=== PATIENT | male | born 1950 | race Caucasian/White ===

== ENCOUNTER 2017-11-26 16:23 | Inpatient (IN) | payer MEDICARE, MEDICAID ==
[~2017-11-26] VITALS: Ht 177.8 cm; Wt 96.4 kg
[2017-11-26] VITALS (17 sets, daily range): BP systolic 108–179; BP diastolic 65–88
[~2017-11-26 16:23] MED LIST: AMLO10TA PO; ASPI81TA46 PO; CARV6.253 PO; CHLO25TA2 PO; CINN1CAP PO; CLOP75TA15 PO; LISI40TA4 PO; METF500T PO; RAPATHA INJ
[2017-11-26 16:55] LABS: BASOPHILS % (AUTO) 0.2 % (0-1); EOSINOPHILS # (AUTO) 0.5 X10'3 (0-0.9); EOSINOPHILS % (AUTO) 5.4 % (0-6); HEMATOCRIT 42.7 % (42.0-52.0); HEMOGLOBIN 14.6 g/dl (14.0-17.9); LYMPHOCYTES # (AUTO) 1.6 X10'3 (1.1-4.8); LYMPHOCYTES % (AUTO) 17.5 % (21-51); MEAN CORPUSCULAR HEMOGLOBIN 32.5 PG (27.0-31.0); MEAN CORPUSCULAR HGB CONC 34.1 % (33.0-36.5); MEAN CORPUSCULAR VOLUME 95.3 FL (78-98); MONOCYTES # (AUTO) 0.7 X10'3 (0-0.9); MONOCYTES % (AUTO) 7.8 % (2-12); NEUTROPHILS # (AUTO) 6.5 X10'3 (1.8-7.7); NEUTROPHILS % (AUTO) 69.1 % (42-75); PLATELET COUNT 205 X10'3 (140-440); RED BLOOD COUNT 4.48 X10'6 (4.70-6.10); RED CELL DISTRIBUTION WIDTH 13.7 % (11.5-14.5); WHITE BLOOD COUNT 9.4 X10'3 (4.5-11.0)
[2017-11-26 17:05] LABS: PARTIAL THROMBOPLASTIN TIME 25 SECONDS (22-32); PROTHROMBIN TIME 10.3 SECONDS (9.0-12.0)
[2017-11-26 17:11] LABS: ALANINE AMINOTRANSFERASE 48 U/L (12-78); ALBUMIN 3.6 G/DL (3.4-5.0); ALBUMIN/GLOBULIN RATIO 0.9 (1.1-1.5); ALKALINE PHOSPHATASE 72 IU/L (46-116); ANION GAP 10 (8-16); ASPARTATE AMINO TRANSFERASE 46 U/L (10-37); BILIRUBIN,TOTAL 0.4 MG/DL (0.1-1.0); BLOOD UREA NITROGEN 15 MG/DL (7-18); BUN/CREATININE RATIO 13.6 (5.4-32.0); CALCIUM 9.1 MG/DL (8.5-10.1); CHLORIDE 102 MMOL/L (99-107); GLUCOSE 185 MG/DL (70-104); MAGNESIUM 1.6 MG/DL (1.5-2.4); POTASSIUM 4.1 MMOL/L (3.5-5.1); SODIUM 140 MMOL/L (135-145); TOTAL CARBON DIOXIDE 28.4 MMOL/L (24-32); TOTAL PROTEIN 7.6 G/DL (6.4-8.2); eGFR 67 ML/MIN
[2017-11-26] MEDS ORDERED: LIDOcaine 1%/PF (10mg/ml) 5ml vial ONE (17:40)
[2017-11-26] MEDS ORDERED: iohexol 300 MG/1 ML 50ml polymer ONE ×2 (17:41→17:55)
[2017-11-26] MEDS ORDERED: iohexol 300mg/ml 100ml inj. ONE ×2 (17:41→17:55)
[2017-11-26] MEDS ORDERED: midazolam 2 mg/2 ml injection IV PRN (17:45)
[2017-11-26] MEDS ORDERED: LIDOcaine 1% 30ml vial SQ ONE (17:45)
[2017-11-26] MEDS ORDERED: normal saline 1000ml 1,000 ML IV SCH (17:45)
[2017-11-26 17:46] LABS: CLARITY,URINE Clear (Clear); COLOR,URINE Yellow (Yellow); GLUCOSE, URINE 500 mg/dl (Neg); KETONES,URINE Negative (Neg); LEUKOCYTE ESTERASE ,URINE Negative (Neg); NITRITES, URINE Negative (Neg); OCCULT BLOOD,URINE Negative (Neg); PROTEIN,URINE Negative (Neg)
[2017-11-26 17:47] LABS: UA COLLECTION TYPE CLN CATCH MIDSTREAM
[2017-11-26] MEDS ORDERED: midazolam 2 mg/2 ml injection ONE ×2 (17:54→18:47)
[2017-11-26] MEDS ORDERED: heparin 1,000 UNITS/NS 500ml 500 ML ONE ×2 (17:54→19:18)
[2017-11-26] MEDS ORDERED: fentaNYL/PF 50MCG/1 ML 2ML syringe ONE ×2 (17:54→18:47)
[2017-11-26] MEDS ORDERED: heparin 1,000unit/ml 10ml vial 0 ML ONE (17:54)
[2017-11-26] MEDS ORDERED: heparin 1,000 UNITS/NS 500ml 500 ML IV SCH (20:30)
[2017-11-26] MEDS ORDERED: potassium Cl 20 mEq SR tablet PO PRN ×2 (21:05)
[2017-11-26] MEDS ORDERED: magnesium 4gm in 100ml NS 100 ML IV PRN (21:05)
[2017-11-26] MEDS ORDERED: magnesium 2GM in 50ml NS 50 ML IV PRN (21:05)
[2017-11-26] MEDS ORDERED: magnesium Cl slow-release 64mg tablet PO PRN (21:05)
[2017-11-26] MEDS ORDERED: HYDROcodone/acetaminophen 5mg/325mg tablet PO PRN (21:15)
[2017-11-26] MEDS ORDERED: HYDROcodone/acetaminophen 10/325mg tab PO PRN (21:15)
[2017-11-26] MEDS: heparin 1,000 UNITS/NS 500ml 500 ML IV SCH (22:21)
[2017-11-26] MEDS: tPA-cathflo 2mg/2ml IV flush 4 MG in normal saline 100ml IV soln 100 ML ICATH SCH ×2 (22:21→23:13)
[2017-11-26] MEDS ORDERED: HYDROmorphone 1 mg/ml syringe IV PRN (22:40)
[2017-11-26] MEDS: fentaNYL/PF 50MCG/1 ML 2ML syringe IV PRN ×2 (22:57→23:27)
[2017-11-26] MEDS ORDERED: naloxone 0.4 mg/ml inj IV PRN (23:30)
[2017-11-26] MEDS: pantoprazole 40 MG vial IV SCH (23:33)
[2017-11-26] MEDS: HYDROmorphone/NS 1 mg/ml CADD 50 ML IV SCH (23:54)
[2017-11-27] VITALS (26 sets, daily range): BP systolic 138–194; BP diastolic 73–96
[2017-11-27] MEDS: HYDROmorphone/NS 1 mg/ml CADD 50 ML IV SCH ×12 (00:24→23:00)
[2017-11-27] MEDS: tPA-cathflo 2mg/2ml IV flush 4 MG in normal saline 100ml IV soln 100 ML ICATH SCH ×2 (04:26→15:58)
[2017-11-27 05:32] LABS: BASOPHILS % (AUTO) 0.3 % (0-1); EOSINOPHILS # (AUTO) 0.3 X10'3 (0-0.9); EOSINOPHILS % (AUTO) 2.9 % (0-6); HEMATOCRIT 42.2 % (42.0-52.0); HEMOGLOBIN 14.3 g/dl (14.0-17.9); LYMPHOCYTES # (AUTO) 1.6 X10'3 (1.1-4.8); LYMPHOCYTES % (AUTO) 14.3 % (21-51); MEAN CORPUSCULAR HEMOGLOBIN 32.3 PG (27.0-31.0); MEAN CORPUSCULAR HGB CONC 33.8 % (33.0-36.5); MEAN CORPUSCULAR VOLUME 95.5 FL (78-98); MEAN PLATELET VOLUME 10.2 FL (7.4-10.4); MONOCYTES # (AUTO) 0.7 X10'3 (0-0.9); MONOCYTES % (AUTO) 6.5 % (2-12); NEUTROPHILS # (AUTO) 8.7 X10'3 (1.8-7.7); PLATELET COUNT 170 X10'3 (140-440); RED BLOOD COUNT 4.42 X10'6 (4.70-6.10); RED CELL DISTRIBUTION WIDTH 13.6 % (11.5-14.5); WHITE BLOOD COUNT 11.5 X10'3 (4.5-11.0)
[2017-11-27 05:50] LABS: INR 1.1 INR; PARTIAL THROMBOPLASTIN TIME 28 SECONDS (22-32); PROTHROMBIN TIME 11.4 SECONDS (9.0-12.0)
[2017-11-27 06:05] LABS: ALANINE AMINOTRANSFERASE 48 U/L (12-78); ALBUMIN 3.4 G/DL (3.4-5.0); ALBUMIN/GLOBULIN RATIO 0.9 (1.1-1.5); ALKALINE PHOSPHATASE 65 IU/L (46-116); ANION GAP 9 (8-16); ASPARTATE AMINO TRANSFERASE 51 U/L (10-37); BILIRUBIN,TOTAL 0.4 MG/DL (0.1-1.0); BLOOD UREA NITROGEN 12 MG/DL (7-18); CALCIUM 8.5 MG/DL (8.5-10.1); CHLORIDE 103 MMOL/L (99-107); GLUCOSE 223 MG/DL (70-104); MAGNESIUM 1.5 MG/DL (1.5-2.4); SODIUM 139 MMOL/L (135-145); TOTAL CARBON DIOXIDE 26.6 MMOL/L (24-32); eGFR 74 ML/MIN
[2017-11-27] MEDS: heparin 1,000 UNITS/NS 500ml 500 ML IV SCH ×2 (07:32→19:47)
[2017-11-27 07:33] LABS: HEMOGLOBIN A1C 6.8 % (4.5-6.2)
[2017-11-27] MEDS: pantoprazole 40 MG vial IV SCH (07:35)
[2017-11-27] MEDS: lisinopril 20mg tablet PO SCH (07:35)
[2017-11-27] MEDS: chlorthalidone 25mg tablet PO SCH (07:36)
[2017-11-27] MEDS: carvedilol 6.25mg tablet PO SCH ×2 (07:36→19:47)
[2017-11-27] MEDS: amLODIPine 5mg tablet PO SCH (07:36)
[2017-11-27] MEDS ORDERED: iohexol 300 MG/1 ML 50ml polymer ONE (11:52)
[2017-11-27] MEDS ORDERED: MESSAGE TO PHARMACY PO ONE (19:30)
[2017-11-27] MEDS ORDERED: dextrose 50%-water 50ml dispensing syringe IV PRN ×2 (19:30)
[2017-11-27] MEDS ORDERED: glucagon, human recombinant 1mg kit SUBCUT PRN (19:30)
[2017-11-27] MEDS ORDERED: dextrose ORAL solution 15 GM/59 ML bottle PO PRN (19:30)
[2017-11-27] MEDS: insulin glargine (Lantus) pen - multi-dose SQ SCH (21:03)
[2017-11-27 22:32] LABS: PARTIAL THROMBOPLASTIN TIME 29 SECONDS (22-32)
[2017-11-28] VITALS (63 sets, daily range): BP systolic 81–210; BP diastolic 54–95
[2017-11-28] MEDS: HYDROmorphone/NS 1 mg/ml CADD 50 ML IV SCH ×12 (00:51→23:00)
[2017-11-28] MEDS ORDERED: HYDROmorphone 1 mg/ml syringe IV ONE (03:35)
[2017-11-28] MEDS ORDERED: fentaNYL/PF 50MCG/1 ML 2ML syringe IV ONE ×2 (05:00→05:30)
[2017-11-28 05:20] LABS: BASOPHILS % (AUTO) 0 % (0-1); EOSINOPHILS # (AUTO) 0.4 X10'3 (0-0.9); EOSINOPHILS % (AUTO) 3.4 % (0-6); HEMATOCRIT 42.4 % (42.0-52.0); HEMOGLOBIN 14.9 g/dl (14.0-17.9); LYMPHOCYTES # (AUTO) 1.2 X10'3 (1.1-4.8); LYMPHOCYTES % (AUTO) 10.2 % (21-51); MEAN CORPUSCULAR HEMOGLOBIN 32.5 PG (27.0-31.0); MEAN CORPUSCULAR HGB CONC 35.1 % (33.0-36.5); MEAN CORPUSCULAR VOLUME 92.7 FL (78-98); MEAN PLATELET VOLUME 10.1 FL (7.4-10.4); MONOCYTES # (AUTO) 0.9 X10'3 (0-0.9); MONOCYTES % (AUTO) 7.1 % (2-12); NEUTROPHILS # (AUTO) 9.6 X10'3 (1.8-7.7); NEUTROPHILS % (AUTO) 79.3 % (42-75); PLATELET COUNT 142 X10'3 (140-440); RED BLOOD COUNT 4.57 X10'6 (4.70-6.10); RED CELL DISTRIBUTION WIDTH 13.3 % (11.5-14.5); WHITE BLOOD COUNT 12.1 X10'3 (4.5-11.0)
[2017-11-28 05:38] LABS: PARTIAL THROMBOPLASTIN TIME 30 SECONDS (22-32)
[2017-11-28 05:46] LABS: ALANINE AMINOTRANSFERASE 52 U/L (12-78); ALBUMIN 3.5 G/DL (3.4-5.0); ALBUMIN/GLOBULIN RATIO 0.9 (1.1-1.5); ALKALINE PHOSPHATASE 77 IU/L (46-116); ANION GAP 9 (8-16); ASPARTATE AMINO TRANSFERASE 86 U/L (10-37); BILIRUBIN,TOTAL 0.8 MG/DL (0.1-1.0); BLOOD UREA NITROGEN 11 MG/DL (7-18); BUN/CREATININE RATIO 12.2 (5.4-32.0); CALCIUM 8.9 MG/DL (8.5-10.1); CHLORIDE 102 MMOL/L (99-107); GLUCOSE 174 MG/DL (70-104); MAGNESIUM 1.6 MG/DL (1.5-2.4); POTASSIUM 3.7 MMOL/L (3.5-5.1); SODIUM 138 MMOL/L (135-145); TOTAL CARBON DIOXIDE 26.6 MMOL/L (24-32); TOTAL PROTEIN 7.2 G/DL (6.4-8.2); eGFR 84 ML/MIN
[2017-11-28] MEDS: chlorthalidone 25mg tablet PO SCH (08:00)
[2017-11-28] MEDS: lisinopril 20mg tablet PO SCH (08:00)
[2017-11-28] MEDS ORDERED: ringers solution, lacted 1,000 ML IV SCH (08:57)
[2017-11-28] MEDS: heparin 1,000 UNITS/NS 500ml 500 ML IV SCH (08:58)
[2017-11-28] MEDS ORDERED: midazolam 2 mg/2 ml injection ONE (08:58)
[2017-11-28] MEDS ORDERED: fentaNYL/PF 50MCG/1 ML 2ML syringe ONE (08:58)
[2017-11-28] MEDS: carvedilol 6.25mg tablet PO SCH ×2 (08:59→20:00)
[2017-11-28] MEDS: insulin Lispro (HumaLOG) vial - multi-dose SQ SCH (08:59)
[2017-11-28] MEDS: amLODIPine 5mg tablet PO SCH (08:59)
[2017-11-28] MEDS: pantoprazole 40mg Tablet.DR PO SCH (08:59)
[2017-11-28] MEDS ORDERED: ondansetron/PF 4mg/2ml inj IV PRN (09:00)
[2017-11-28] MEDS ORDERED: meperidine/PF 25mg/ml syringe IV PRN ×3 (09:00)
[2017-11-28] MEDS ORDERED: morphine 2 MG/ML inj. syringe IV PRN ×2 (09:00)
[2017-11-28] MEDS ORDERED: proCHLORperazine 10 MG/2 ml inj IV PRN (09:00)
[2017-11-28] MEDS ORDERED: propofol inj 20 ML IV ONE (09:02)
[2017-11-28] MEDS ORDERED: LIDOcaine 2% (20mg/ml) 5ml vial ONE (09:02)
[2017-11-28] MEDS ORDERED: succinylcholine 20mg/ml inj IV ONE (09:02)
[2017-11-28] MEDS ORDERED: rocuronium 10mg/ml inj IV ONE (09:02)
[2017-11-28 09:03] LABS: CREATINE KINASE 2420 U/L (39-308)
[2017-11-28] MEDS ORDERED: sevoflurane 250ml liquid IH ONE (09:21)
[2017-11-28] MEDS ORDERED: ondansetron/PF 4mg/2ml inj ONE (09:21)
[2017-11-28] MEDS ORDERED: ceFAZolin 1000mg inj ONE ×2 (09:37)
[2017-11-28] MEDS ORDERED: levoFLOXACIN-Levaquin 500mg/D5 100 ML IV ONE (11:50)
[2017-11-28] MEDS ORDERED: LIDOcaine 1% 30ml vial 0 ML ONE (12:05)
[2017-11-28] MEDS ORDERED: epiNEPHrine 1 mg/ml inj ONE (12:06)
[2017-11-28] MEDS ORDERED: LIDOcaine 1%/PF (10mg/ml) 5ml vial SQ ONE (12:35)
[2017-11-28] MEDS ORDERED: fentaNYL/PF 50MCG/1 ML 2ML syringe IV PRN (12:35)
[2017-11-28] MEDS ORDERED: midazolam 2 mg/2 ml injection IV PRN (12:35)
[2017-11-28] MEDS ORDERED: heparin 1,000 UNITS/NS 500ml 500 ML ICATH ONE (12:35)
[2017-11-28] MEDS ORDERED: heparin 1,000 UNITS/NS 500ml 500 ML ONE ×2 (12:42→12:43)
[2017-11-28] MEDS ORDERED: iohexol 300mg/ml 100ml inj. ONE (12:42)
[2017-11-28] MEDS ORDERED: LIDOcaine 1%/PF (10mg/ml) 5ml vial ONE (13:28)
[2017-11-28] MEDS ORDERED: heparin 1,000unit/ml 10ml vial 10 ML ONE (14:19)
[2017-11-28 16:16] LABS: HEMATOCRIT 38.1 % (42.0-52.0); HEMOGLOBIN 13.4 g/dl (14.0-17.9); MEAN CORPUSCULAR HEMOGLOBIN 32.9 PG (27.0-31.0); MEAN CORPUSCULAR HGB CONC 35.1 % (33.0-36.5); MEAN CORPUSCULAR VOLUME 93.9 FL (78-98); MEAN PLATELET VOLUME 8.9 FL (7.4-10.4); PLATELET COUNT 150 X10'3 (140-440); RED BLOOD COUNT 4.06 X10'6 (4.70-6.10); RED CELL DISTRIBUTION WIDTH 13.3 % (11.5-14.5); WHITE BLOOD COUNT 14.1 X10'3 (4.5-11.0)
[2017-11-28] MEDS ORDERED: clopidogrel 300mg tablet PO ONE (18:35)
[2017-11-28] MEDS ORDERED: enoxaparin 40mg/0.4ml syringe SUBCUT SCH (20:00)
[2017-11-28] MEDS ORDERED: clopidogrel 75mg tablet PO ONE (20:25)
[2017-11-28 20:49] LABS: BASOPHILS # (AUTO) 0.1 X10'3 (0-0.2); BASOPHILS % (AUTO) 0.9 % (0-1); EOSINOPHILS % (AUTO) 0.1 % (0-6); HEMATOCRIT 33.6 % (42.0-52.0); HEMOGLOBIN 11.6 g/dl (14.0-17.9); LYMPHOCYTES # (AUTO) 1.3 X10'3 (1.1-4.8); LYMPHOCYTES % (AUTO) 9.3 % (21-51); MEAN CORPUSCULAR HEMOGLOBIN 32.7 PG (27.0-31.0); MEAN CORPUSCULAR HGB CONC 34.5 % (33.0-36.5); MEAN CORPUSCULAR VOLUME 94.7 FL (78-98); MEAN PLATELET VOLUME 9.6 FL (7.4-10.4); MONOCYTES # (AUTO) 0.9 X10'3 (0-0.9); MONOCYTES % (AUTO) 6.7 % (2-12); NEUTROPHILS # (AUTO) 11.7 X10'3 (1.8-7.7); PLATELET COUNT 153 X10'3 (140-440); RED BLOOD COUNT 3.54 X10'6 (4.70-6.10); RED CELL DISTRIBUTION WIDTH 13.7 % (11.5-14.5)
[2017-11-28] MEDS: insulin glargine (Lantus) pen - multi-dose SQ SCH (22:58)
[2017-11-29] VITALS (28 sets, daily range): BP systolic 88–131; BP diastolic 48–69
[2017-11-29] MEDS: HYDROmorphone/NS 1 mg/ml CADD 50 ML IV SCH ×12 (01:00→23:00)
[2017-11-29 03:25] LABS: BASOPHILS % (AUTO) 0.1 % (0-1); EOSINOPHILS # (AUTO) 0.3 X10'3 (0-0.9); EOSINOPHILS % (AUTO) 1.3 % (0-6); HEMATOCRIT 32.9 % (42.0-52.0); HEMOGLOBIN 11.4 g/dl (14.0-17.9); LYMPHOCYTES # (AUTO) 1.7 X10'3 (1.1-4.8); MEAN CORPUSCULAR HEMOGLOBIN 32.4 PG (27.0-31.0); MEAN CORPUSCULAR HGB CONC 34.8 % (33.0-36.5); MEAN CORPUSCULAR VOLUME 93.1 FL (78-98); MEAN PLATELET VOLUME 10.6 FL (7.4-10.4); MONOCYTES % (AUTO) 8.1 % (2-12); NEUTROPHILS % (AUTO) 83.5 % (42-75); PLATELET COUNT 150 X10'3 (140-440); RED BLOOD COUNT 3.54 X10'6 (4.70-6.10); RED CELL DISTRIBUTION WIDTH 13.5 % (11.5-14.5)
[2017-11-29 04:03] LABS: TOTAL CELLS COUNTED 100
[2017-11-29 04:05] LABS: LARGE PLATELETS FEW; PLATELET ESTIMATE NORMAL
[2017-11-29 04:06] LABS: TOXIC GRANULATION 2+
[2017-11-29 05:21] LABS: PARTIAL THROMBOPLASTIN TIME 28 SECONDS (22-32)
[2017-11-29 05:33] LABS: ALBUMIN 2.9 G/DL (3.4-5.0); ALBUMIN/GLOBULIN RATIO 0.9 (1.1-1.5); ALKALINE PHOSPHATASE 82 IU/L (46-116); ANION GAP 18 (8-16); BILIRUBIN,TOTAL 1.4 MG/DL (0.1-1.0); BLOOD UREA NITROGEN 27 MG/DL (7-18); BUN/CREATININE RATIO 8.4 (5.4-32.0); CALCIUM 7.9 MG/DL (8.5-10.1); CHLORIDE 99 MMOL/L (99-107); GLUCOSE 144 MG/DL (70-104); MAGNESIUM 1.9 MG/DL (1.5-2.4); SODIUM 136 MMOL/L (135-145); TOTAL CARBON DIOXIDE 19.1 MMOL/L (24-32); TOTAL PROTEIN 6.2 G/DL (6.4-8.2); eGFR 19 ML/MIN
[2017-11-29 05:38] LABS: ALANINE AMINOTRANSFERASE 3192 U/L (12-78)
[2017-11-29 05:55] LABS: ASPARTATE AMINO TRANSFERASE 3922 U/L (10-37)
[2017-11-29 05:58] LABS: POTASSIUM 7.4 MMOL/L (3.5-5.1)
[2017-11-29] MEDS ORDERED: sodium bicarbonate (8.4%) 1 mEq/ml syringe IV STA (06:14)
[2017-11-29] MEDS ORDERED: calcium gluconate inj. 1 GM in normal saline 100ml IV soln 90 ML IV STA (06:14)
[2017-11-29] MEDS ORDERED: albuterol 2.5 MG/3 ML nebule CONTNEB STA (06:14)
[2017-11-29] MEDS ORDERED: sodium polystyrene sulfonate 15gm/60ml oral suspension PO STA (06:14)
[2017-11-29] MEDS ORDERED: dextrose 50%-water 50ml dispensing syringe IV STA (06:14)
[2017-11-29] MEDS ORDERED: normal saline 1000ml 1,000 ML IV SCH (06:15)
[2017-11-29] MEDS ORDERED: insulin regular, human 10 units/0.1 ml syringe IV ONE (06:15)
[2017-11-29] MEDS ORDERED: normal saline 1000ml 1,000 ML IV ONE (06:50)
[2017-11-29] MEDS: chlorthalidone 25mg tablet PO SCH (08:00)
[2017-11-29] MEDS: carvedilol 6.25mg tablet PO SCH ×2 (08:00→20:00)
[2017-11-29] MEDS: amLODIPine 5mg tablet PO SCH (08:00)
[2017-11-29] MEDS: sodium bicarbonate (8.4%) inj. 150 MEQ in dextrose 5%-water 1,000 ML IV SCH ×3 (08:10→20:42)
[2017-11-29 08:12] LABS: CREATINE KINASE 9354 U/L (39-308)
[2017-11-29] MEDS ORDERED: vancomycin/NS 1 GM ADD-VANTAGE 250 ML IV ONE (08:35)
[2017-11-29] MEDS ORDERED: vancomycin/NS 1 GM ADD-VANTAGE 250 ML X 1 DOSE IV PRN (08:40)
[2017-11-29 09:12] LABS: ALBUMIN 2.4 G/DL (3.4-5.0); ANION GAP 21 (8-16); BLOOD UREA NITROGEN 34 MG/DL (7-18); CALCIUM 7.5 MG/DL (8.5-10.1); CHLORIDE 101 MMOL/L (99-107); GLUCOSE 214 MG/DL (70-104); SODIUM 141 MMOL/L (135-145); TOTAL CARBON DIOXIDE 18.9 MMOL/L (24-32); eGFR 18 ML/MIN
[2017-11-29] MEDS: clopidogrel 75mg tablet PO SCH (09:13)
[2017-11-29] MEDS: levoFLOXACIN-Levaquin 500mg/D5 100 ML IV SCH (09:13)
[2017-11-29] MEDS: pantoprazole 40mg Tablet.DR PO SCH (09:13)
[2017-11-29] MEDS: CADD PCA waste documentation MC PRN (12:37)
[2017-11-29] MEDS: insulin Lispro (HumaLOG) vial - multi-dose SQ SCH (14:00)
[2017-11-29] MEDS: piperacillin-tazo 2.25gm/50ml 50 ML IV SCH ×2 (14:02→20:42)
[2017-11-29 16:11] LABS: ALBUMIN 2.4 G/DL (3.4-5.0); ALBUMIN/GLOBULIN RATIO 0.9 (1.1-1.5); ALKALINE PHOSPHATASE 93 IU/L (46-116); ANION GAP 17 (8-16); BILIRUBIN,TOTAL 0.7 MG/DL (0.1-1.0); BLOOD UREA NITROGEN 46 MG/DL (7-18); BUN/CREATININE RATIO 11.8 (5.4-32.0); CALCIUM 7.2 MG/DL (8.5-10.1); CHLORIDE 98 MMOL/L (99-107); GLUCOSE 219 MG/DL (70-104); POTASSIUM 5.1 MMOL/L (3.5-5.1); SODIUM 136 MMOL/L (135-145); TOTAL CARBON DIOXIDE 20.8 MMOL/L (24-32); TOTAL PROTEIN 5.2 G/DL (6.4-8.2); eGFR 15 ML/MIN
[2017-11-29 16:53] LABS: ALANINE AMINOTRANSFERASE > 7000 U/L (12-78); ASPARTATE AMINO TRANSFERASE > 7000 U/L (10-37)
[2017-11-29] MEDS: lactobacillus rhamnosus 10,000 MMU CELLS/CAPSULE PO SCH (17:24)
[2017-11-29] MEDS ORDERED: NORepinephrine 8mg/ 250ml NS 250 ML IV PRN (18:27)
[2017-11-29] MEDS: heparin, porcine 5000 units/ml vial SQ SCH (20:43)
[2017-11-29] MEDS: insulin glargine (Lantus) pen - multi-dose SQ SCH (20:48)
[2017-11-29 22:08] LABS: ALBUMIN 2.5 G/DL (3.4-5.0); ALBUMIN/GLOBULIN RATIO 0.9 (1.1-1.5); ALKALINE PHOSPHATASE 97 IU/L (46-116); ANION GAP 17 (8-16); BILIRUBIN,TOTAL 0.7 MG/DL (0.1-1.0); BLOOD UREA NITROGEN 54 MG/DL (7-18); BUN/CREATININE RATIO 12.3 (5.4-32.0); CHLORIDE 96 MMOL/L (99-107); GLUCOSE 209 MG/DL (70-104); POTASSIUM 4.2 MMOL/L (3.5-5.1); SODIUM 135 MMOL/L (135-145); TOTAL CARBON DIOXIDE 21.9 MMOL/L (24-32); TOTAL PROTEIN 5.3 G/DL (6.4-8.2); eGFR 13 ML/MIN
[2017-11-29 22:26] LABS: BASOPHILS % (AUTO) 0.1 % (0-1); EOSINOPHILS # (AUTO) 0.1 X10'3 (0-0.9); EOSINOPHILS % (AUTO) 0.8 % (0-6); HEMATOCRIT 26.6 % (42.0-52.0); HEMOGLOBIN 9.3 g/dl (14.0-17.9); LYMPHOCYTES # (AUTO) 0.7 X10'3 (1.1-4.8); LYMPHOCYTES % (AUTO) 5.3 % (21-51); MEAN CORPUSCULAR HGB CONC 34.9 % (33.0-36.5); MEAN CORPUSCULAR VOLUME 94.4 FL (78-98); MONOCYTES # (AUTO) 0.7 X10'3 (0-0.9); MONOCYTES % (AUTO) 5.6 % (2-12); NEUTROPHILS # (AUTO) 11.7 X10'3 (1.8-7.7); NEUTROPHILS % (AUTO) 88.2 % (42-75); PLATELET COUNT 124 X10'3 (140-440); RED BLOOD COUNT 2.82 X10'6 (4.70-6.10); RED CELL DISTRIBUTION WIDTH 13.6 % (11.5-14.5); WHITE BLOOD COUNT 13.3 X10'3 (4.5-11.0)
[2017-11-29 22:44] LABS: ALANINE AMINOTRANSFERASE > 7000 U/L (12-78); ASPARTATE AMINO TRANSFERASE > 7000 U/L (10-37)
[2017-11-30] VITALS (24 sets, daily range): BP systolic 87–223; BP diastolic 55–95
[2017-11-30] MEDS: HYDROmorphone/NS 1 mg/ml CADD 50 ML IV SCH ×12 (01:00→23:00)
[2017-11-30] MEDS: ondansetron/PF 4mg/2ml inj IV PRN (01:20)
[2017-11-30] MEDS ORDERED: amiodarone 150mg/dext, iso-os 100 ML IV ONE ×2 (02:36→02:40)
[2017-11-30] MEDS: VANCOMYCIN LEVEL IV SCH (03:00)
[2017-11-30] MEDS: piperacillin-tazo 2.25gm/50ml 50 ML IV SCH ×4 (03:01→20:00)
[2017-11-30] MEDS: amiodarone/D5 360MG/200ML BAG 200 ML IV SCH ×3 (03:06→19:35)
[2017-11-30] MEDS: sodium bicarbonate (8.4%) inj. 150 MEQ in dextrose 5%-water 1,000 ML IV SCH ×3 (03:54→19:36)
[2017-11-30 06:00] LABS: BASOPHILS % (AUTO) 0 % (0-1); EOSINOPHILS # (AUTO) 0.1 X10'3 (0-0.9); EOSINOPHILS % (AUTO) 0.7 % (0-6); HEMATOCRIT 24.1 % (42.0-52.0); HEMOGLOBIN 8.6 g/dl (14.0-17.9); LYMPHOCYTES # (AUTO) 0.6 X10'3 (1.1-4.8); LYMPHOCYTES % (AUTO) 6.2 % (21-51); MEAN CORPUSCULAR HGB CONC 35.6 % (33.0-36.5); MEAN CORPUSCULAR VOLUME 92.7 FL (78-98); MEAN PLATELET VOLUME 11.2 FL (7.4-10.4); MONOCYTES # (AUTO) 0.6 X10'3 (0-0.9); MONOCYTES % (AUTO) 5.9 % (2-12); NEUTROPHILS # (AUTO) 8.2 X10'3 (1.8-7.7); NEUTROPHILS % (AUTO) 87.2 % (42-75); PLATELET COUNT 103 X10'3 (140-440); RED CELL DISTRIBUTION WIDTH 13.6 % (11.5-14.5); WHITE BLOOD COUNT 9.4 X10'3 (4.5-11.0)
[2017-11-30 06:03] LABS: PARTIAL THROMBOPLASTIN TIME 28 SECONDS (22-32)
[2017-11-30 06:32] LABS: ALBUMIN 2.3 G/DL (3.4-5.0); ALBUMIN/GLOBULIN RATIO 0.9 (1.1-1.5); ALKALINE PHOSPHATASE 99 IU/L (46-116); ANION GAP 15 (8-16); BILIRUBIN,TOTAL 0.8 MG/DL (0.1-1.0); BLOOD UREA NITROGEN 61 MG/DL (7-18); BUN/CREATININE RATIO 12.2 (5.4-32.0); CALCIUM 6.5 MG/DL (8.5-10.1); CHLORIDE 93 MMOL/L (99-107); GLUCOSE 255 MG/DL (70-104); MAGNESIUM 1.5 MG/DL (1.5-2.4); POTASSIUM 3.3 MMOL/L (3.5-5.1); SODIUM 135 MMOL/L (135-145); TOTAL CARBON DIOXIDE 26.7 MMOL/L (24-32); TOTAL PROTEIN 4.9 G/DL (6.4-8.2); VANCOMYCIN,RANDOM 12.7 UG/ML; eGFR 12 ML/MIN
[2017-11-30 06:51] LABS: ALANINE AMINOTRANSFERASE > 7000 U/L (12-78)
[2017-11-30 07:07] LABS: ASPARTATE AMINO TRANSFERASE > 7000 U/L (10-37)
[2017-11-30 07:40] LABS: PLATELET ESTIMATE DECREASED; TOTAL CELLS COUNTED 100
[2017-11-30] MEDS: levoFLOXACIN-Levaquin 500mg/D5 100 ML IV SCH (07:52)
[2017-11-30] MEDS: clopidogrel 75mg tablet PO SCH (07:53)
[2017-11-30] MEDS: amLODIPine 5mg tablet PO SCH (07:53)
[2017-11-30] MEDS: carvedilol 6.25mg tablet PO SCH ×2 (07:53→20:00)
[2017-11-30] MEDS: heparin, porcine 5000 units/ml vial SQ SCH ×2 (07:53→21:07)
[2017-11-30] MEDS: chlorthalidone 25mg tablet PO SCH (07:53)
[2017-11-30] MEDS: lactobacillus rhamnosus 10,000 MMU CELLS/CAPSULE PO SCH ×2 (07:53→17:11)
[2017-11-30] MEDS: pantoprazole 40mg Tablet.DR PO SCH (07:54)
[2017-11-30] MEDS ORDERED: vancomycin/NS 1 GM ADD-VANTAGE 250 ML IV SCH (08:00)
[2017-11-30] MEDS ORDERED: vancomycin/NS 1 GM ADD-VANTAGE 250 ML IV ONE (08:05)
[2017-11-30] MEDS ORDERED: albumin (human) 25% 100ml IV 100 ML IV PRN (08:35)
[2017-11-30] MEDS ORDERED: heparin 1,000 units/ml 10ml inj HE ONE ×2 (08:35)
[2017-11-30] MEDS ORDERED: epoetin 20,000 units/ml inj IV ONE (08:35)
[2017-11-30] MEDS ORDERED: mannitol 20% (100GM) 500ml IV soln IV ONE (08:35)
[2017-11-30] MEDS: insulin Lispro (HumaLOG) vial - multi-dose SQ SCH ×2 (08:43→14:21)
[2017-11-30] MEDS: insulin glargine (Lantus) pen - multi-dose SQ SCH (22:38)
[2017-12-01] VITALS (24 sets, daily range): BP systolic 99–132; BP diastolic 52–68
[2017-12-01] MEDS: HYDROmorphone/NS 1 mg/ml CADD 50 ML IV SCH ×12 (01:00→23:00)
[2017-12-01] MEDS: piperacillin-tazo 2.25gm/50ml 50 ML IV SCH ×4 (01:29→20:26)
[2017-12-01] MEDS: ondansetron/PF 4mg/2ml inj IV PRN (02:25)
[2017-12-01] MEDS: VANCOMYCIN LEVEL IV SCH (03:00)
[2017-12-01 06:37] LABS: BASOPHILS % (AUTO) 0.1 % (0-1); EOSINOPHILS # (AUTO) 0.1 X10'3 (0-0.9); EOSINOPHILS % (AUTO) 0.7 % (0-6); HEMATOCRIT 26.4 % (42.0-52.0); HEMOGLOBIN 9.3 g/dl (14.0-17.9); LYMPHOCYTES # (AUTO) 0.9 X10'3 (1.1-4.8); LYMPHOCYTES % (AUTO) 5.6 % (21-51); MEAN CORPUSCULAR HEMOGLOBIN 32.8 PG (27.0-31.0); MEAN CORPUSCULAR VOLUME 93.6 FL (78-98); MEAN PLATELET VOLUME 11.3 FL (7.4-10.4); MONOCYTES # (AUTO) 0.8 X10'3 (0-0.9); MONOCYTES % (AUTO) 4.6 % (2-12); NEUTROPHILS # (AUTO) 14.6 X10'3 (1.8-7.7); PLATELET COUNT 123 X10'3 (140-440); RED BLOOD COUNT 2.82 X10'6 (4.70-6.10); RED CELL DISTRIBUTION WIDTH 13.4 % (11.5-14.5); WHITE BLOOD COUNT 16.5 X10'3 (4.5-11.0)
[2017-12-01 06:49] LABS: PARTIAL THROMBOPLASTIN TIME 30 SECONDS (22-32)
[2017-12-01 07:33] LABS: ALBUMIN 2.3 G/DL (3.4-5.0); ALBUMIN/GLOBULIN RATIO 0.9 (1.1-1.5); ALKALINE PHOSPHATASE 139 IU/L (46-116); ANION GAP 12 (8-16); BILIRUBIN,TOTAL 0.9 MG/DL (0.1-1.0); BLOOD UREA NITROGEN 45 MG/DL (7-18); BUN/CREATININE RATIO 10.2 (5.4-32.0); CALCIUM 6.7 MG/DL (8.5-10.1); CHLORIDE 96 MMOL/L (99-107); GLUCOSE 131 MG/DL (70-104); MAGNESIUM 1.5 MG/DL (1.5-2.4); POTASSIUM 3.1 MMOL/L (3.5-5.1); SODIUM 137 MMOL/L (135-145); TOTAL CARBON DIOXIDE 28.7 MMOL/L (24-32); VANCOMYCIN,RANDOM 16.6 UG/ML; eGFR 13 ML/MIN
[2017-12-01 07:54] LABS: ALANINE AMINOTRANSFERASE 4870 U/L (12-78); ASPARTATE AMINO TRANSFERASE 3113 U/L (10-37)
[2017-12-01] MEDS: amiodarone/D5 360MG/200ML BAG 200 ML IV SCH (07:57)
[2017-12-01] MEDS: chlorthalidone 25mg tablet PO SCH (08:00)
[2017-12-01] MEDS: amLODIPine 5mg tablet PO SCH (08:00)
[2017-12-01] MEDS: carvedilol 6.25mg tablet PO SCH ×2 (08:00→20:24)
[2017-12-01 08:07] LABS: TOTAL CELLS COUNTED 100
[2017-12-01 08:08] LABS: LARGE PLATELETS FEW; PLATELET ESTIMATE DECREASED; POLYCHROMASIA FEW; TOXIC GRANULATION 2+
[2017-12-01] MEDS: pantoprazole 40mg Tablet.DR PO SCH (08:38)
[2017-12-01] MEDS: lactobacillus rhamnosus 10,000 MMU CELLS/CAPSULE PO SCH ×2 (08:38→17:34)
[2017-12-01] MEDS: clopidogrel 75mg tablet PO SCH (08:38)
[2017-12-01] MEDS: heparin, porcine 5000 units/ml vial SQ SCH ×2 (08:39→20:28)
[2017-12-01] MEDS: insulin Lispro (HumaLOG) vial - multi-dose SQ SCH ×2 (09:13→20:23)
[2017-12-01] MEDS ORDERED: normal saline 1000ml 100 ML IV PRN (09:15)
[2017-12-01] MEDS ORDERED: normal saline 1000ml 250 ML IV PRN (09:15)
[2017-12-01] MEDS ORDERED: epoetin 20,000 units/ml inj IV ONE (09:15)
[2017-12-01] MEDS ORDERED: heparin 1,000 units/ml 10ml inj HE ONE ×2 (09:20)
[2017-12-01 16:32] LABS: CLARITY,URINE Clear (Clear); COLOR,URINE Yellow (Yellow); GLUCOSE, URINE 250 mg/dl (Neg); KETONES,URINE Negative (Neg); LEUKOCYTE ESTERASE ,URINE Negative (Neg); NITRITES, URINE Negative (Neg); OCCULT BLOOD,URINE Large (Neg); PH,URINE 7.5 (4.8-8.0); PROTEIN,URINE 100 mg/dl (Neg)
[2017-12-01 16:34] LABS: UA COLLECTION TYPE NON-SPECIFIED
[2017-12-01 17:28] LABS: BACTERIA,URINE NONE SEEN /HPF (Neg); COARSE GRANULAR CAST 0-3 /LPF (NEGATIVE); RBC,URINE 0-2 /HPF (0-2); SQUAMOUS EPITHELIAL CELL,UR NONE SEEN /LPF (FEW); WBC,URINE 0-4 /HPF (0-4)
[2017-12-01 17:35] LABS: UA EOSINOPHILS NO EOS /HPF
[2017-12-01] MEDS: amiodarone 200mg tablet PO SCH (20:24)
[2017-12-01] MEDS: insulin glargine (Lantus) pen - multi-dose SQ SCH (22:11)
[2017-12-02] VITALS (22 sets, daily range): BP systolic 88–147; BP diastolic 48–86
[2017-12-02] MEDS: HYDROmorphone/NS 1 mg/ml CADD 50 ML IV SCH ×12 (01:00→23:00)
[2017-12-02] MEDS: piperacillin-tazo 2.25gm/50ml 50 ML IV SCH ×4 (02:22→19:54)
[2017-12-02] MEDS: VANCOMYCIN LEVEL IV SCH (03:00)
[2017-12-02 05:42] LABS: BASOPHILS % (AUTO) 0.1 % (0-1); EOSINOPHILS # (AUTO) 0.5 X10'3 (0-0.9); EOSINOPHILS % (AUTO) 3.4 % (0-6); HEMATOCRIT 22.2 % (42.0-52.0); HEMOGLOBIN 7.8 g/dl (14.0-17.9); LYMPHOCYTES # (AUTO) 0.9 X10'3 (1.1-4.8); LYMPHOCYTES % (AUTO) 6.3 % (21-51); MEAN CORPUSCULAR HGB CONC 35.3 % (33.0-36.5); MEAN CORPUSCULAR VOLUME 93.5 FL (78-98); MEAN PLATELET VOLUME 10.9 FL (7.4-10.4); MONOCYTES # (AUTO) 0.9 X10'3 (0-0.9); MONOCYTES % (AUTO) 6.3 % (2-12); NEUTROPHILS # (AUTO) 11.9 X10'3 (1.8-7.7); NEUTROPHILS % (AUTO) 83.9 % (42-75); PLATELET COUNT 110 X10'3 (140-440); RED BLOOD COUNT 2.38 X10'6 (4.70-6.10); WHITE BLOOD COUNT 14.2 X10'3 (4.5-11.0)
[2017-12-02 06:10] LABS: PARTIAL THROMBOPLASTIN TIME 33 SECONDS (22-32)
[2017-12-02 06:37] LABS: ALBUMIN/GLOBULIN RATIO 0.8 (1.1-1.5); ALKALINE PHOSPHATASE 139 IU/L (46-116); ANION GAP 10 (8-16); ASPARTATE AMINO TRANSFERASE 853 U/L (10-37); BILIRUBIN,TOTAL 0.7 MG/DL (0.1-1.0); BLOOD UREA NITROGEN 44 MG/DL (7-18); CALCIUM 6.7 MG/DL (8.5-10.1); CHLORIDE 100 MMOL/L (99-107); GLUCOSE 129 MG/DL (70-104); MAGNESIUM 1.6 MG/DL (1.5-2.4); SODIUM 138 MMOL/L (135-145); TOTAL CARBON DIOXIDE 28.4 MMOL/L (24-32); TOTAL PROTEIN 4.5 G/DL (6.4-8.2); VANCOMYCIN,RANDOM 10.7 UG/ML; eGFR 13 ML/MIN
[2017-12-02 06:41] LABS: ALANINE AMINOTRANSFERASE 2641 U/L (12-78)
[2017-12-02] MEDS: chlorthalidone 25mg tablet PO SCH (08:00)
[2017-12-02] MEDS ORDERED: normal saline 1000ml 250 ML IV PRN (08:00)
[2017-12-02] MEDS ORDERED: normal saline 1000ml 100 ML IV PRN (08:00)
[2017-12-02] MEDS ORDERED: epoetin 20,000 units/ml inj IV ONE (08:00)
[2017-12-02] MEDS: amiodarone 200mg tablet PO SCH ×2 (08:00→19:54)
[2017-12-02] MEDS ORDERED: heparin 1,000 units/ml 10ml inj HE ONE ×2 (08:00)
[2017-12-02] MEDS: carvedilol 6.25mg tablet PO SCH ×2 (08:00→19:54)
[2017-12-02] MEDS: amLODIPine 5mg tablet PO SCH (08:00)
[2017-12-02] MEDS: pantoprazole 40mg Tablet.DR PO SCH (08:07)
[2017-12-02] MEDS: heparin, porcine 5000 units/ml vial SQ SCH ×2 (08:07→19:54)
[2017-12-02] MEDS: clopidogrel 75mg tablet PO SCH (08:07)
[2017-12-02] MEDS: lactobacillus rhamnosus 10,000 MMU CELLS/CAPSULE PO SCH ×2 (08:07→16:59)
[2017-12-02 08:09] LABS: TOTAL CELLS COUNTED 100
[2017-12-02 08:10] LABS: LARGE PLATELETS FEW; PLATELET ESTIMATE DECREASED; POLYCHROMASIA 1+; TOXIC GRANULATION 3+
[2017-12-02] MEDS ORDERED: vancomycin/NS 1 GM ADD-VANTAGE 250 ML X 1 DOSE IV ONE (11:00)
[2017-12-02 11:08] LABS: HBSAG SCREEN Negative (Negative)
[2017-12-02] MEDS: insulin Lispro (HumaLOG) vial - multi-dose SQ SCH ×2 (13:21→19:52)
[2017-12-02] MEDS: CADD PCA waste documentation MC PRN (17:12)
[2017-12-02] MEDS: insulin glargine (Lantus) pen - multi-dose SQ SCH (21:34)
[2017-12-03] VITALS: BP 101/55
[2017-12-03] MEDS: HYDROmorphone/NS 1 mg/ml CADD 50 ML IV SCH ×12 (01:00→23:00)
[2017-12-03] MEDS: piperacillin-tazo 2.25gm/50ml 50 ML IV SCH ×4 (01:34→23:47)
[2017-12-03] MEDS: VANCOMYCIN LEVEL IV SCH (03:00)
[2017-12-03 06:18] LABS: BASOPHILS % (AUTO) 0.3 % (0-1); EOSINOPHILS # (AUTO) 0.9 X10'3 (0-0.9); EOSINOPHILS % (AUTO) 6.9 % (0-6); HEMATOCRIT 22.3 % (42.0-52.0); HEMOGLOBIN 7.8 g/dl (14.0-17.9); LYMPHOCYTES # (AUTO) 1.6 X10'3 (1.1-4.8); LYMPHOCYTES % (AUTO) 12.1 % (21-51); MEAN CORPUSCULAR HEMOGLOBIN 33.2 PG (27.0-31.0); MEAN CORPUSCULAR HGB CONC 34.9 % (33.0-36.5); MEAN CORPUSCULAR VOLUME 95.1 FL (78-98); MEAN PLATELET VOLUME 10.2 FL (7.4-10.4); MONOCYTES # (AUTO) 1.3 X10'3 (0-0.9); MONOCYTES % (AUTO) 10.1 % (2-12); NEUTROPHILS # (AUTO) 9.4 X10'3 (1.8-7.7); NEUTROPHILS % (AUTO) 70.6 % (42-75); PLATELET COUNT 110 X10'3 (140-440); RED BLOOD COUNT 2.35 X10'6 (4.70-6.10); RED CELL DISTRIBUTION WIDTH 13.9 % (11.5-14.5); WHITE BLOOD COUNT 13.3 X10'3 (4.5-11.0)
[2017-12-03 06:58] LABS: ALBUMIN 1.9 G/DL (3.4-5.0); ALBUMIN/GLOBULIN RATIO 0.7 (1.1-1.5); ALKALINE PHOSPHATASE 145 IU/L (46-116); ANION GAP 9 (8-16); ASPARTATE AMINO TRANSFERASE 290 U/L (10-37); BILIRUBIN,TOTAL 0.7 MG/DL (0.1-1.0); BLOOD UREA NITROGEN 41 MG/DL (7-18); CALCIUM 7.1 MG/DL (8.5-10.1); CHLORIDE 103 MMOL/L (99-107); GLUCOSE 70 MG/DL (70-104); MAGNESIUM 1.7 MG/DL (1.5-2.4); POTASSIUM 3.3 MMOL/L (3.5-5.1); SODIUM 140 MMOL/L (135-145); TOTAL CARBON DIOXIDE 27.9 MMOL/L (24-32); TOTAL PROTEIN 4.6 G/DL (6.4-8.2); VANCOMYCIN,RANDOM 16.6 UG/ML; eGFR 15 ML/MIN
[2017-12-03 07:04] LABS: ALANINE AMINOTRANSFERASE 1637 U/L (12-78)
[2017-12-03] MEDS: dextrose ORAL solution 15 GM/59 ML bottle PO PRN ×3 (07:17→21:12)
[2017-12-03 07:30] VITALS: BP 125/61
[2017-12-03] MEDS: chlorthalidone 25mg tablet PO SCH (08:00)
[2017-12-03] MEDS: amLODIPine 5mg tablet PO SCH (08:00)
[2017-12-03] MEDS: lactobacillus rhamnosus 10,000 MMU CELLS/CAPSULE PO SCH ×2 (08:07→17:04)
[2017-12-03] MEDS: pantoprazole 40mg Tablet.DR PO SCH (08:07)
[2017-12-03] MEDS: amiodarone 200mg tablet PO SCH ×2 (08:08→20:25)
[2017-12-03] MEDS: carvedilol 6.25mg tablet PO SCH ×2 (08:08→20:25)
[2017-12-03] MEDS: clopidogrel 75mg tablet PO SCH (08:08)
[2017-12-03] MEDS: heparin, porcine 5000 units/ml vial SQ SCH ×2 (08:09→20:26)
[2017-12-03 11:00] VITALS: BP 115/59
[2017-12-03] MEDS: insulin Lispro (HumaLOG) vial - multi-dose SQ SCH ×2 (13:23→19:39)
[2017-12-03] MEDS ORDERED: potassium Cl 40MEQ/NS 500ml 500 ML IV PRN ×2 (18:35)
[2017-12-03] MEDS ORDERED: magnesium 2GM in 50ml NS 50 ML IV PRN (18:35)
[2017-12-03] MEDS ORDERED: magnesium 4gm in 100ml NS 100 ML IV PRN (18:35)
[2017-12-03] MEDS ORDERED: potassium Cl 20 mEq SR tablet PO PRN ×2 (18:35)
[2017-12-03] MEDS ORDERED: magnesium Cl slow-release 64mg tablet PO PRN (18:35)
[2017-12-03 19:00] VITALS: BP 115/61
[2017-12-03] MEDS: insulin glargine (Lantus) pen - multi-dose SQ SCH (21:33)
[2017-12-04] VITALS: BP 124/55
[2017-12-04] MEDS: HYDROmorphone/NS 1 mg/ml CADD 50 ML IV SCH ×12 (01:00→23:00)
[2017-12-04] MEDS: VANCOMYCIN LEVEL IV SCH (03:32)
[2017-12-04 06:17] LABS: BASOPHILS % (AUTO) 0 % (0-1); EOSINOPHILS % (AUTO) 6.7 % (0-6); HEMATOCRIT 23.9 % (42.0-52.0); HEMOGLOBIN 8.6 g/dl (14.0-17.9); LYMPHOCYTES # (AUTO) 1.4 X10'3 (1.1-4.8); LYMPHOCYTES % (AUTO) 9.8 % (21-51); MEAN CORPUSCULAR HEMOGLOBIN 34.1 PG (27.0-31.0); MEAN CORPUSCULAR HGB CONC 35.8 % (33.0-36.5); MEAN CORPUSCULAR VOLUME 95.1 FL (78-98); MEAN PLATELET VOLUME 10.5 FL (7.4-10.4); MONOCYTES # (AUTO) 1.3 X10'3 (0-0.9); MONOCYTES % (AUTO) 9.2 % (2-12); NEUTROPHILS # (AUTO) 10.6 X10'3 (1.8-7.7); NEUTROPHILS % (AUTO) 74.3 % (42-75); PLATELET COUNT 139 X10'3 (140-440); RED BLOOD COUNT 2.51 X10'6 (4.70-6.10); RED CELL DISTRIBUTION WIDTH 14.5 % (11.5-14.5); WHITE BLOOD COUNT 14.3 X10'3 (4.5-11.0)
[2017-12-04 07:00] VITALS: BP 127/57
[2017-12-04 07:06] LABS: ALANINE AMINOTRANSFERASE 1173 U/L (12-78); ALBUMIN/GLOBULIN RATIO 0.7 (1.1-1.5); ALKALINE PHOSPHATASE 167 IU/L (46-116); ANION GAP 9 (8-16); ASPARTATE AMINO TRANSFERASE 158 U/L (10-37); BILIRUBIN,TOTAL 0.6 MG/DL (0.1-1.0); BLOOD UREA NITROGEN 54 MG/DL (7-18); BUN/CREATININE RATIO 10.8 (5.4-32.0); CALCIUM 7.8 MG/DL (8.5-10.1); CHLORIDE 100 MMOL/L (99-107); GLUCOSE 113 MG/DL (70-104); MAGNESIUM 1.7 MG/DL (1.5-2.4); POTASSIUM 3.4 MMOL/L (3.5-5.1); SODIUM 136 MMOL/L (135-145); TOTAL CARBON DIOXIDE 27.1 MMOL/L (24-32); TOTAL PROTEIN 4.8 G/DL (6.4-8.2); VANCOMYCIN,RANDOM 12.1 UG/ML; eGFR 12 ML/MIN
[2017-12-04 07:52] LABS: BANDS% (MANUAL) 3 % (0-10); BASOPHILS % (MANUAL) 1 % (0-1); EOSINOPHILS % (MANUAL) 7 % (0-6); LYMPHOCYTES % (MANUAL) 4 % (21-51); METAMYLEOCYTES% (MANUAL) 5 % (0-0); MONOCYTES % (MANUAL) 3 % (2-12); MYELOCYTES % (MANUAL) 1 % (0-0); NEUTROPHILS % (MANUAL) 76 % (42-75); PLATELET ESTIMATE DECREASED; TOTAL CELLS COUNTED 100
[2017-12-04] MEDS: pantoprazole 40mg Tablet.DR PO SCH (08:12)
[2017-12-04] MEDS: chlorthalidone 25mg tablet PO SCH (08:12)
[2017-12-04] MEDS: amiodarone 200mg tablet PO SCH ×2 (08:12→20:40)
[2017-12-04] MEDS: clopidogrel 75mg tablet PO SCH (08:12)
[2017-12-04] MEDS: carvedilol 6.25mg tablet PO SCH ×2 (08:12→20:40)
[2017-12-04] MEDS: amLODIPine 5mg tablet PO SCH (08:13)
[2017-12-04] MEDS: lactobacillus rhamnosus 10,000 MMU CELLS/CAPSULE PO SCH ×2 (08:13→17:18)
[2017-12-04] MEDS: piperacillin-tazo 2.25gm/50ml 50 ML IV SCH ×2 (08:13→17:18)
[2017-12-04] MEDS: heparin, porcine 5000 units/ml vial SQ SCH ×2 (08:13→20:41)
[2017-12-04] MEDS: insulin Lispro (HumaLOG) vial - multi-dose SQ SCH ×3 (08:23→18:56)
[2017-12-04] MEDS ORDERED: vancomycin/NS 1 GM ADD-VANTAGE 250 ML X 1 DOSE IV ONE (09:25)
[2017-12-04 11:00] VITALS: BP 120/66
[2017-12-04] MEDS ORDERED: piperacillin-tazo 2.25gm/50ml 50 ML IV SCH (16:13)
[2017-12-04 19:20] VITALS: BP 116/67
[2017-12-04] MEDS: insulin glargine (Lantus) pen - multi-dose SQ SCH (22:14)
[2017-12-05] VITALS: BP 102/56
[2017-12-05] MEDS: piperacillin-tazo 2.25gm/50ml 50 ML IV SCH ×2 (00:06→07:13)
[2017-12-05] MEDS: HYDROmorphone/NS 1 mg/ml CADD 50 ML IV SCH ×12 (01:00→23:00)
[2017-12-05] MEDS: VANCOMYCIN LEVEL IV SCH (03:34)
[2017-12-05 06:07] LABS: BASOPHILS % (AUTO) 0.1 % (0-1); EOSINOPHILS # (AUTO) 1.2 X10'3 (0-0.9); EOSINOPHILS % (AUTO) 7.4 % (0-6); HEMATOCRIT 24.8 % (42.0-52.0); HEMOGLOBIN 8.7 g/dl (14.0-17.9); LYMPHOCYTES # (AUTO) 1.5 X10'3 (1.1-4.8); LYMPHOCYTES % (AUTO) 9.7 % (21-51); MEAN CORPUSCULAR HEMOGLOBIN 33.2 PG (27.0-31.0); MEAN CORPUSCULAR HGB CONC 35.3 % (33.0-36.5); MEAN CORPUSCULAR VOLUME 94.2 FL (78-98); MEAN PLATELET VOLUME 10.8 FL (7.4-10.4); MONOCYTES # (AUTO) 1.5 X10'3 (0-0.9); MONOCYTES % (AUTO) 9.4 % (2-12); NEUTROPHILS # (AUTO) 11.4 X10'3 (1.8-7.7); NEUTROPHILS % (AUTO) 73.4 % (42-75); PLATELET COUNT 155 X10'3 (140-440); RED BLOOD COUNT 2.63 X10'6 (4.70-6.10); RED CELL DISTRIBUTION WIDTH 14.6 % (11.5-14.5); WHITE BLOOD COUNT 15.6 X10'3 (4.5-11.0)
[2017-12-05 06:27] LABS: ALANINE AMINOTRANSFERASE 895 U/L (12-78); ALBUMIN 2.2 G/DL (3.4-5.0); ALBUMIN/GLOBULIN RATIO 0.7 (1.1-1.5); ALKALINE PHOSPHATASE 173 IU/L (46-116); ANION GAP 10 (8-16); ASPARTATE AMINO TRANSFERASE 113 U/L (10-37); BILIRUBIN,TOTAL 0.7 MG/DL (0.1-1.0); BLOOD UREA NITROGEN 61 MG/DL (7-18); BUN/CREATININE RATIO 12.2 (5.4-32.0); CALCIUM 8.3 MG/DL (8.5-10.1); CHLORIDE 101 MMOL/L (99-107); GLUCOSE 100 MG/DL (70-104); MAGNESIUM 1.9 MG/DL (1.5-2.4); POTASSIUM 3.9 MMOL/L (3.5-5.1); SODIUM 135 MMOL/L (135-145); TOTAL PROTEIN 5.3 G/DL (6.4-8.2); VANCOMYCIN,RANDOM 19.7 UG/ML; eGFR 12 ML/MIN
[2017-12-05] MEDS: amLODIPine 5mg tablet PO SCH (07:12)
[2017-12-05] MEDS: amiodarone 200mg tablet PO SCH ×2 (07:12→20:44)
[2017-12-05] MEDS: carvedilol 6.25mg tablet PO SCH ×2 (07:12→20:44)
[2017-12-05] MEDS: chlorthalidone 25mg tablet PO SCH (07:13)
[2017-12-05] MEDS: clopidogrel 75mg tablet PO SCH (07:14)
[2017-12-05] MEDS: heparin, porcine 5000 units/ml vial SQ SCH ×2 (07:14→20:46)
[2017-12-05] MEDS: lactobacillus rhamnosus 10,000 MMU CELLS/CAPSULE PO SCH ×2 (07:16→17:36)
[2017-12-05] MEDS: pantoprazole 40mg Tablet.DR PO SCH (07:16)
[2017-12-05 08:00] VITALS: BP 108/65
[2017-12-05 11:00] VITALS: BP 110/63
[2017-12-05] MEDS: insulin Lispro (HumaLOG) vial - multi-dose SQ SCH ×2 (14:07→19:00)
[2017-12-05 19:30] VITALS: BP 143/73
[2017-12-05] MEDS: insulin glargine (Lantus) pen - multi-dose SQ SCH (23:03)
[2017-12-06] VITALS: BP 121/72
[2017-12-06] MEDS: HYDROmorphone/NS 1 mg/ml CADD 50 ML IV SCH ×7 (01:00→15:00)
[2017-12-06] MEDS: VANCOMYCIN LEVEL IV SCH (03:00)
[2017-12-06 06:17] LABS: BASOPHILS % (AUTO) 0.3 % (0-1); EOSINOPHILS % (AUTO) 6.7 % (0-6); HEMATOCRIT 24.4 % (42.0-52.0); HEMOGLOBIN 8.3 g/dl (14.0-17.9); LYMPHOCYTES # (AUTO) 1.8 X10'3 (1.1-4.8); LYMPHOCYTES % (AUTO) 11.9 % (21-51); MEAN CORPUSCULAR HEMOGLOBIN 32.1 PG (27.0-31.0); MEAN CORPUSCULAR HGB CONC 33.8 % (33.0-36.5); MEAN CORPUSCULAR VOLUME 94.7 FL (78-98); MEAN PLATELET VOLUME 10.8 FL (7.4-10.4); MONOCYTES # (AUTO) 1.4 X10'3 (0-0.9); MONOCYTES % (AUTO) 9.8 % (2-12); NEUTROPHILS # (AUTO) 10.6 X10'3 (1.8-7.7); NEUTROPHILS % (AUTO) 71.3 % (42-75); PLATELET COUNT 180 X10'3 (140-440); RED BLOOD COUNT 2.57 X10'6 (4.70-6.10); RED CELL DISTRIBUTION WIDTH 14.8 % (11.5-14.5); WHITE BLOOD COUNT 14.8 X10'3 (4.5-11.0)
[2017-12-06 06:30] LABS: ALANINE AMINOTRANSFERASE 660 U/L (12-78); ALBUMIN 2.2 G/DL (3.4-5.0); ALBUMIN/GLOBULIN RATIO 0.7 (1.1-1.5); ALKALINE PHOSPHATASE 172 IU/L (46-116); ANION GAP 10 (8-16); ASPARTATE AMINO TRANSFERASE 79 U/L (10-37); BILIRUBIN,TOTAL 0.7 MG/DL (0.1-1.0); BLOOD UREA NITROGEN 65 MG/DL (7-18); BUN/CREATININE RATIO 13.3 (5.4-32.0); CALCIUM 8.3 MG/DL (8.5-10.1); CHLORIDE 102 MMOL/L (99-107); GLUCOSE 106 MG/DL (70-104); MAGNESIUM 1.7 MG/DL (1.5-2.4); POTASSIUM 4.3 MMOL/L (3.5-5.1); SODIUM 136 MMOL/L (135-145); TOTAL CARBON DIOXIDE 24.5 MMOL/L (24-32); TOTAL PROTEIN 5.5 G/DL (6.4-8.2); VANCOMYCIN,RANDOM 15.2 UG/ML; eGFR 12 ML/MIN
[2017-12-06 07:29] LABS: BASOPHILS % (MANUAL) 1 % (0-1); EOSINOPHILS % (MANUAL) 3 % (0-6); LARGE PLATELETS FEW; LYMPHOCYTES % (MANUAL) 6 % (21-51); METAMYLEOCYTES% (MANUAL) 3 % (0-0); MONOCYTES % (MANUAL) 9 % (2-12); NEUTROPHILS % (MANUAL) 77 % (42-75); PLATELET ESTIMATE NORMAL; REACTIVE LYMPHOCYTES % 1 % (0-0); TOTAL CELLS COUNTED 100
[2017-12-06] MEDS: chlorthalidone 25mg tablet PO SCH (08:27)
[2017-12-06] MEDS: lactobacillus rhamnosus 10,000 MMU CELLS/CAPSULE PO SCH ×2 (08:27→17:42)
[2017-12-06] MEDS: pantoprazole 40mg Tablet.DR PO SCH (08:27)
[2017-12-06] MEDS: amLODIPine 5mg tablet PO SCH (08:28)
[2017-12-06] MEDS: heparin, porcine 5000 units/ml vial SQ SCH ×2 (08:28→19:20)
[2017-12-06] MEDS: amiodarone 200mg tablet PO SCH ×2 (08:28→19:19)
[2017-12-06] MEDS: clopidogrel 75mg tablet PO SCH (08:28)
[2017-12-06] MEDS: carvedilol 6.25mg tablet PO SCH ×2 (08:28→19:19)
[2017-12-06] MEDS: levoFLOXACIN 250mg tablet PO SCH (11:37)
[2017-12-06 12:00] VITALS: BP 110/58
[2017-12-06] MEDS: HYDROcodone/acetaminophen 10/325mg tab PO PRN ×2 (15:33→21:54)
[2017-12-06 18:30] VITALS: BP 116/57
[2017-12-06] MEDS: insulin Lispro (HumaLOG) vial - multi-dose SQ SCH (19:24)
[2017-12-06] MEDS: insulin glargine (Lantus) pen - multi-dose SQ SCH (21:53)
[2017-12-07] VITALS: BP 113/59
[2017-12-07] MEDS: HYDROcodone/acetaminophen 10/325mg tab PO PRN ×2 (05:47→13:41)
[2017-12-07 06:15] LABS: BASOPHILS % (AUTO) 0.3 % (0-1); EOSINOPHILS # (AUTO) 0.6 X10'3 (0-0.9); EOSINOPHILS % (AUTO) 5.7 % (0-6); HEMATOCRIT 23.3 % (42.0-52.0); HEMOGLOBIN 8.1 g/dl (14.0-17.9); LYMPHOCYTES # (AUTO) 1.4 X10'3 (1.1-4.8); LYMPHOCYTES % (AUTO) 12.8 % (21-51); MEAN CORPUSCULAR HGB CONC 34.6 % (33.0-36.5); MEAN CORPUSCULAR VOLUME 95.4 FL (78-98); MEAN PLATELET VOLUME 10.7 FL (7.4-10.4); MONOCYTES # (AUTO) 1.2 X10'3 (0-0.9); MONOCYTES % (AUTO) 10.6 % (2-12); NEUTROPHILS # (AUTO) 7.9 X10'3 (1.8-7.7); NEUTROPHILS % (AUTO) 70.6 % (42-75); PLATELET COUNT 193 X10'3 (140-440); RED BLOOD COUNT 2.44 X10'6 (4.70-6.10); RED CELL DISTRIBUTION WIDTH 14.8 % (11.5-14.5); WHITE BLOOD COUNT 11.2 X10'3 (4.5-11.0)
[2017-12-07 06:18] LABS: ALANINE AMINOTRANSFERASE 478 U/L (12-78); ALBUMIN 2.1 G/DL (3.4-5.0); ALBUMIN/GLOBULIN RATIO 0.6 (1.1-1.5); ALKALINE PHOSPHATASE 156 IU/L (46-116); ANION GAP 12 (8-16); ASPARTATE AMINO TRANSFERASE 58 U/L (10-37); BILIRUBIN,TOTAL 0.6 MG/DL (0.1-1.0); BLOOD UREA NITROGEN 65 MG/DL (7-18); BUN/CREATININE RATIO 14.4 (5.4-32.0); CALCIUM 8.3 MG/DL (8.5-10.1); CHLORIDE 103 MMOL/L (99-107); GLUCOSE 106 MG/DL (70-104); MAGNESIUM 1.8 MG/DL (1.5-2.4); POTASSIUM 4.4 MMOL/L (3.5-5.1); SODIUM 138 MMOL/L (135-145); TOTAL CARBON DIOXIDE 23.3 MMOL/L (24-32); TOTAL PROTEIN 5.4 G/DL (6.4-8.2); VANCOMYCIN,RANDOM 11.7 UG/ML; eGFR 13 ML/MIN
[2017-12-07] MEDS: VANCOMYCIN LEVEL IV SCH (06:44)
[2017-12-07 07:28] VITALS: BP 119/64
[2017-12-07] MEDS: pantoprazole 40mg Tablet.DR PO SCH (07:49)
[2017-12-07] MEDS: carvedilol 6.25mg tablet PO SCH (07:50)
[2017-12-07] MEDS: heparin, porcine 5000 units/ml vial SQ SCH (07:50)
[2017-12-07] MEDS: clopidogrel 75mg tablet PO SCH (07:50)
[2017-12-07] MEDS: amiodarone 200mg tablet PO SCH (07:50)
[2017-12-07] MEDS: lactobacillus rhamnosus 10,000 MMU CELLS/CAPSULE PO SCH ×2 (07:50→17:05)
[2017-12-07] MEDS: chlorthalidone 25mg tablet PO SCH (07:50)
[2017-12-07] MEDS: amLODIPine 5mg tablet PO SCH (07:50)
[2017-12-07] MEDS: insulin Lispro (HumaLOG) vial - multi-dose SQ SCH ×2 (08:00→13:37)
[2017-12-07] MEDS ORDERED: vancomycin/NS 1 GM ADD-VANTAGE 250 ML X 1 DOSE IV ONE (09:10)
[2017-12-07] MEDS: levoFLOXACIN 250mg tablet PO SCH (10:03)
[2017-12-07 12:00] VITALS: BP 124/71
[2017-12-07] MEDS ORDERED: HEPA500017 SQ (15:34)
[2017-12-07] MEDS ORDERED: HYDR-3972 PO (15:34)
== END 2017-12-07 18:15 | DRG 253 ==
LOC: ER 16:23 → CICU 2S 21:00 → MED 3N 12-02 20:27
PROVIDERS: ADMIT Internal Medicine Critical Care Medicine; ATTEND Internal Medicine Critical Care Medicine
PROC: 3E05317 Introduction of Other Thrombolytic into Peripheral Artery, Percutaneous Approach (ICD-10-PCS; principal; 2017-11-26)
PROC: B41G1ZZ Fluoroscopy of Left Lower Extremity Arteries using Low Osmolar Contrast (ICD-10-PCS; 2017-11-26)
PROC: 3E05317 Introduction of Other Thrombolytic into Peripheral Artery, Percutaneous Approach (ICD-10-PCS; 2017-11-27)
PROC: 047L3ZZ Dilation of Left Femoral Artery, Percutaneous Approach (ICD-10-PCS; 2017-11-28)
PROC: 047H3DZ Dilation of Right External Iliac Artery with Intraluminal Device, Percutaneous Approach (ICD-10-PCS; 2017-11-28)
PROC: 047N3ZZ Dilation of Left Popliteal Artery, Percutaneous Approach (ICD-10-PCS; 2017-11-28)
PROC: 047U3ZZ Dilation of Left Peroneal Artery, Percutaneous Approach (ICD-10-PCS; 2017-11-28)
PROC: 047Q3ZZ Dilation of Left Anterior Tibial Artery, Percutaneous Approach (ICD-10-PCS; 2017-11-28)
PROC: 0KNT0ZZ Release Left Lower Leg Muscle, Open Approach (ICD-10-PCS; 2017-11-28)
PROC: B41G1ZZ Fluoroscopy of Left Lower Extremity Arteries using Low Osmolar Contrast (ICD-10-PCS; 2017-11-28)
PROC: 0KNT0ZZ Release Left Lower Leg Muscle, Open Approach (ICD-10-PCS; 2017-11-28)
PROC: 0KNT0ZZ Release Left Lower Leg Muscle, Open Approach (ICD-10-PCS; 2017-11-28)
PROC: 0KNT0ZZ Release Left Lower Leg Muscle, Open Approach (ICD-10-PCS; 2017-11-28)
PROC: 5A1D70Z Performance of Urinary Filtration, Intermittent, Less than 6 Hours Per Day (ICD-10-PCS; 2017-11-30)
PROC: 5A1D70Z Performance of Urinary Filtration, Intermittent, Less than 6 Hours Per Day (ICD-10-PCS; 2017-12-01)
PROC: 5A1D70Z Performance of Urinary Filtration, Intermittent, Less than 6 Hours Per Day (ICD-10-PCS; 2017-12-02)
DX: I74.3 Embolism and thrombosis of arteries of the lower extremities (principal); N17.9 Acute kidney failure, unspecified; E87.2 Acidosis; T79.A22A Traumatic compartment syndrome of left lower extremity, initial encounter; E11.40 Type 2 diabetes mellitus with diabetic neuropathy, unspecified; E11.65 Type 2 diabetes mellitus with hyperglycemia; E11.51 Type 2 diabetes mellitus with diabetic peripheral angiopathy without gangrene; E78.5 Hyperlipidemia, unspecified; E87.5 Hyperkalemia; I10 Essential (primary) hypertension; E78.00 Pure hypercholesterolemia, unspecified; I25.10 Atherosclerotic heart disease of native coronary artery without angina pectoris; I99.8 Other disorder of circulatory system; Z99.2 Dependence on renal dialysis; Z95.1 Presence of aortocoronary bypass graft; Z79.82 Long term (current) use of aspirin; Z79.899 Other long term (current) drug therapy; Z79.84 Long term (current) use of oral hypoglycemic drugs; Z88.2 Allergy status to sulfonamides; Z88.8 Allergy status to other drugs, medicaments and biological substances; Z91.048 Other nonmedicinal substance allergy status; Z82.49 Family history of ischemic heart disease and other diseases of the circulatory system; Z82.5 Family history of asthma and other chronic lower respiratory diseases
CPT/HCPCS: 36245; 36247; 36415; 37211; 37213; 37214; 37226; 71045; 75710; 75716; 76937; 80048; 80053; 80202; 81001; 81003; 82550; 82570; 82948; 83036; 83605; 83735; 84132; 84145; 84300; 85025; 85027; 85347; 85384; 85610; 85730; 86885; 86900; 86901; 86920; 87040; 87070; 87207; 87340; 87502; 87503; 90935; 93005; 94760; 96360; 96361; 97110; 97116; 97161; 97530; 99152; 99153; 99291; A6212; A6213; A6219; A6222; A6223; A6253; A6255; A6257; A6258; A6446; A6449; A7000; C1725; C1769; C1876; C1885; C1887; C1894; C9113; G0257; J0171; J0282; J0330; J0610; J0690; J0780; J0885; J1170; J1644; J1815; J1956; J2001; J2175; J2250; J2405; J2543; J2704; J2997; J3010; J3370; J3490; J7030; J7120; Q9967

== ENCOUNTER 2018-02-10 11:58 | Emergency (ER) | payer MEDICARE, MEDICAID ==
[~2018-02-10] VITALS: Ht 177.8 cm; Wt 91.0 kg
[~2018-02-10 11:58] MED LIST changes: -CINN1CAP PO; +HEPA500017 SQ; +HYDR-3972 PO; -METF500T PO; -RAPATHA INJ
[2018-02-10] MEDS ORDERED: traMADol 50MG tablet PO ONE (12:40)
[2018-02-10] MEDS ORDERED: PANT-47 PO (14:24)
[2018-02-10] MEDS ORDERED: IBUP-1985 PO (14:24)
[2018-02-10] MEDS ORDERED: TRAM50TA2 PO (14:37)
[2018-02-10 14:54] VITALS: BP 28/81
== END 2018-02-10 14:56 | disposition home or self-care (01) ==
LOC: ER 11:59
DX: R07.89 Other chest pain (principal); I10 Essential (primary) hypertension; E11.9 Type 2 diabetes mellitus without complications; I25.10 Atherosclerotic heart disease of native coronary artery without angina pectoris; Z95.1 Presence of aortocoronary bypass graft; Z98.61 Coronary angioplasty status; Z79.82 Long term (current) use of aspirin; Z79.899 Other long term (current) drug therapy; Z88.9 Allergy status to unspecified drugs, medicaments and biological substances; Z88.2 Allergy status to sulfonamides; Z91.011 Allergy to milk products
CPT/HCPCS: 71101; 99283

== ENCOUNTER 2018-09-17 10:13 | Emergency (ER) | payer MEDICARE, MEDICAID ==
[~2018-09-17] VITALS: Ht 177.8 cm; Wt 104.9 kg
[~2018-09-17 10:13] MED LIST changes: +IBUP-1985 PO; +PANT-47 PO
[2018-09-17 10:26] VITALS: BP 163/82
[2018-09-17] MEDS ORDERED: triamcinolone acetonide 40mg/ml inj IM ONE (11:00)
[2018-09-17] MEDS ORDERED: METH4TAB3 PO (11:08)
== END 2018-09-17 11:28 | disposition home or self-care (01) ==
LOC: ER 10:14
DX: L20.89 Other atopic dermatitis (principal); I25.10 Atherosclerotic heart disease of native coronary artery without angina pectoris; E78.00 Pure hypercholesterolemia, unspecified; I10 Essential (primary) hypertension; E11.9 Type 2 diabetes mellitus without complications; Z95.5 Presence of coronary angioplasty implant and graft; Z95.1 Presence of aortocoronary bypass graft; Z88.2 Allergy status to sulfonamides; Z88.8 Allergy status to other drugs, medicaments and biological substances; Z79.82 Long term (current) use of aspirin; Z79.899 Other long term (current) drug therapy
CPT/HCPCS: 96372; 99283; J3301

== ENCOUNTER 2019-06-24 10:24 | Inpatient (IN) | payer MEDICARE, MEDICAID ==
[~2019-06-24] VITALS: Ht 177.8 cm; Wt 98.6 kg
[~2019-06-24 10:24] MED LIST changes: +ASPI81TA44 PO; -ASPI81TA46 PO; +METH4TAB3 PO
[2019-06-24] MEDS ORDERED: METF500T PO (10:44)
[2019-06-24] MEDS ORDERED: CARV3.122 PO (10:46)
[2019-06-24] MEDS ORDERED: APIX2.5T PO (10:48)
[2019-06-24] MEDS ORDERED: CINN1CAP PO (10:50)
[2019-06-24] MEDS ORDERED: normal saline 1000ML IV soln IVB ONE (11:00)
[2019-06-24 11:25] LABS: CLARITY,URINE CLEAR (Clear); COLOR,URINE STRAW (Yellow); GLUCOSE, URINE 100 mg/dl (Neg); KETONES,URINE NEGATIVE (Neg); LEUKOCYTE ESTERASE ,URINE NEGATIVE (Neg); NITRITES, URINE NEGATIVE (Neg); OCCULT BLOOD,URINE NEGATIVE (Neg); PROTEIN,URINE NEGATIVE (Neg); UROBILINOGEN,URINE 0.2 E.U/dL (0.2-1.0)
[2019-06-24 11:27] LABS: UA COLLECTION TYPE VOIDED
[2019-06-24 11:32] LABS: BASOPHILS # (AUTO) 0.1 X10'3 (0-0.2); BASOPHILS % (AUTO) 0.6 % (0-1); EOSINOPHILS # (AUTO) 0.3 X10'3 (0-0.9); EOSINOPHILS % (AUTO) 3.2 % (0-6); HEMOGLOBIN 14.2 g/dl (14.0-17.9); LYMPHOCYTES # (AUTO) 1.3 X10'3 (1.1-4.8); LYMPHOCYTES % (AUTO) 14.6 % (21-51); MEAN CORPUSCULAR HEMOGLOBIN 32.9 PG (27.0-31.0); MEAN CORPUSCULAR HGB CONC 33.7 g/dL (33.0-36.5); MEAN CORPUSCULAR VOLUME 97.4 FL (78-98); MEAN PLATELET VOLUME 9.7 FL (7.4-10.4); MONOCYTES # (AUTO) 0.7 X10'3 (0-0.9); MONOCYTES % (AUTO) 8.1 % (2-12); NEUTROPHILS # (AUTO) 6.5 X10'3 (1.8-7.7); NEUTROPHILS % (AUTO) 73.5 % (42-75); PLATELET COUNT 199 X10'3 (140-440); RED BLOOD COUNT 4.31 X10'6 (4.70-6.10); WHITE BLOOD COUNT 8.8 X10'3 (4.5-11.0)
[2019-06-24 11:47] LABS: ALANINE AMINOTRANSFERASE 50 U/L (12-78); ALBUMIN 3.7 G/DL (3.4-5.0); ALKALINE PHOSPHATASE 62 IU/L (46-116); ANION GAP 9 (8-16); ASPARTATE AMINO TRANSFERASE 28 U/L (10-37); BILIRUBIN,TOTAL 0.5 MG/DL (0.1-1.0); BLOOD UREA NITROGEN 18 MG/DL (7-18); BUN/CREATININE RATIO 16.1 (5.4-32.0); CALCIUM 8.8 MG/DL (8.5-10.1); CHLORIDE 105 MMOL/L (99-107); CREATININE 1.12 MG/DL (0.60-1.10); GLUCOSE 161 MG/DL (70-104); POTASSIUM 4.2 MMOL/L (3.5-5.1); SODIUM 139 MMOL/L (135-145); TOTAL CARBON DIOXIDE 24.8 MMOL/L (24-32); TOTAL PROTEIN 7.4 G/DL (6.4-8.2); eGFR 65 ML/MIN
--- NOTE | 2019-06-24 12:11 | NUR ---
NEUROLOGY EVALUATION SET UP WITH SPECIALISTS DESIGN COORDINATOR.
[2019-06-24] MEDS ORDERED: ISOS30TA6 PO (13:00)
[2019-06-24] MEDS ORDERED: APIX5TAB3 PO (13:00)
[2019-06-24] MEDS ORDERED: CARV6.253 PO (13:00)
[2019-06-24 13:19] LABS: C-REACTIVE PROTEIN 0.44 MG/DL (0.0-0.5)
[2019-06-24] MEDS ORDERED: magnesium hydroxide 30ml (MOM) UD suspension PO PRN (13:20)
[2019-06-24] MEDS ORDERED: acetaminophen 325mg tablet PO PRN (13:20)
[2019-06-24] MEDS ORDERED: morphine 2 MG/ML inj. syringe IV PRN ×2 (13:20)
[2019-06-24] MEDS ORDERED: ondansetron/PF 4mg/2ml inj IV PRN (13:20)
[2019-06-24] MEDS ORDERED: mag hydrox/Alum hydrox/simeth 30ml oral suspension PO PRN (13:20)
[2019-06-24] MEDS: normal saline 1000ml 1,000 ML IV SCH ×2 (14:23→21:01)
[2019-06-24 14:52] LABS: HEMOGLOBIN A1C 6.8 % (4.5-6.2)
[2019-06-24 15:30] VITALS: BP 179/94
--- NOTE | 2019-06-24 15:53 | NUR ---
pt arrived to rm 4017 from ER for Stroke Eval. Pt c/o lateral bilateral headache. Left eye droop noted, no other residual noted. Ambulates appropriately. Right shoulder weak d/t previous injury years ago, not related to this visit. Left LE chronic neuropathy noted. Pt oriented to room. Pt is now in MRI.
[2019-06-24] MEDS ORDERED: dextrose ORAL solution 15 GM/59 ML bottle PO PRN ×2 (16:40)
[2019-06-24] MEDS ORDERED: MESSAGE TO PHARMACY PO ONE (16:40)
[2019-06-24] MEDS ORDERED: glucagon, human recombinant 1mg kit SUBCUT PRN (16:40)
[2019-06-24] MEDS ORDERED: dextrose 50%-water 50ml dispensing syringe IV PRN ×2 (16:40)
[2019-06-24] MEDS ORDERED: insulin Lispro (HumaLOG) vial - multi-dose SQ SCH (16:40)
[2019-06-24] MEDS: HYDROcodone/acetaminophen 5mg/325mg tablet PO PRN ×2 (16:44→20:54)
[2019-06-24 18:00] VITALS: BP 135/87
--- NOTE | 2019-06-24 18:05 | NUR ---
Received report from Natalie CALDERON, assumed care of patient.
--- NOTE | 2019-06-24 18:05 | NUR ---
Problems reprioritized. Patient report given, questions answered & plan of care reviewed with YUMIKO Hung.
[2019-06-24] MEDS: apixaban 5mg tablet PO SCH (20:54)
[2019-06-24] MEDS ORDERED: insulin glargine (Lantus) pen - multi-dose SQ SCH (21:00)
[2019-06-24 22:00] VITALS: BP 160/67
--- NOTE | 2019-06-24 22:02 | NUR ---
Spoke with MD Peoples as pt still with complaints of headache. Received new orders to add a [place] 10-325 PO Q4h PRN for severe pain.
[2019-06-24] MEDS ORDERED: HYDROcodone/acetaminophen 10/325mg tab PO PRN (22:05)
[2019-06-25 02:00] VITALS: BP_SYST 161; BP_SYST 165; BP_SYST 175; BP_DIAS 75; BP_DIAS 85
[2019-06-25] MEDS: HYDROcodone/acetaminophen 5mg/325mg tablet PO PRN (02:21)
[2019-06-25 06:00] VITALS: BP 167/83
[2019-06-25 06:15] LABS: BASOPHILS # (AUTO) 0.1 X10'3 (0-0.2); BASOPHILS % (AUTO) 0.8 % (0-1); EOSINOPHILS # (AUTO) 0.3 X10'3 (0-0.9); EOSINOPHILS % (AUTO) 4.6 % (0-6); HEMATOCRIT 40.9 % (42.0-52.0); HEMOGLOBIN 13.9 g/dl (14.0-17.9); LYMPHOCYTES # (AUTO) 1.7 X10'3 (1.1-4.8); LYMPHOCYTES % (AUTO) 24.1 % (21-51); MEAN CORPUSCULAR HEMOGLOBIN 32.8 PG (27.0-31.0); MEAN CORPUSCULAR HGB CONC 33.9 g/dL (33.0-36.5); MEAN CORPUSCULAR VOLUME 96.7 FL (78-98); MEAN PLATELET VOLUME 9.6 FL (7.4-10.4); MONOCYTES # (AUTO) 0.7 X10'3 (0-0.9); MONOCYTES % (AUTO) 10.2 % (2-12); NEUTROPHILS # (AUTO) 4.2 X10'3 (1.8-7.7); NEUTROPHILS % (AUTO) 60.3 % (42-75); PLATELET COUNT 184 X10'3 (140-440); RED BLOOD COUNT 4.23 X10'6 (4.70-6.10); RED CELL DISTRIBUTION WIDTH 13.8 % (11.5-14.5)
[2019-06-25 06:20] LABS: ALBUMIN 3.4 G/DL (3.4-5.0); ANION GAP 11 (8-16); BLOOD UREA NITROGEN 15 MG/DL (7-18); CALCIUM 8.9 MG/DL (8.5-10.1); CHLORIDE 108 MMOL/L (99-107); CHOL/HDL RATIO 5.2 (0.00-4.99); CHOLESTEROL 230 MG/DL (0-200); GLUCOSE 140 MG/DL (70-104); HDL CHOLESTEROL 44 MG/DL (35-60); LDL CHOLESTEROL 157 MG/DL (50-100); POTASSIUM 4.2 MMOL/L (3.5-5.1); SODIUM 140 MMOL/L (135-145); TRIGLYCERIDES 149 MG/DL (20-135); eGFR 74 ML/MIN
--- NOTE | 2019-06-25 06:28 | NUR ---
Report given to Danica CALDERON.
--- NOTE | 2019-06-25 06:43 | NUR ---
Patient in room [facility]TH[facility] 4017. I have received report from Anabell Ruiz RN and had the opportunity to ask questions and assume patient care.
[2019-06-25] MEDS ORDERED: clopidogrel 75mg tablet PO SCH (08:00)
[2019-06-25] MEDS ORDERED: chlorthalidone 25mg tablet PO SCH ×2 (08:00)
[2019-06-25] MEDS ORDERED: isosorbide mononitrate 30mg tab.SR.24H PO SCH (08:00)
[2019-06-25] MEDS: apixaban 5mg tablet PO SCH (08:02)
[2019-06-25 10:00] VITALS: BP 146/68
--- NOTE | 2019-06-25 10:15 | NUR ---
DM Consult: Pt A1C <7 and not appropriate for DM ed at this time. Addendum: 06/25/19 at [address] Amended: Links added.
--- NOTE | 2019-06-25 11:40 | NUR ---
Reviewed discharge instructions with pt. Pt verbalized understanding. Pt is alert, oriented and in good spirits. Pt walked downstairs accompanied by his granddaughter who will be driving him home. All of pt's belongings were returned to pt.
== END 2019-06-25 11:40 | disposition home or self-care (01) | DRG 866 ==
LOC: ER 10:25 → ORTHO 4S 15:07 → CMPBEDREQ 19:43
PROVIDERS: ADMIT Internal Medicine; ATTEND Internal Medicine
DX: B34.9 Viral infection, unspecified (principal); I65.22 Occlusion and stenosis of left carotid artery; E11.9 Type 2 diabetes mellitus without complications; E78.00 Pure hypercholesterolemia, unspecified; F12.90 Cannabis use, unspecified, uncomplicated; H02.402 Unspecified ptosis of left eyelid; I10 Essential (primary) hypertension; I25.10 Atherosclerotic heart disease of native coronary artery without angina pectoris; I48.0 Paroxysmal atrial fibrillation; Z79.01 Long term (current) use of anticoagulants; Z79.02 Long term (current) use of antithrombotics/antiplatelets; Z95.1 Presence of aortocoronary bypass graft; Z91.041 Radiographic dye allergy status; Z88.2 Allergy status to sulfonamides; Z91.018 Allergy to other foods; Z86.718 Personal history of other venous thrombosis and embolism; Z82.5 Family history of asthma and other chronic lower respiratory diseases; Z84.89 Family history of other specified conditions
CPT/HCPCS: 36415; 70450; 70544; 70551; 71045; 80048; 80053; 80061; 81003; 82948; 83036; 85025; 85610; 85651; 86140; 87081; 92508; 92616; 93005; 93306; 96360; 99285; G0378; J1815; J7030

== ENCOUNTER 2021-08-07 18:52 | Emergency (ER) | payer BC, MEDICAID ==
[~2021-08-07] VITALS: Ht 177.8 cm; Wt 101.0 kg
[~2021-08-07 18:52] MED LIST changes: -AMLO10TA PO; +AMLO2.5T2 PO; +APIX5TAB3 PO; -ASPI81TA44 PO; +CARV-50 PO; -CARV6.253 PO; -CHLO25TA2 PO; -CLOP75TA15 PO; +EVOL140P3 SUBCUT; -HEPA500017 SQ; -HYDR-3972 PO; -IBUP-1985 PO; +LISI20TA28 PO; -LISI40TA4 PO; +METF-438 PO; -METH4TAB3 PO; -PANT-47 PO; +TRAM50TA2 PO
[2021-08-07] MEDS ORDERED: normal saline 1000ml 1,000 ML IV ONE (19:15)
[2021-08-07 19:50] LABS: BASOPHILS # (AUTO) 0.1 X10'3 (0-0.2); EOSINOPHILS # (AUTO) 0.2 X10'3 (0-0.9); WHITE BLOOD COUNT 9.5 X10'3 (4.5-11.0)
[2021-08-07 19:52] LABS: BASOPHILS % (AUTO) 1.1 % (0-1); EOSINOPHILS % (AUTO) 2.2 % (0-6); HEMATOCRIT 37.5 % (42.0-52.0); HEMOGLOBIN 12.9 g/dl (14.0-17.9); LYMPHOCYTES % (AUTO) 10.5 % (21-51); MEAN CORPUSCULAR HEMOGLOBIN 31.9 PG (27.0-31.0); MEAN CORPUSCULAR HGB CONC 34.3 g/dL (33.0-36.5); MEAN CORPUSCULAR VOLUME 93.1 FL (78-98); MEAN PLATELET VOLUME 8.9 FL (7.4-10.4); MONOCYTES % (AUTO) 10.7 % (2-12); NEUTROPHILS # (AUTO) 7.2 X10'3 (1.8-7.7); NEUTROPHILS % (AUTO) 75.5 % (42-75); PLATELET COUNT 349 X10'3 (140-440); RED BLOOD COUNT 4.02 X10'6 (4.70-6.10); RED CELL DISTRIBUTION WIDTH 13.5 % (11.5-14.5)
[2021-08-07 20:02] LABS: PARTIAL THROMBOPLASTIN TIME 29 SECONDS (22-32)
[2021-08-07] MEDS ORDERED: morphine 4 MG/ML inj SYRINge IM ONE (20:05)
[2021-08-07 20:17] LABS: ALANINE AMINOTRANSFERASE 81 U/L (12-78); ALBUMIN 2.2 G/DL (3.4-5.0); ALBUMIN/GLOBULIN RATIO 0.5 (1.1-1.5); ALKALINE PHOSPHATASE 105 IU/L (46-116); ANION GAP 11 (8-16); ASPARTATE AMINO TRANSFERASE 58 U/L (10-37); BILIRUBIN,TOTAL 0.5 MG/DL (0.1-1.0); BLOOD UREA NITROGEN 24 MG/DL (7-18); BUN/CREATININE RATIO 22.4 (5.4-32.0); CALCIUM 8.7 MG/DL (8.5-10.1); CHLORIDE 104 MMOL/L (99-107); CREATININE 1.07 MG/DL (0.60-1.10); GLUCOSE 187 MG/DL (70-104); POTASSIUM 3.9 MMOL/L (3.5-5.1); SODIUM 140 MMOL/L (135-145); TOTAL CARBON DIOXIDE 24.9 MMOL/L (24-32); TOTAL PROTEIN 6.7 G/DL (6.4-8.2); eGFR 68 ML/MIN
[2021-08-07 20:23] LABS: MAGNESIUM 2.2 MG/DL (1.5-2.4)
[2021-08-07] MEDS ORDERED: iohexol 350MG/ML 100ml bottle IV ONE (20:25)
[2021-08-07] MEDS ORDERED: normal saline 1000ML IV soln IVB ONE (20:25)
[2021-08-07] MEDS ORDERED: iohexol 350 MG/ML 50ML vial IV ONE (20:25)
[2021-08-07] MEDS ORDERED: heparin 10,000 units/1 ML INJ IV ONE ×2 (20:40→21:05)
[2021-08-07] MEDS ORDERED: heparin 25,000 UNIT/250ml bag 250 ML IV SCH ×2 (20:40→21:10)
[2021-08-07] MEDS ORDERED: heparin 10,000 units/1 ML INJ IV PRN ×2 (20:50→21:10)
--- NOTE | 2021-08-07 21:08 | NUR ---
PER MD; HEPARIN SHOULD BE INITIATED BY DVT PROTOCOL INSTEAD OF CARDIAC DUE TO OCCLOSION OF VESSEL; PHARMACY NOTIFIED; ORDERS PLACED
--- NOTE | 2021-08-07 21:50 | NUR ---
WE ARE CURRENTLY WAITING ON [facility] FOR ACCEPTING PHYSICIAN; HEPARIN CONTINUES UNDER DVT PROTOCOL; PT HAS BEEN MEDICATED FOR PAIN AND HAS STABLE VS; [facility] HAS CONTACTED FOR ACCEPTING FACILITY X2
--- NOTE | 2021-08-07 23:14 | NUR ---
REPORT GIVEN TO [facility] AND GIVEN TO [facility] AND CLEARED FOR TRANSPORT FOR 2WEST BED1. PT VSS UPON DC FROM [place] N[place] ON 2LNC AND IV'SINTACT AND HEPARIN INFUSING. NO CHANGE IN PT CONDITION AT THIS TIME.
[2021-08-07 23:15] VITALS: BP 153/67
== END 2021-08-07 23:23 | disposition short-term general hospital (02) ==
LOC: ER 18:52
DX: U07.1 COVID-19 (principal); I77.9 Disorder of arteries and arterioles, unspecified; E11.9 Type 2 diabetes mellitus without complications; I25.10 Atherosclerotic heart disease of native coronary artery without angina pectoris; I73.9 Peripheral vascular disease, unspecified; I48.91 Unspecified atrial fibrillation; E78.00 Pure hypercholesterolemia, unspecified; I10 Essential (primary) hypertension; R25.2 Cramp and spasm; Z79.01 Long term (current) use of anticoagulants; Z91.048 Other nonmedicinal substance allergy status; Z79.899 Other long term (current) drug therapy; Z95.5 Presence of coronary angioplasty implant and graft
CPT/HCPCS: 36415; 80053; 83735; 83880; 84484; 85025; 85610; 85730; 87635; 93005; 93930; 96361; 96365; 96366; 96372; 99285; C9803; J1644; J2270; J7030; Q9967

== ENCOUNTER 2022-06-05 01:31 | Emergency (ER) | payer BC, MEDICAID ==
[~2022-06-05] VITALS: Ht 170.2 cm; Wt 73.0 kg
[2022-06-05] MEDS ORDERED: ROSU40TA22 PO (01:41)
[2022-06-05] MEDS ORDERED: RIVA20TA PO ×2 (01:41→12:15)
[2022-06-05] MEDS ORDERED: heparin 10,000 units/1 ML INJ IV ONE (02:25)
[2022-06-05] MEDS ORDERED: heparin 10,000 units/1 ML INJ IV PRN (02:25)
[2022-06-05] MEDS ORDERED: HEPARIN SOD,PORK IN 0.45% NACL 250 ML IV SCH (02:25)
[2022-06-05] MEDS ORDERED: normal saline 1000ml 1,000 ML IV ONE (02:30)
[2022-06-05 02:50] LABS: BASOPHILS # (AUTO) 0.1 X10'3 (0-0.2); BASOPHILS % (AUTO) 1.1 % (0-1); EOSINOPHILS # (AUTO) 0.4 X10'3 (0-0.9); EOSINOPHILS % (AUTO) 4.2 % (0-6); HEMATOCRIT 38.3 % (42.0-52.0); HEMOGLOBIN 12.7 g/dl (14.0-17.9); LYMPHOCYTES # (AUTO) 2.4 X10'3 (1.1-4.8); LYMPHOCYTES % (AUTO) 25.1 % (21-51); MEAN CORPUSCULAR HEMOGLOBIN 30.4 PG (27.0-31.0); MEAN CORPUSCULAR HGB CONC 33.1 g/dL (33.0-36.5); MEAN CORPUSCULAR VOLUME 91.8 FL (78-98); MEAN PLATELET VOLUME 9.8 FL (7.4-10.4); MONOCYTES # (AUTO) 1.1 X10'3 (0-0.9); NEUTROPHILS # (AUTO) 5.4 X10'3 (1.8-7.7); NEUTROPHILS % (AUTO) 57.6 % (42-75); PLATELET COUNT 223 X10'3 (140-440); RED BLOOD COUNT 4.17 X10'6 (4.70-6.10); RED CELL DISTRIBUTION WIDTH 14.9 % (11.5-14.5); WHITE BLOOD COUNT 9.4 X10'3 (4.5-11.0)
[2022-06-05] MEDS ORDERED: AMLO10TA PO (02:58)
[2022-06-05] MEDS ORDERED: CARV3.122 PO (02:58)
[2022-06-05] MEDS ORDERED: METF-436 PO (02:58)
[2022-06-05] MEDS ORDERED: LISI40TA13 PO (03:05)
[2022-06-05 03:10] LABS: ALANINE AMINOTRANSFERASE 97 U/L (12-78); ALBUMIN 3.6 G/DL (3.4-5.0); ALKALINE PHOSPHATASE 79 IU/L (46-116); ANION GAP 13 (8-16); ASPARTATE AMINO TRANSFERASE 62 U/L (10-37); BILIRUBIN,TOTAL 0.4 MG/DL (0.1-1.0); BLOOD UREA NITROGEN 35 MG/DL (7-18); BUN/CREATININE RATIO 33.7 (5.4-32.0); CHLORIDE 103 MMOL/L (99-107); CREATININE 1.04 MG/DL (0.60-1.10); GLUCOSE 99 MG/DL (70-104); POTASSIUM 4.3 MMOL/L (3.5-5.1); SODIUM 138 MMOL/L (135-145); TOTAL PROTEIN 7.3 G/DL (6.4-8.2); eGFR 70 ML/MIN
[2022-06-05 03:19] LABS: CREATINE KINASE 39 U/L (39-308)
--- NOTE | 2022-06-05 06:19 | NUR ---
Vascular at bedside.
[2022-06-05] MEDS ORDERED: morphine 2 MG/ML inj. syringe IV PRN (07:25)
--- NOTE | 2022-06-05 07:25 | NUR ---
Patient had 1 episode of diarrhea stool.via bedpan. Patient cleaned and changed. clinical editor in place.
[2022-06-05 09:12] LABS: APTT 36 SECONDS (22-32)
[2022-06-05 12:05] VITALS: BP 141/69
[2022-06-05] MEDS ORDERED: GABA300C PO (12:15)
[2022-06-05] MEDS ORDERED: HYDR-3965 PO (12:15)
== END 2022-06-05 13:00 | disposition home or self-care (01) ==
LOC: ER 01:32
DX: M79.605 Pain in left leg (principal); M79.661 Pain in right lower leg; R22.41 Localized swelling, mass and lump, right lower limb; R25.2 Cramp and spasm; I73.9 Peripheral vascular disease, unspecified; I48.91 Unspecified atrial fibrillation; E78.00 Pure hypercholesterolemia, unspecified; I10 Essential (primary) hypertension; E11.9 Type 2 diabetes mellitus without complications; Z86.718 Personal history of other venous thrombosis and embolism; Z95.5 Presence of coronary angioplasty implant and graft; Z79.899 Other long term (current) drug therapy; Z88.2 Allergy status to sulfonamides; Z91.048 Other nonmedicinal substance allergy status; Z91.041 Radiographic dye allergy status; Z89.612 Acquired absence of left leg above knee; Z91.011 Allergy to milk products
CPT/HCPCS: 36415; 73706; 80053; 82550; 83605; 83880; 85025; 85610; 85730; 93005; 93922; 93971; 96361; 96374; 96375; 99285; J1644; J2270; J3490; J7030

== ENCOUNTER 2022-06-09 11:38 | Emergency (ER) | payer BC, MEDICAID ==
[~2022-06-09] VITALS: Ht 172.7 cm; Wt 73.2 kg
[~2022-06-09 11:38] MED LIST changes: +AMLO10TA PO; -AMLO2.5T2 PO; -APIX5TAB3 PO; -CARV-50 PO; +CARV3.122 PO; -EVOL140P3 SUBCUT; +GABA300C PO; +HYDR-3965 PO; -LISI20TA28 PO; +LISI40TA13 PO; +METF-436 PO; -METF-438 PO; +RIVA20TA PO; +ROSU40TA22 PO; -TRAM50TA2 PO
[2022-06-09] MEDS ORDERED: HYDROcodone/acetaminophen 10/325mg tab PO ONE (13:50)
[2022-06-09 14:17] LABS: BASOPHILS # (AUTO) 0.1 X10'3 (0-0.2); BASOPHILS % (AUTO) 0.7 % (0-1); EOSINOPHILS # (AUTO) 0.5 X10'3 (0-0.9); HEMATOCRIT 37.1 % (42.0-52.0); HEMOGLOBIN 12.2 g/dl (14.0-17.9); LYMPHOCYTES # (AUTO) 2.4 X10'3 (1.1-4.8); LYMPHOCYTES % (AUTO) 25.3 % (21-51); MEAN CORPUSCULAR HEMOGLOBIN 30.3 PG (27.0-31.0); MEAN CORPUSCULAR HGB CONC 32.9 g/dL (33.0-36.5); MEAN CORPUSCULAR VOLUME 91.9 FL (78-98); MEAN PLATELET VOLUME 9.8 FL (7.4-10.4); MONOCYTES % (AUTO) 10.9 % (2-12); NEUTROPHILS # (AUTO) 5.5 X10'3 (1.8-7.7); NEUTROPHILS % (AUTO) 58.1 % (42-75); PLATELET COUNT 191 X10'3 (140-440); RED BLOOD COUNT 4.03 X10'6 (4.70-6.10); RED CELL DISTRIBUTION WIDTH 15.4 % (11.5-14.5); WHITE BLOOD COUNT 9.5 X10'3 (4.5-11.0)
[2022-06-09 14:25] LABS: APTT 33 SECONDS (22-32)
[2022-06-09 14:27] LABS: ALANINE AMINOTRANSFERASE 85 U/L (12-78); ALBUMIN 3.3 G/DL (3.4-5.0); ALBUMIN/GLOBULIN RATIO 0.9 (1.1-1.5); ALKALINE PHOSPHATASE 80 IU/L (46-116); ANION GAP 7 (8-16); ASPARTATE AMINO TRANSFERASE 45 U/L (10-37); BILIRUBIN,TOTAL 0.3 MG/DL (0.1-1.0); BLOOD UREA NITROGEN 31 MG/DL (7-18); BUN/CREATININE RATIO 29.8 (5.4-32.0); CALCIUM 8.7 MG/DL (8.5-10.1); CHLORIDE 106 MMOL/L (99-107); CREATININE 1.04 MG/DL (0.60-1.10); GLUCOSE 122 MG/DL (70-104); POTASSIUM 5.3 MMOL/L (3.5-5.1); SODIUM 140 MMOL/L (135-145); TOTAL CARBON DIOXIDE 27.5 MMOL/L (24-32); eGFR 70 ML/MIN
--- NOTE | 2022-06-09 15:54 | NUR ---
Unable to find Right DP with doppler. PT is weak, but present - marked on skin.
--- NOTE | 2022-06-09 17:35 | NUR ---
DP pulse of Right foot located with doppler. Marked. Foot has been cool to touch.
[2022-06-09] MEDS ORDERED: HYDR-3972 PO (18:02)
[2022-06-09 18:12] VITALS: BP 150/65
== END 2022-06-09 18:29 | disposition home or self-care (01) ==
LOC: ER 11:38
DX: I73.9 Peripheral vascular disease, unspecified (principal); M79.671 Pain in right foot; I48.91 Unspecified atrial fibrillation; I25.10 Atherosclerotic heart disease of native coronary artery without angina pectoris; E78.00 Pure hypercholesterolemia, unspecified; I10 Essential (primary) hypertension; E11.9 Type 2 diabetes mellitus without complications; Z86.718 Personal history of other venous thrombosis and embolism; Z95.5 Presence of coronary angioplasty implant and graft; Z72.89 Other problems related to lifestyle; Z91.048 Other nonmedicinal substance allergy status; Z88.2 Allergy status to sulfonamides; Z88.8 Allergy status to other drugs, medicaments and biological substances; Z91.041 Radiographic dye allergy status; Z91.011 Allergy to milk products; Z79.899 Other long term (current) drug therapy
CPT/HCPCS: 36415; 80053; 85025; 85610; 85730; 99285

== ENCOUNTER 2023-02-08 12:18 | Emergency (ER) | payer BC, MEDICAID ==
[~2023-02-08] VITALS: Ht 121.9 cm; Wt 72.7 kg
[~2023-02-08 12:18] MED LIST changes: -HYDR-3965 PO
[2023-02-08] MEDS ORDERED: normal saline 1000ML IV soln IVB ONE ×2 (12:55→15:55)
[2023-02-08] MEDS ORDERED: ondansetron/PF 4mg/2ml inj IV ONE (12:55)
[2023-02-08] MEDS ORDERED: metoclopramide 5 mg/ml inj IV ONE (12:55)
[2023-02-08 13:24] LABS: BASOPHILS % (AUTO) 0.4 % (0-1); EOSINOPHILS # (AUTO) 0.2 X10'3 (0-0.9); EOSINOPHILS % (AUTO) 2.2 % (0-6); HEMOGLOBIN 12.1 g/dl (14.0-17.9); LYMPHOCYTES # (AUTO) 2.1 X10'3 (1.1-4.8); LYMPHOCYTES % (AUTO) 20.6 % (21-51); MEAN CORPUSCULAR HEMOGLOBIN 28.6 PG (27.0-31.0); MEAN CORPUSCULAR HGB CONC 32.6 g/dL (33.0-36.5); MEAN CORPUSCULAR VOLUME 87.7 FL (78-98); MEAN PLATELET VOLUME 9.4 FL (7.4-10.4); MONOCYTES # (AUTO) 0.8 X10'3 (0-0.9); MONOCYTES % (AUTO) 8.4 % (2-12); NEUTROPHILS # (AUTO) 6.8 X10'3 (1.8-7.7); NEUTROPHILS % (AUTO) 68.4 % (42-75); PLATELET COUNT 234 X10'3 (140-440); RED BLOOD COUNT 4.22 X10'6 (4.70-6.10); RED CELL DISTRIBUTION WIDTH 17.2 % (11.5-14.5)
[2023-02-08 13:37] LABS: ALANINE AMINOTRANSFERASE 109 U/L (12-78); ALBUMIN 3.3 G/DL (3.4-5.0); ALBUMIN/GLOBULIN RATIO 0.8 (1.1-1.5); ALKALINE PHOSPHATASE 92 IU/L (46-116); ANION GAP 9 (8-16); ASPARTATE AMINO TRANSFERASE 64 U/L (10-37); BILIRUBIN,TOTAL 0.4 MG/DL (0.1-1.0); BLOOD UREA NITROGEN 15 MG/DL (7-18); BUN/CREATININE RATIO 22.1 (10.0-20.0); CALCIUM 9.2 MG/DL (8.5-10.1); CHLORIDE 104 MMOL/L (99-107); CREATININE 0.68 MG/DL (0.60-1.10); GLUCOSE 125 MG/DL (70-104); LIPASE 62 U/L (73-393); POTASSIUM 4.1 MMOL/L (3.5-5.1); SODIUM 139 MMOL/L (135-145); TOTAL CARBON DIOXIDE 26.1 MMOL/L (24-32); TOTAL PROTEIN 7.4 G/DL (6.4-8.2); eGFR > 90 ML/MIN
--- NOTE | 2023-02-08 13:45 | NUR ---
pt back from CT - IV fluids infusing.
--- NOTE | 2023-02-08 13:54 | NUR ---
UA COLLECTED AND SENT TO LAB. - PT STILL REPORTING NAUSEA DESPITE RECEIVING ZOFRAN AND REGLAN. WILL NOTIFY
[2023-02-08 14:00] LABS: CLARITY,URINE CLEAR (Clear); GLUCOSE, URINE NEGATIVE (Neg); KETONES,URINE TRACE mg/dl (Neg); LEUKOCYTE ESTERASE ,URINE NEGATIVE (Neg); NITRITES, URINE NEGATIVE (Neg); OCCULT BLOOD,URINE TRACE-INTACT (Neg); PH,URINE 6.5 (4.8-8.0); PROTEIN,URINE TRACE mg/dl (Neg); UROBILINOGEN,URINE 0.2 E.U/dL (0.2-1.0)
[2023-02-08 14:01] LABS: COLOR,URINE STRAW (Yellow); UA COLLECTION TYPE VOIDED
[2023-02-08 14:05] LABS: SQUAMOUS EPITHELIAL CELL,UR FEW /LPF (FEW)
[2023-02-08 14:06] LABS: BACTERIA,URINE FEW /HPF (Neg); RBC,URINE 0-2 /HPF (0-2); WBC,URINE 0-4 /HPF (0-4)
[2023-02-08] MEDS ORDERED: dexamethasone 4mg/ml inj IV ONE (14:10)
[2023-02-08] MEDS ORDERED: haloperidol lactate 5mg/ml inj IM ONE (15:55)
--- NOTE | 2023-02-08 17:46 | NUR ---
PER DAR GUTIÉRREZ HE WILL D/C PT WITH RX FOR NAUSEA. PT STATING THAT HIS RIDE WILL TAKE ANOTHER 45 MINS. CHARGE AND DAR NOTIFIED.
[2023-02-08] MEDS ORDERED: ONDA4TAB12 PO (17:50)
[2023-02-08] MEDS ORDERED: proCHLORperazine 10 MG/2 ml inj IV ONE (17:50)
[2023-02-08] MEDS ORDERED: dicyclomine 10 MG capsule PO ONE (17:50)
[2023-02-08] MEDS ORDERED: famotidine/PF 10 mg/ml inj IV ONE (17:50)
[2023-02-08 18:19] VITALS: BP 171/84
== END 2023-02-08 19:04 | disposition home or self-care (01) ==
LOC: ER 12:19
DX: R11.2 Nausea with vomiting, unspecified (principal); E78.00 Pure hypercholesterolemia, unspecified; I11.9 Hypertensive heart disease without heart failure; E11.9 Type 2 diabetes mellitus without complications; Z88.8 Allergy status to other drugs, medicaments and biological substances; Z88.2 Allergy status to sulfonamides; Z79.899 Other long term (current) drug therapy; Z91.011 Allergy to milk products
CPT/HCPCS: 36415; 74176; 80053; 81001; 83690; 85025; 96361; 96372; 96374; 96375; 99285; J0780; J1100; J1630; J2405; J2765; J3490; J7030

== ENCOUNTER 2023-05-31 11:24 | Emergency (ER) | payer BC, MEDICAID ==
[~2023-05-31] VITALS: Ht 172.7 cm; Wt 75.0 kg
[~2023-05-31 11:24] MED LIST changes: +ONDA4TAB12 PO
[2023-05-31 12:01] LABS: BASOPHILS # (AUTO) 0.1 X10'3 (0-0.2); BASOPHILS % (AUTO) 1.1 % (0-1); EOSINOPHILS # (AUTO) 0.3 X10'3 (0-0.9); EOSINOPHILS % (AUTO) 2.4 % (0-6); HEMATOCRIT 38.1 % (42.0-52.0); HEMOGLOBIN 12.7 g/dl (14.0-17.9); LYMPHOCYTES # (AUTO) 2.8 X10'3 (1.1-4.8); LYMPHOCYTES % (AUTO) 24.2 % (21-51); MEAN CORPUSCULAR HEMOGLOBIN 31.6 PG (27.0-31.0); MEAN CORPUSCULAR HGB CONC 33.2 g/dL (33.0-36.5); MEAN CORPUSCULAR VOLUME 95.1 FL (78-98); MONOCYTES # (AUTO) 0.9 X10'3 (0-0.9); MONOCYTES % (AUTO) 7.5 % (2-12); NEUTROPHILS # (AUTO) 7.5 X10'3 (1.8-7.7); NEUTROPHILS % (AUTO) 64.8 % (42-75); PLATELET COUNT 205 X10'3 (140-440); RED BLOOD COUNT 4.01 X10'6 (4.70-6.10); RED CELL DISTRIBUTION WIDTH 15.2 % (11.5-14.5); WHITE BLOOD COUNT 11.5 X10'3 (4.5-11.0)
[2023-05-31] MEDS ORDERED: oxyCODONE/APAP 10/325mg tablet PO ONE (12:10)
[2023-05-31] MEDS ORDERED: furosemide 20MG tablet PO ONE (12:10)
[2023-05-31 12:13] LABS: ALANINE AMINOTRANSFERASE 96 U/L (12-78); ALBUMIN 3.5 G/DL (3.4-5.0); ALBUMIN/GLOBULIN RATIO 0.9 (1.1-1.5); ALKALINE PHOSPHATASE 86 IU/L (46-116); ANION GAP 11 (8-16); ASPARTATE AMINO TRANSFERASE 101 U/L (10-37); BILIRUBIN,TOTAL 0.4 MG/DL (0.1-1.0); BLOOD UREA NITROGEN 21 MG/DL (7-18); BUN/CREATININE RATIO 21.2 (10.0-20.0); CHLORIDE 104 MMOL/L (99-107); CREATININE 0.99 MG/DL (0.60-1.10); GLUCOSE 109 MG/DL (70-104); POTASSIUM 4.3 MMOL/L (3.5-5.1); SODIUM 135 MMOL/L (135-145); TOTAL CARBON DIOXIDE 20.1 MMOL/L (24-32); TOTAL PROTEIN 7.2 G/DL (6.4-8.2); eGFR 74 ML/MIN
[2023-05-31] MEDS ORDERED: OXYC-150 PO (12:49)
[2023-05-31 13:03] VITALS: BP 158/68; PULSE 88; RESP 16; O2SAT 98
[2023-05-31] MEDS ORDERED: OXYC1TAB17 PO (16:32)
[2023-05-31] MEDS ORDERED: OXYC-481 PO (18:36)
== END 2023-05-31 13:05 | disposition home or self-care (01) ==
LOC: ER 11:24
DX: I73.9 Peripheral vascular disease, unspecified (principal); R60.0 Localized edema; I11.0 Hypertensive heart disease with heart failure; E11.9 Type 2 diabetes mellitus without complications; Z88.5 Allergy status to narcotic agent; Z88.2 Allergy status to sulfonamides; Z79.899 Other long term (current) drug therapy; Z91.040 Latex allergy status
CPT/HCPCS: 36415; 80053; 83880; 84484; 85025; 85610; 93005; 99284

== ENCOUNTER 2024-06-18 08:54 | Outpatient (CLI) | payer BC, MEDICAID ==
[~2024-06-18 08:54] MED LIST changes: +ONDA-243 PO; -ONDA4TAB12 PO; -ROSU40TA22 PO; +ROSU40TA71 PO; +iohexol 350MG/ML 100ml bottle IV ONE
[2024-06-18 09:47] LABS: ALBUMIN 3.4 G/DL (3.4-5.0); ANION GAP 8 (8-16); BLOOD UREA NITROGEN 22 MG/DL (7-18); BUN/CREATININE RATIO 19.6 (10.0-20.0); CALCIUM 8.8 MG/DL (8.5-10.1); CHLORIDE 105 MMOL/L (99-107); CREATININE 1.12 MG/DL (0.60-1.10); GLUCOSE 163 MG/DL (70-104); POTASSIUM 4.5 MMOL/L (3.5-5.1); SODIUM 139 MMOL/L (135-145); TOTAL CARBON DIOXIDE 25.8 MMOL/L (24-32); eGFR 64 ML/MIN
== END 2024-06-18 23:59 | disposition home or self-care (01) ==
LOC: RAD 08:54
PROVIDERS: ATTEND Internal Medicine Interventional Cardiology
DX: I65.23 Occlusion and stenosis of bilateral carotid arteries (principal); E04.1 Nontoxic single thyroid nodule
CPT/HCPCS: 36415; 70498; 80048; Q9967

== ENCOUNTER 2025-01-13 11:54 | Emergency (ER) | payer BC, MEDICAID ==
[~2025-01-13] VITALS: Ht 121.9 cm; Wt 97.0 kg
[~2025-01-13 11:54] MED LIST changes: -ROSU40TA71 PO; +ROSU40TA89 PO; -iohexol 350MG/ML 100ml bottle IV ONE
[2025-01-13 14:11] LABS: BASOPHILS # (AUTO) 0.1 X10'3 (0-0.2); BASOPHILS % (AUTO) 0.5 % (0-1); EOSINOPHILS # (AUTO) 0.4 X10'3 (0-0.9); EOSINOPHILS % (AUTO) 3.3 % (0-6); HEMATOCRIT 38.3 % (42.0-52.0); HEMOGLOBIN 12.8 g/dl (14.0-17.9); LYMPHOCYTES # (AUTO) 2.6 X10'3 (1.1-4.8); MEAN CORPUSCULAR HEMOGLOBIN 30.2 PG (27.0-31.0); MEAN CORPUSCULAR HGB CONC 33.3 g/dL (33.0-36.5); MEAN CORPUSCULAR VOLUME 90.6 FL (78-98); MEAN PLATELET VOLUME 11.2 FL (7.4-10.4); MONOCYTES # (AUTO) 0.9 X10'3 (0-0.9); MONOCYTES % (AUTO) 8.5 % (2-12); NEUTROPHILS # (AUTO) 6.9 X10'3 (1.8-7.7); NEUTROPHILS % (AUTO) 63.7 % (42-75); PLATELET COUNT 196 X10'3 (140-440); RED BLOOD COUNT 4.23 X10'6 (4.70-6.10); RED CELL DISTRIBUTION WIDTH 14.2 % (11.5-14.5); WHITE BLOOD COUNT 10.9 X10'3 (4.5-11.0)
[2025-01-13 14:20] LABS: ALBUMIN 3.4 G/DL (3.4-5.0); ANION GAP 9 (8-16); BLOOD UREA NITROGEN 23 MG/DL (7-18); BUN/CREATININE RATIO 16.2 (10.0-20.0); C-REACTIVE PROTEIN 0.37 MG/DL (0.0-0.5); CALCIUM 8.8 MG/DL (8.5-10.1); CHLORIDE 105 MMOL/L (99-107); CREATININE 1.42 MG/DL (0.60-1.10); GLUCOSE 190 MG/DL (70-104); POTASSIUM 4.8 MMOL/L (3.5-5.1); SODIUM 141 MMOL/L (135-145); TOTAL CARBON DIOXIDE 26.7 MMOL/L (24-32); eCRCL 14 ML/MIN; eGFR 49 ML/MIN
[2025-01-13 14:55] LABS: LARGE PLATELETS FEW; PLATELET ESTIMATE NORMAL
[2025-01-13] MEDS ORDERED: CEPH500C2 PO (15:26)
[2025-01-13] MEDS ORDERED: DOXY-460 PO (15:27)
[2025-01-13] MEDS: ceFAZolin 1gm IM kit IM ONE (15:43)
[2025-01-13 16:29] VITALS: BP 150/72; PULSE 52; RESP 16; TEMP 98.6; O2SAT 97
== END 2025-01-13 16:31 | disposition home or self-care (01) ==
LOC: ER 11:55
DX: L03.115 Cellulitis of right lower limb (principal); E11.51 Type 2 diabetes mellitus with diabetic peripheral angiopathy without gangrene; E78.00 Pure hypercholesterolemia, unspecified; I10 Essential (primary) hypertension; I25.10 Atherosclerotic heart disease of native coronary artery without angina pectoris; I48.91 Unspecified atrial fibrillation; J44.9 Chronic obstructive pulmonary disease, unspecified; Z88.2 Allergy status to sulfonamides; Z91.041 Radiographic dye allergy status; Z95.1 Presence of aortocoronary bypass graft; Z89.611 Acquired absence of right leg above knee; Z89.612 Acquired absence of left leg above knee; Z88.8 Allergy status to other drugs, medicaments and biological substances
CPT/HCPCS: 36415; 73560; 80048; 83605; 85008; 85025; 85651; 86140; 87040; 93971; 96372; 99285; J0690

== ENCOUNTER 2025-02-08 14:37 | Inpatient (IN) | payer BC, MEDICAID ==
[~2025-02-08] VITALS: Ht 121.9 cm; Wt 103.5 kg
[~2025-02-08 14:37] MED LIST changes: +CARV-50 PO; -CARV3.122 PO; +CLOT30CR19 TOP; +FURO20TA4 PO; +GABA-535 PO; -GABA300C PO
[2025-02-08 16:47] LABS: BILIRUBIN,URINE NEGATIVE (Neg); CLARITY,URINE CLEAR (Clear); COLOR,URINE YELLOW (Yellow); GLUCOSE, URINE NEGATIVE (Neg); KETONES,URINE NEGATIVE (Neg); LEUKOCYTE ESTERASE ,URINE NEGATIVE (Neg); NITRITES, URINE NEGATIVE (Neg); OCCULT BLOOD,URINE NEGATIVE (Neg); PH,URINE 5.5 (4.8-8.0); PROTEIN,URINE NEGATIVE (Neg); UROBILINOGEN,URINE 0.2 E.U/dL (0.2-1.0)
[2025-02-08 16:52] LABS: UA COLLECTION TYPE CLN CATCH MIDSTREAM
[2025-02-08] MEDS: clindamycin 300mg/D5W 50mL 50 ML IV ONE (17:13)
[2025-02-08] MEDS: ondansetron/PF 4mg/2ml inj IV ONE (17:15)
[2025-02-08] MEDS: morphine 4 MG/ML inj SYRINge IV ONE (17:17)
[2025-02-08 17:54] LABS: BASOPHILS # (AUTO) 0.1 X10'3 (0-0.2); BASOPHILS % (AUTO) 0.8 % (0-1); EOSINOPHILS # (AUTO) 0.4 X10'3 (0-0.9); EOSINOPHILS % (AUTO) 3.7 % (0-6); HEMATOCRIT 37.1 % (42.0-52.0); HEMOGLOBIN 12.3 g/dl (14.0-17.9); LYMPHOCYTES # (AUTO) 2.1 X10'3 (1.1-4.8); LYMPHOCYTES % (AUTO) 18.5 % (21-51); MEAN CORPUSCULAR HEMOGLOBIN 29.7 PG (27.0-31.0); MEAN CORPUSCULAR VOLUME 89.8 FL (78-98); MEAN PLATELET VOLUME 11.6 FL (7.4-10.4); MONOCYTES # (AUTO) 1.2 X10'3 (0-0.9); MONOCYTES % (AUTO) 10.2 % (2-12); NEUTROPHILS # (AUTO) 7.7 X10'3 (1.8-7.7); NEUTROPHILS % (AUTO) 66.8 % (42-75); PLATELET COUNT 199 X10'3 (140-440); RED BLOOD COUNT 4.13 X10'6 (4.70-6.10); RED CELL DISTRIBUTION WIDTH 14.6 % (11.5-14.5); WHITE BLOOD COUNT 11.5 X10'3 (4.5-11.0)
[2025-02-08 18:04] LABS: APTT 45 SECONDS (22-32); INR 1.7 INR; PROTHROMBIN TIME 16.7 SECONDS (9.0-12.0)
[2025-02-08] MEDS: CefTRIAXone/D5W-Rocephin 1gm 50 ML IV ONE (18:05)
[2025-02-08 18:16] LABS: ALANINE AMINOTRANSFERASE 50 U/L (12-78); ALBUMIN 3.3 G/DL (3.4-5.0); ALBUMIN/GLOBULIN RATIO 0.9 (1.1-1.5); ALKALINE PHOSPHATASE 85 IU/L (46-116); ANION GAP 8 (8-16); ASPARTATE AMINO TRANSFERASE 32 U/L (10-37); BILIRUBIN,TOTAL 0.3 MG/DL (0.1-1.0); BLOOD UREA NITROGEN 36 MG/DL (7-18); BUN/CREATININE RATIO 23.5 (10.0-20.0); CALCIUM 8.7 MG/DL (8.5-10.1); CHLORIDE 104 MMOL/L (99-107); CREATININE 1.53 MG/DL (0.60-1.10); GLUCOSE 153 MG/DL (70-104); POTASSIUM 4.9 MMOL/L (3.5-5.1); SODIUM 137 MMOL/L (135-145); eCRCL 13 ML/MIN; eGFR 45 ML/MIN
[2025-02-08] MEDS ORDERED: magnesium sulf-water 2g/50mL 50 ML IV PRN (20:20)
[2025-02-08] MEDS ORDERED: magnesium Cl slow-release 64mg tablet PO PRN (20:20)
[2025-02-08] MEDS ORDERED: mag hydrox/Alum hydrox/simeth 30ml oral suspension PO PRN (20:20)
[2025-02-08] MEDS ORDERED: magnesium sulf-water 4G/100mL 100 ML IV PRN (20:20)
[2025-02-08] MEDS ORDERED: potassium Cl 40MEQ/1/2NS 520ml 520 ML IV PRN (20:20)
[2025-02-08] MEDS ORDERED: potassium Cl 20 mEq SR tablet PO PRN ×2 (20:20)
[2025-02-08] MEDS ORDERED: acetaminophen 325mg tablet PO PRN ×2 (20:20)
[2025-02-08] MEDS ORDERED: HYDROcodone/acetaminophen 5mg/325mg tablet PO PRN (20:20)
[2025-02-08] MEDS: HYDROcodone/acetaminophen 10/325mg tab PO PRN (20:50)
[2025-02-08] MEDS: normal saline 1000ml 1,000 ML IV SCH (20:51)
[2025-02-08] MEDS ORDERED: dextrose 50%-water 50ml dispensing syringe IV PRN ×2 (21:30)
[2025-02-08] MEDS ORDERED: DEXTROSE 15 GM of carb/4 tabs (each vial/BOTTLE has 4 tablets) PO PRN ×2 (21:30)
[2025-02-08] MEDS ORDERED: glucagon, human recombinant 1mg kit SUBCUT PRN (21:30)
[2025-02-08] MEDS: morphine 2 MG/ML inj. syringe IV PRN (21:52)
[2025-02-08] MEDS ORDERED: SITA100T15 PO (21:58)
[2025-02-08] MEDS ORDERED: TIRZ2.5P (21:58)
[2025-02-08 23:10] VITALS: BP 120/95; PULSE 101; RESP 15; TEMP 98.3; O2SAT 96
[2025-02-09] VITALS (8 sets, daily range): BP systolic 118–142; BP diastolic 46–97; PULSE 54–80; RESP 15–19; TEMP 96.6–98; O2SAT 95–98
[2025-02-09] MEDS: piperacillin/tazo 3.375gm/50ml 50 ML IV SCH (01:10)
[2025-02-09] MEDS ORDERED: clindamycin 300mg/D5W 50mL 50 ML IV SCH (02:00)
[2025-02-09] MEDS: ondansetron/PF 4mg/2ml inj IV PRN (02:02)
[2025-02-09] MEDS: INSULIN LISPRO 100 UNIT/ML INSULN.PEN MULTI-DOSE SQ SCH ×2 (07:00→08:57)
[2025-02-09 07:38] LABS: INR 1.4 INR; PROTHROMBIN TIME 14.1 SECONDS (9.0-12.0)
[2025-02-09 07:43] LABS: BASOPHILS # (AUTO) 0.1 X10'3 (0-0.2); BASOPHILS % (AUTO) 1.3 % (0-1); EOSINOPHILS # (AUTO) 0.4 X10'3 (0-0.9); EOSINOPHILS % (AUTO) 4.2 % (0-6); HEMATOCRIT 35.2 % (42.0-52.0); HEMOGLOBIN 11.5 g/dl (14.0-17.9); LYMPHOCYTES # (AUTO) 2.2 X10'3 (1.1-4.8); LYMPHOCYTES % (AUTO) 24.3 % (21-51); MEAN CORPUSCULAR HEMOGLOBIN 29.4 PG (27.0-31.0); MEAN CORPUSCULAR HGB CONC 32.7 g/dL (33.0-36.5); MEAN CORPUSCULAR VOLUME 89.8 FL (78-98); MEAN PLATELET VOLUME 11.5 FL (7.4-10.4); MONOCYTES # (AUTO) 1.1 X10'3 (0-0.9); MONOCYTES % (AUTO) 12.4 % (2-12); NEUTROPHILS # (AUTO) 5.2 X10'3 (1.8-7.7); NEUTROPHILS % (AUTO) 57.8 % (42-75); PLATELET COUNT 177 X10'3 (140-440); RED BLOOD COUNT 3.92 X10'6 (4.70-6.10); RED CELL DISTRIBUTION WIDTH 14.9 % (11.5-14.5); WHITE BLOOD COUNT 9.1 X10'3 (4.5-11.0)
[2025-02-09 07:59] LABS: ALANINE AMINOTRANSFERASE 86 U/L (12-78); ALBUMIN 2.9 G/DL (3.4-5.0); ALBUMIN/GLOBULIN RATIO 0.9 (1.1-1.5); ALKALINE PHOSPHATASE 99 IU/L (46-116); ANION GAP 7 (8-16); ASPARTATE AMINO TRANSFERASE 133 U/L (10-37); BILIRUBIN,TOTAL 0.4 MG/DL (0.1-1.0); BLOOD UREA NITROGEN 31 MG/DL (7-18); BUN/CREATININE RATIO 20.1 (10.0-20.0); C-REACTIVE PROTEIN 0.85 MG/DL (0.0-0.5); CALCIUM 8.6 MG/DL (8.5-10.1); CHLORIDE 107 MMOL/L (99-107); CREATININE 1.54 MG/DL (0.60-1.10); GLUCOSE 140 MG/DL (70-104); MAGNESIUM 2.1 MG/DL (1.5-2.4); PHOSPHORUS 3.3 MG/DL (2.3-4.5); POTASSIUM 4.8 MMOL/L (3.5-5.1); PRO BRAIN NATRIURETIC PEPTIDE 124 PG/ML (0-450); SODIUM 138 MMOL/L (135-145); TOTAL CARBON DIOXIDE 23.8 MMOL/L (24-32); TOTAL PROTEIN 6.3 G/DL (6.4-8.2); eCRCL 13 ML/MIN; eGFR 44 ML/MIN
[2025-02-09] MEDS: K and/or MAG REPLACEMENT MC SCH (08:00)
[2025-02-09] MEDS: nystatin/triamcinolone cream 15gm TP SCH (08:00)
[2025-02-09] MEDS: nystatin 15 GM powder TP SCH ×2 (08:00→13:00)
[2025-02-09 08:48] LABS: LARGE PLATELETS FEW; PLATELET ESTIMATE NORMAL
[2025-02-09] MEDS: aspirin 81mg, enteric-coated 1 TAB TABLET.DR PO ONE (12:42)
[2025-02-09] MEDS: normal saline 500ml IV soln 500 ML IV ONE (12:43)
[2025-02-09] MEDS: normal saline 1000ml 1,000 ML IV SCH (12:43)
[2025-02-09] MEDS ORDERED: iohexol 300mg/ml 100ml inj. ONE (13:09)
[2025-02-09] MEDS: diphenhydrAMINE 50 mg/ml inj IV ONE (13:42)
[2025-02-09] MEDS ORDERED: piperacillin/tazo 3.375gm/50ml 50 ML IV SCH (17:03)
[2025-02-09] MEDS: gabapentin 300mg capsule PO PRN (19:27)
[2025-02-09] MEDS: rivaroxaban 20mg tablet PO SCH (19:27)
[2025-02-09] MEDS ORDERED: atorvastatin 20mg tablet PO SCH (21:00)
[2025-02-09] MEDS: insulin glargine (Lantus) pen - multi-dose SQ SCH (22:29)
[2025-02-10 02:00] VITALS: BP 124/84; PULSE 60; RESP 19; TEMP 97.5; O2SAT 98
[2025-02-10 06:28] LABS: BASOPHILS # (AUTO) 0.1 X10'3 (0-0.2); BASOPHILS % (AUTO) 0.5 % (0-1); EOSINOPHILS # (AUTO) 0.4 X10'3 (0-0.9); EOSINOPHILS % (AUTO) 3.7 % (0-6); HEMATOCRIT 34.5 % (42.0-52.0); HEMOGLOBIN 11.7 g/dl (14.0-17.9); LYMPHOCYTES # (AUTO) 2.3 X10'3 (1.1-4.8); LYMPHOCYTES % (AUTO) 21.5 % (21-51); MEAN CORPUSCULAR HEMOGLOBIN 30.1 PG (27.0-31.0); MEAN CORPUSCULAR HGB CONC 33.8 g/dL (33.0-36.5); MEAN CORPUSCULAR VOLUME 89.1 FL (78-98); MEAN PLATELET VOLUME 10.3 FL (7.4-10.4); MONOCYTES # (AUTO) 1.4 X10'3 (0-0.9); MONOCYTES % (AUTO) 13.1 % (2-12); NEUTROPHILS # (AUTO) 6.6 X10'3 (1.8-7.7); NEUTROPHILS % (AUTO) 61.2 % (42-75); PLATELET COUNT 176 X10'3 (140-440); RED BLOOD COUNT 3.87 X10'6 (4.70-6.10); RED CELL DISTRIBUTION WIDTH 14.4 % (11.5-14.5); WHITE BLOOD COUNT 10.8 X10'3 (4.5-11.0)
[2025-02-10 06:45] LABS: ALANINE AMINOTRANSFERASE 106 U/L (12-78); ALBUMIN 2.9 G/DL (3.4-5.0); ALBUMIN/GLOBULIN RATIO 0.8 (1.1-1.5); ALKALINE PHOSPHATASE 112 IU/L (46-116); ANION GAP 7 (8-16); ASPARTATE AMINO TRANSFERASE 110 U/L (10-37); BILIRUBIN,TOTAL 0.3 MG/DL (0.1-1.0); BLOOD UREA NITROGEN 24 MG/DL (7-18); BUN/CREATININE RATIO 16.6 (10.0-20.0); CALCIUM 8.3 MG/DL (8.5-10.1); CHLORIDE 108 MMOL/L (99-107); CREATININE 1.45 MG/DL (0.60-1.10); GLUCOSE 132 MG/DL (70-104); MAGNESIUM 1.9 MG/DL (1.5-2.4); PHOSPHORUS 2.8 MG/DL (2.3-4.5); POTASSIUM 4.4 MMOL/L (3.5-5.1); SODIUM 140 MMOL/L (135-145); TOTAL PROTEIN 6.4 G/DL (6.4-8.2); eCRCL 14 ML/MIN; eGFR 47 ML/MIN
[2025-02-10 07:00] VITALS: BP 116/59; PULSE 69; RESP 13; TEMP 97.6; O2SAT 97
[2025-02-10] MEDS ORDERED: non-formulary drug (Sitagliptin Phosphate* (Januvia*) 1 TAB) PO SCH (08:00)
[2025-02-10] MEDS: piperacillin/tazo 3.375gm/50ml 50 ML IV SCH (08:00)
[2025-02-10] MEDS: atorvastatin 20mg tablet PO SCH (08:31)
[2025-02-10] MEDS: amLODIPine 5mg tablet PO SCH (08:32)
[2025-02-10] MEDS: aspirin 81mg, enteric-coated 1 TAB TABLET.DR PO SCH (08:32)
[2025-02-10] MEDS ORDERED: vancomycin inj 1,000 MG in normal saline 250ml IV soln 250 ML IV ONE (08:40)
[2025-02-10 11:00] VITALS: BP 135/47; PULSE 77; RESP 14; TEMP 97.3; O2SAT 95
[2025-02-10] MEDS: vancomycin/NS 1 GM ADD-VANTAGE 250 ML IV SCH (11:12)
[2025-02-10] MEDS: gabapentin 300mg capsule PO SCH (12:43)
[2025-02-10] MEDS: fluconazole 100mg tablet PO ONE (12:43)
[2025-02-10 15:00] VITALS: BP 125/66; PULSE 68; RESP 22; TEMP 97.6; O2SAT 95
[2025-02-10 18:00] VITALS: BP 131/68; PULSE 80; RESP 18; TEMP 97.8; O2SAT 98
[2025-02-10] MEDS: lactobacillus rhamnosus 10,000 MMU CELLS/CAPSULE PO SCH (20:33)
[2025-02-10 22:00] VITALS: BP 144/64; PULSE 84; RESP 17; TEMP 96.5; O2SAT 98
[2025-02-11 07:00] VITALS: BP 147/60; PULSE 59; RESP 18; TEMP 97.5; O2SAT 96
[2025-02-11 07:30] LABS: BASOPHILS # (AUTO) 0.1 X10'3 (0-0.2); BASOPHILS % (AUTO) 0.9 % (0-1); EOSINOPHILS # (AUTO) 0.4 X10'3 (0-0.9); HEMATOCRIT 35.8 % (42.0-52.0); HEMOGLOBIN 11.9 g/dl (14.0-17.9); LYMPHOCYTES # (AUTO) 1.7 X10'3 (1.1-4.8); LYMPHOCYTES % (AUTO) 17.6 % (21-51); MEAN CORPUSCULAR HEMOGLOBIN 29.7 PG (27.0-31.0); MEAN CORPUSCULAR HGB CONC 33.2 g/dL (33.0-36.5); MEAN CORPUSCULAR VOLUME 89.3 FL (78-98); MEAN PLATELET VOLUME 11.1 FL (7.4-10.4); MONOCYTES # (AUTO) 1.1 X10'3 (0-0.9); MONOCYTES % (AUTO) 11.5 % (2-12); NEUTROPHILS # (AUTO) 6.2 X10'3 (1.8-7.7); PLATELET COUNT 174 X10'3 (140-440); RED CELL DISTRIBUTION WIDTH 14.8 % (11.5-14.5); WHITE BLOOD COUNT 9.4 X10'3 (4.5-11.0)
[2025-02-11 08:12] LABS: ALANINE AMINOTRANSFERASE 109 U/L (12-78); ALBUMIN/GLOBULIN RATIO 0.9 (1.1-1.5); ALKALINE PHOSPHATASE 135 IU/L (46-116); ANION GAP 9 (8-16); ASPARTATE AMINO TRANSFERASE 80 U/L (10-37); BILIRUBIN,TOTAL 0.4 MG/DL (0.1-1.0); BLOOD UREA NITROGEN 20 MG/DL (7-18); BUN/CREATININE RATIO 16.3 (10.0-20.0); CALCIUM 8.7 MG/DL (8.5-10.1); CHLORIDE 107 MMOL/L (99-107); CREATININE 1.23 MG/DL (0.60-1.10); GLUCOSE 146 MG/DL (70-104); MAGNESIUM 1.9 MG/DL (1.5-2.4); PHOSPHORUS 3.3 MG/DL (2.3-4.5); POTASSIUM 4.6 MMOL/L (3.5-5.1); SODIUM 141 MMOL/L (135-145); TOTAL CARBON DIOXIDE 24.9 MMOL/L (24-32); TOTAL PROTEIN 6.2 G/DL (6.4-8.2); eCRCL 16 ML/MIN; eGFR 57 ML/MIN
[2025-02-11] MEDS: fluconazole 100mg tablet PO SCH (08:38)
[2025-02-11 11:00] VITALS: BP 144/54; PULSE 69; RESP 16; TEMP 97.6; O2SAT 99
[2025-02-11] MEDS: furosemide 20 MG/2 ML vial IV SCH (12:58)
[2025-02-11 15:00] VITALS: BP 130/57; PULSE 73; RESP 16; TEMP 97.7; O2SAT 97
[2025-02-11 18:00] VITALS: BP 134/46; PULSE 64; RESP 18; TEMP 97.9; O2SAT 97
[2025-02-11 20:00] VITALS: RESP 16; O2SAT 95
[2025-02-11] MEDS: gabapentin 300mg capsule PO SCH (20:52)
[2025-02-11 22:00] VITALS: BP_SYST 122; BP_SYST 136; BP_DIAS 64; BP_DIAS 82; PULSE 117; PULSE 63; RESP 16; RESP 24; TEMP 97.5; O2SAT 92; O2SAT 95
[2025-02-12 02:00] VITALS: BP 150/74; PULSE 77; RESP 18; TEMP 97.7; O2SAT 95
[2025-02-12 06:00] VITALS: BP 119/53; PULSE 57; RESP 16; TEMP 97.6; O2SAT 100
[2025-02-12 06:48] LABS: BASOPHILS # (AUTO) 0.1 X10'3 (0-0.2); BASOPHILS % (AUTO) 0.6 % (0-1); EOSINOPHILS # (AUTO) 0.5 X10'3 (0-0.9); EOSINOPHILS % (AUTO) 5.3 % (0-6); HEMATOCRIT 34.8 % (42.0-52.0); HEMOGLOBIN 11.6 g/dl (14.0-17.9); LYMPHOCYTES # (AUTO) 2.3 X10'3 (1.1-4.8); LYMPHOCYTES % (AUTO) 24.8 % (21-51); MEAN CORPUSCULAR HEMOGLOBIN 29.7 PG (27.0-31.0); MEAN CORPUSCULAR HGB CONC 33.4 g/dL (33.0-36.5); MEAN CORPUSCULAR VOLUME 88.7 FL (78-98); MEAN PLATELET VOLUME 10.2 FL (7.4-10.4); MONOCYTES % (AUTO) 10.3 % (2-12); NEUTROPHILS # (AUTO) 5.5 X10'3 (1.8-7.7); PLATELET COUNT 189 X10'3 (140-440); RED BLOOD COUNT 3.92 X10'6 (4.70-6.10); RED CELL DISTRIBUTION WIDTH 14.4 % (11.5-14.5); WHITE BLOOD COUNT 9.4 X10'3 (4.5-11.0)
[2025-02-12 07:04] LABS: ALANINE AMINOTRANSFERASE 79 U/L (12-78); ALBUMIN 2.9 G/DL (3.4-5.0); ALBUMIN/GLOBULIN RATIO 0.8 (1.1-1.5); ALKALINE PHOSPHATASE 120 IU/L (46-116); ANION GAP 8 (8-16); ASPARTATE AMINO TRANSFERASE 49 U/L (10-37); BILIRUBIN,TOTAL 0.3 MG/DL (0.1-1.0); BLOOD UREA NITROGEN 21 MG/DL (7-18); BUN/CREATININE RATIO 15.2 (10.0-20.0); CALCIUM 9.1 MG/DL (8.5-10.1); CHLORIDE 106 MMOL/L (99-107); CREATININE 1.38 MG/DL (0.60-1.10); GLUCOSE 137 MG/DL (70-104); MAGNESIUM 1.7 MG/DL (1.5-2.4); PHOSPHORUS 4.1 MG/DL (2.3-4.5); POTASSIUM 4.4 MMOL/L (3.5-5.1); SODIUM 140 MMOL/L (135-145); TOTAL CARBON DIOXIDE 26.2 MMOL/L (24-32); TOTAL PROTEIN 6.5 G/DL (6.4-8.2); eCRCL 15 ML/MIN; eGFR 50 ML/MIN
[2025-02-12 08:00] VITALS: RESP 16; O2SAT 100
[2025-02-12 11:00] VITALS: BP 132/55; PULSE 66; RESP 18; TEMP 97.9; O2SAT 96
[2025-02-12 14:58] VITALS: RESP 16
[2025-02-12] MEDS ORDERED: carVEDilol 12.5mg tablet PO SCH (20:00)
[2025-02-13] MEDS ORDERED: VANCOMYCIN LEVEL IV ONE (08:30)
== END 2025-02-12 15:52 | DRG 602 ==
LOC: ER 14:38 → ED HOLD 20:24 → PCU 3S 23:03
PROVIDERS: ADMIT Internal Medicine Pulmonary Disease; ATTEND Nurse Practitioner Family
PROC: BW211ZZ Computerized Tomography (CT Scan) of Abdomen and Pelvis using Low Osmolar Contrast (ICD-10-PCS; principal; 2025-02-09)
PROC: 05HC33Z Insertion of Infusion Device into Left Basilic Vein, Percutaneous Approach (ICD-10-PCS; 2025-02-12)
DX: L03.314 Cellulitis of groin (principal); N17.0 Acute kidney failure with tubular necrosis; L03.115 Cellulitis of right lower limb; K65.4 Sclerosing mesenteritis; E78.00 Pure hypercholesterolemia, unspecified; I10 Essential (primary) hypertension; I48.91 Unspecified atrial fibrillation; J44.9 Chronic obstructive pulmonary disease, unspecified; E11.51 Type 2 diabetes mellitus with diabetic peripheral angiopathy without gangrene; N43.2 Other hydrocele; D64.9 Anemia, unspecified; I25.10 Atherosclerotic heart disease of native coronary artery without angina pectoris; N49.9 Inflammatory disorder of unspecified male genital organ; Z91.041 Radiographic dye allergy status; Z88.8 Allergy status to other drugs, medicaments and biological substances; Z91.09 Other allergy status, other than to drugs and biological substances; Z86.718 Personal history of other venous thrombosis and embolism; Z95.1 Presence of aortocoronary bypass graft; Z85.46 Personal history of malignant neoplasm of prostate; Z79.01 Long term (current) use of anticoagulants; Z89.511 Acquired absence of right leg below knee; Z89.512 Acquired absence of left leg below knee
CPT/HCPCS: 36410; 36415; 71045; 74177; 76937; 80053; 81003; 82948; 83036; 83605; 83735; 83880; 84100; 84145; 84484; 85008; 85025; 85610; 85651; 85730; 86140; 87040; 87081; 93005; 96365; 96367; 96375; 97162; 97530; 99285; A6213; A6222; A6223; A6449; C1751; G0378; J0696; J1200; J1815; J1940; J2270; J2405; J2543; J3370; J3490; J7030; J7040; Q9967

== ENCOUNTER 2025-05-27 16:50 | Inpatient (IN) | payer BC, MEDICAID ==
[~2025-05-27] VITALS: Ht 121.9 cm; Wt 93.6 kg
[~2025-05-27 16:50] MED LIST changes: +BACL10TA2 PO; -CLOT30CR19 TOP; -FURO20TA4 PO; +LACT1CAP26 PO; -LISI40TA13 PO; +LISI40TA20 PO; +NYST30CR28 TOP; +ONDA-103 PO; -ONDA-243 PO; +PER5325T PO; +SITA100T15 PO
--- NOTE | 2025-05-27 18:45 | Physician Documentation ---
History of Present Illness ~ Chief Complaint: Wound Stated Complaint: GROIN PAIN Time Seen by MD: 18:25 OK to notify your PCP?: Yes Primary Medical Doctor: Christina brandt Source: patient, RN/MD, EMS, RN notes reviewed, EMS notes reviewed, old records Mode of Arrival: EMS Exam Limitations: no limitations HPI This pleasant 74-year-old comes into the ER complaining of severe right thigh pain. He has had this infection for quite some time now. He has been admitted multiple times for it. His hemoglobin A1c was over nine but he now has a contr olled at 6.2 but his wounds still do not heal he has been on five different courses of antibiotics and he has a weekly wound care who basically does dressing changes. He states that in the last 24 hours it became so severe that he can not move his leg he can not go to the toilet he is immobile from the pain. He denies any fevers or chills. He states he has had this pain before but it usually has a sign of infection. He has had CAT scans before but then infections have never been super deep. He is not being followed by a surgeon. He has bilateral lower extremity amputations. He is here complaining of severe pain requesting additional pain med stating his OxyContin isn't helping. Tetanus within 5 years?: No Medication Reconciliation Allergies: Coded Allergies: adhesive tape (Verified Allergy, Intermediate, RASH, 05/27/25) Iodinated Contrast Media (Verified Allergy, Unknown, RASH, 05/27/25) Gkmofel-WPX-ZrK Reductase Inhibitor (Verified Allergy, Unknown, CAN'T TOLERATE, 05/27/25) PER EXT. MED HX - PT HAS BEEN TAKING ROSUVASTATIN LAST YEAR Sulfa (Sulfonamide Antibiotics) (Unverified Allergy, Unknown, CAN'T REMEMBER-HAD RXN CHILD, 05/27/25) iodine (Verified Allergy, Unknown, 05/27/25) lactose (Verified Adverse Reaction, Unknown, GI intolerance, 05/27/25) Uncoded Allergies: SULFA (Allergy, Intermediate, RASH, 06/12/23) Scheduled Amlodipine Besylate (Amlodipine Besylate), 1 TABLET PO DAILY, (Reported) Baclofen (Baclofen), 1 TAB PO HS, (Reported) Carvedilol* (Coreg*), 1 TABLET PO BID, (Reported) Gabapentin (Gabapentin), 1 CAP PO QID, (Reported) Lactobacillus Rhamnosus (Culturelle), 2 CAP PO DAILY Lisinopril* (Lisinopril*), 1 TAB PO DAILY, (Reported) Metformin Hcl (Metformin Hcl), 1,000 MG PO BID Nystatin (Nystatin), 1 APPLIC TOP Q8H Rivaroxaban (Xarelto), 1 TAB PO QDD, (Reported) Rosuvastatin Calcium (Rosuvastatin Calcium), 1 TAB PO DAILY, (Reported) Sitagliptin Phosphate* (Januvia*), 1 TAB PO QAM, (Reported) Scheduled PRN Ondansetron HCl (Ondansetron HCl), 1 TAB PO for nausea/vomiting, (Reported) Oxycodone Hcl/Acetaminophen 5/325 MG* (Percocet 5/325 MG*), 1 TAB PO QID PRN for pain, (Reported) Past Medical History Past Medical History: Atrial Fibrillation, Coronary Artery Disease, High Cholesterol, Hypertension, Vascular Disease, Diabetes, Deep Vein Thrombosis Past Surgical History: angioplasty, coronary bypass surgery, orthopedic surgeries, other Patient History: (CABG) Coronary artery bypass grafting (COPD) Chronic obstructive lung disease MOTHER, Onset:50's - 60 (PVD) Peripheral vascular disease FATHER, Onset:60 years & older Alcohol Use: Heavy Drug Use: none Lives with: Spouse Lives In: Home Occupation: retired Review of Systems All Other Systems at this time: Reviewed and Negative ROS As stated above in the HPI, otherwise all systems are reviewed and negative. Physical Exam Vital Signs: RN Vital Signs have been reviewed: Yes, Temperature: 98.5, Source: Oral, Heart Rate: 78, Respiratory Rate: 16, BP: 122/68, Pulse Oximetry: 99, Weight: 93.640 Oxygen Flow Rate: 0 Physical Exam General: The patient is well developed, well nourished, nontoxic appearing and is in no acute distress. Skin: [place], warm and dry with no rashes. HEENT: Head was normocephalic and atraumatic. Eyes - pupils equal, round, reactive to light and accommodation. Extraocular movements were intact. Conjunctivae were nonicteric. The mouth and oropharynx were clear with moist mucous membranes. There were no pharyngeal exudates Neck: Supple and nontender. There was no jugular venous distention, lymphadenopathy, Chest: Clear to auscultation bilaterally without wheezes, rales or rhonchi. No accessory muscle use. Heart: Rate regular and rhythmic. S1, S2. No murmurs. Palpation of the chest wall was normal. Abdomen: Soft, nontender and nondistended. Positive bowel sounds. No guarding or rebound. No hepatosplenomegaly or palpable masses. Extremities: No cyanosis, clubbing or edema. The patient moves all extremities. Pulses were equal and symmetric. Bilateral gqnwm-qbi-xcvj amputations. Right stump has three open ulcers with chronic skin changes no obvious cellulitis severe tenderness at the most distal end of the lesions. No fluctuance or mass. All three are approximately 2 cm in diameter. Neurologic: Motor sensory grossly intact Psychologic: The patient was oriented to person, place and time. The patient demonstrated appropriate judgement and insight. Progress Progress Note 8:00 p.m. discussed the case with the hospitalist for admission Results/Orders Reviewed/noted all lab results: Yes Results/Orders Orders - IFTIKHAR YATES MD Electrocardiogram (05/27/25 18:37) Culture Blood (05/27/25 18:37) Procalcitonin (05/27/25 18:45) Ct Lower Extremity (05/27/25 19:42) Page Hospitalist (05/27/25 19:54) Fill Out Med Reconciliation (05/27/25 19:54) Completed Orders - IFTIKHAR YATES MD Cbc/Diff (05/27/25 18:37) MG (05/27/25 18:37) Urinalysis, Cult If Indicated (05/27/25 18:37) Procalcitonin (05/27/25 18:37) Vancomycin/Ns 1 Gm Add-Langlois (Vancomyc (05/27/25 18:40) BMP (05/27/25 18:37) Lacticsepsis (05/27/25 18:37) C-Reactive Protein (05/27/25 18:45) ESR (05/27/25 18:45) Hydromorphone 1 Mg/Ml/Pf (Dilaudid Inj.) (05/27/25 18:45) Ct Lower Extremity (05/27/25 19:42) Medications Received in ER Medications (Trade) Dose Ordered Sig/Andrea Route PRN Reason Start Time Stop Time Status Last Admin Dose Admin Vancomycin HCl 250 ml @ 166 mls/hr ONCE ONCE IV 05/27/25 18:40 05/27/25 20:10 DC 05/27/25 19:08 166 MLS/HR (Dilaudid inj.) 1 mg ONCE ONCE IV 05/27/25 18:45 05/27/25 18:47 DC 05/27/25 19:08 1 MG Vital Signs 05/27/25 05/27/25 05/27/25 05/27/25 16:57 17:07 17:08 18:09 Temp 98.5 98.5 98.5 Pulse 83 81 78 Resp 18 18 18 16 B/P (MAP) 120/68 120/68 (85) 122/68 (86) Pulse Ox 97 94 99 O2 Flow Rate 0 05/27/25 05/27/25 18:30 19:08 Resp 18 18 B/P (MAP) Laboratory Tests Test 05/27/25 18:53 05/27/25 18:59 05/27/25 20:03 White Blood Count 11.1 H Red Blood Count 4.14 L Hemoglobin 12.1 L Hematocrit 36.9 L Mean Corpuscular Volume 89.2 Mean Corpuscular Hemoglobin 29.3 Mean Corpuscular Hemoglobin Concent 32.9 L Red Cell Distribution Width 15.4 H Platelet Count 229 Mean Platelet Volume 10.0 Neutrophils (%) (Auto) 73.7 Lymphocytes (%) (Auto) 15.5 L Monocytes (%) (Auto) 7.4 Eosinophils (%) (Auto) 2.9 Basophils (%) (Auto) 0.5 Neutrophils # (Auto) 8.2 H Lymphocytes # (Auto) 1.7 Monocytes # (Auto) 0.8 Eosinophils # (Auto) 0.3 Basophils # (Auto) 0.1 CBC Comment Sodium Level 138 Potassium Level 3.9 Chloride Level 104 Carbon Dioxide Level 26.2 Anion Gap 8 Blood Urea Nitrogen 18 Creatinine 1.19 H Estimated GFR/1.73 m2 60 BUN/Creatinine Ratio 15.1 Glucose Level 160 H Lactic Acid Level 1.0 Calcium Level 8.8 Magnesium Level 2.0 C-Reactive Protein 1.71 H Albumin 3.1 L Procalcitonin < 0.05 Chemistry Comments Erythrocyte Sedimentation Rate 46 H Urine Specimen Description Non-specified Urine Color Yellow Urine Clarity Clear Urine pH 6.0 Urine Specific Coleman 1.010 Urine Protein Negative Urine Glucose (UA) 100 H Urine Ketones Negative Urine Occult Blood Negative Urine Nitrite Negative Urine Bilirubin Negative Urine Urobilinogen 0.2 Urine Leukocyte Esterase Negative Urine Culture Indicated Not ind Volume Urine Centrifuged 10 ml Urine Comment Microbiology Date/Time Source Procedure Growth Status 05/27/25 18:59 Blood Arm Left Blood Culture - Preliminary NEGATIVE (LESS THAN 24 HOURS) Resulted Re-Evaluation Re-Evaluation : Re-Evaluation: Improved Progress Patient was seen and examined. Patient was given reassurance. Old medical record was reviewed with prior hospitalizations. 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 Patient has severe pain to the right thigh unable to ambulate or move. Patient was started on vancomycin. Laboratory work was obtained in somewhat suspicious for infectious etiology. White count is elevated at 11.1. Sed rate is elevated at 46 including CRP at 1.71. Glucose is also elevated at 160. Patient's procalcitonin however is negative. Blood cultures were obtained lactic acid is within normal limits. Patient received Dilaudid for his pain his pain seems to be intractable. Cat scan was obtained he has not allergy to contrast dye so the CAT scan was done without contrast showed some cellulitic changes but no abscess or significant stranding. Hospitalist was contacted for admission and wound care consultation. Continuous pvc monitor interpretation shows normal sinus rhythm heart rate 80s, no ectopy, normal, my interpretation. Pulse oximetry monitor interpretation shows normal oxygenation at 97% room air, normal, my interpretation. EKG/XRAY/CT/US/VASC/MRI EKG : Additional Comment [id number]: JODY Yates interpreted EKG to reveal snus rhythm at a rate of 65 bpm with a QTc of 450. Poor R wave progression. CT : Interpreted By: both With Contrast?: No Impression Ordering Physician: IFTIKHAR YATES MD Exam: CT LOWER EXTREMITY Indication: right thigh pain and infection Technique: CT axial images of the right thigh region are obtained without contrast. Coronal and sagittal reformats were obtained. Radiation Dose Information: CTDI volume is 19.7 mGy. Dose-length product is 1001 mGy*cm Comparison: CT CT LOWER EXTREMITY on DOS: 03/18/25, CTA LOWER EXTREMITY on DOS: 06/05/22 FINDINGS: Atherosclerotic disease. Right iliac artery stent. Colonic diverticular disease. Prostate brachytherapy seeds. No free pelvic fluid.m right inguinal hernia containing fat measuring 2.7 x 2.3 cm. No right inguinal lymphadenopathy. Right above knee amputation. There is medial right knee thigh subcutaneous thickening and soft tissue stranding. No loculated collection identified. Atrophy of the right quadriceps and hamstring musculature especially pronounced in the right hamstring region. Postsurgical changes of the left inguinal region/ anteromedial proximal left thigh. Mild degenerative changes right hip. No osseous erosion identified. IMPRESSION: Right medial thigh region subcutaneous thickening with soft tissue stranding may represent cellulitis. No loculated collection identified. Right knee amputation. Atherosclerotic disease. Other findings as described. Medical Decision Making Additional info obtained from: old records Differential Dx:Considerations: Include: Abscess, Cellulitis, Dressing change, Healing wound, Other Departure Time of Disposition: 21:09 Admitted to Inpatient Unit: yes, to hospitalist Admission Level of Care: Med/Surg Impression: Primary Impression: Wound cellulitis Additional Impressions: Unable to ambulate Hyperglycemia Wound pain Condition: Fair Referrals: NO PRIMARY CARE PROVIDER (PCP) Education Educated: Patient Educated regarding: diagnosis Signature Scribe Signature: Scribed for Iftikhar Yates MD by Erika Pepper . 05/27/25 21:06 Attestation: The note accurately reflects work and decisions made by me.Iftikhar Yates MD 05/27/25 18:45 IFTIKHAR YATES MD May 27, 2025 18:44 ERIKA SALCEDO May 27, 2025 21:09
[2025-05-27] MEDS: vancomycin/NS 1 GM ADD-VANTAGE 250 ML IV ONE (19:08)
[2025-05-27 19:17] LABS: MEAN PLATELET VOLUME 10.0 FL (7.4-10.4); RED CELL DISTRIBUTION WIDTH 15.4 % (11.5-14.5)
[2025-05-27 19:20] LABS: CREATININE 1.19 MG/DL (0.60-1.10); TOTAL CARBON DIOXIDE 26.2 MMOL/L (24-32); eCRCL 17 ML/MIN; eGFR 60 ML/MIN
--- NOTE | 2025-05-27 20:17 | RADIOLOGY REPORT ---
Indication: right thigh pain and infection Technique: CT axial images of the right thigh region are obtained without contrast. Coronal and sagit scooter reformats were obtained. Radiation Dose Information: CTDI volume is 19.7 mGy. Dose-length product is 1001 mGy*cm Comparison: CT CT LOWER EXTREMITY on DOS: 03/18/25, CTA LOWER EXTREMITY on DOS: 06/05/22 FINDINGS: Atherosclerotic disease. Right iliac artery stent. Colonic diverticular disease. Prostate brachyth erapy seeds. No free pelvic fluid.m right inguinal hernia containing fat measuring 2.7 x 2.3 cm. No r ight inguinal lymphadenopathy. Right above knee amputation. There is medial right knee thigh subcutaneous thickening and soft tissue stranding. No loculated collection identified. Atrophy of the right quadriceps and hamstring muscul ature especially pronounced in the right hamstring region. Postsurgical changes of the left inguinal region/ anteromedial proximal left thigh. Mild degenerative changes right hip. No osseous erosion identified. IMPRESSION: Right medial thigh region subcutaneous thickening with soft tissue stranding may represent cellulitis . No loculated collection identified. Right knee amputation. Atherosclerotic disease. Other findings as described.
[2025-05-27 20:22] LABS: LEUKOCYTE ESTERASE ,URINE NEGATIVE (Neg); NITRITES, URINE NEGATIVE (Neg); OCCULT BLOOD,URINE NEGATIVE (Neg)
[2025-05-27 20:26] LABS: UA COLLECTION TYPE NON-SPECIFIED
[2025-05-27] MEDS ORDERED: magnesium sulf-water 4G/100mL 100 ML IV PRN (21:35)
[2025-05-27] MEDS ORDERED: potassium Cl 40MEQ/1/2NS 520ml 520 ML IV PRN (21:35)
[2025-05-27] MEDS ORDERED: potassium Cl 20 mEq SR tablet PO PRN ×2 (21:35)
[2025-05-27] MEDS ORDERED: magnesium Cl slow-release 64mg tablet PO PRN (21:35)
[2025-05-27] MEDS ORDERED: magnesium sulf-water 2g/50mL 50 ML IV PRN (21:35)
--- NOTE | 2025-05-27 21:43 | HISTORY AND PHYSICAL-Residence ---
History & Physical Providers to CC Resident Creating Document: BERYL ROLLE, RES CC: LAURA VASQUEZ MD ~ History of Present Illness Primary Medical Doctor: [facility] karly Reason for Admit\Complaint: Intractable pain and nonhealing ulcer in the groin History of Present Illness A 74-year-old male with past medical history AFib, HTN, diabetes mellitus type 2 of presented to the ED in view of infection and wound in the right groin since the end of January. Patient was treated at home by a home nurse and wound care once a week, the wound did not get better per the patient. Patient uses oxycodone five for pain that did not help him this afternoon. Patient had worsened pain with a severity of 10/10, sharp, nonradiating with no aggravating or relieving factors. Patient says the wound has been about the same since the end of January despite multiple antibiotic regimen and wound care. Patient denies fever, chills, burning micturition. Patient was recently admitted in Mar, 2025 in view of scrotum cellulitis. Patient also had multiple admissions with regards to scrotum cellulitis. Patient was discharged on the 20 of March with IV linezolid 600 mg p.o. q.12h for 10 days. Patient has been on multiple antibiotics for the same in the past 3-4 months. Allergies: Coded Allergies: adhesive tape (Verified Allergy, Intermediate, RASH, 05/27/25) Iodinated Contrast Media (Verified Allergy, Unknown, RASH, 05/27/25) Sulfa (Sulfonamide Antibiotics) (Unverified Allergy, Unknown, CAN'T REMEMBER-HAD RXN CHILD, 05/27/25) iodine (Verified Allergy, Unknown, 05/27/25) lactose (Verified Adverse Reaction, Unknown, GI intolerance, 05/27/25) Uncoded Allergies: SULFA (Allergy, Intermediate, RASH, 06/12/23) Home Medications Home Medications Active Culturelle (Lactobacillus Rhamnosus) 10 Billion Cell Capsule 2 Cap PO DAILY 30 Days Nystatin 100,000 Unit/Gram Cream..g. 1 Applic TOP Q8H 7 Days apply to affected area(s) Metformin Hcl 500 Mg Tablet 1,000 Mg PO BID 30 Days Reported Baclofen 10 Mg Tablet 1 Tab PO HS 30 Days Percocet 5/325 MG* (Oxycodone/Acetaminophen) 5 Mg/325 Mg Tablet 1 Tab PO QID PRN Ondansetron HCl 4 Mg Tablet 1 Tab PO PRN Januvia* (Sitagliptin Phosphate*) 100 Mg Tablet 1 Tab PO QAM Gabapentin 400 Mg Capsule 1 Cap PO QID 30 Days Coreg* (Carvedilol) 12.5 Mg Tablet 1 Tablet PO BID Lisinopril* (Lisinopril) 40 Mg Tablet 1 Tab PO DAILY Amlodipine Besylate 10 Mg Tablet 1 Tablet PO DAILY Rosuvastatin Calcium 40 Mg Tablet 1 Tab PO DAILY Xarelto (Rivaroxaban) 20 Mg Tablet 1 Tab PO QDD Past Medical History Past Medical History Atrial Fibrillation Coronary Artery Disease HLD Hypertension PAD-s/p right common iliac and external iliac stenting Diabetes Deep Vein Thrombosis Past Surgical History Surgical History Comment Coronary angioplasty coronary bypass surgery Bilateral BKA Family History Family History: (CABG) Coronary artery bypass grafting (COPD) Chronic obstructive lung disease MOTHER, Onset:50's - 60 (PVD) Peripheral vascular disease FATHER, Onset:60 years & older Past Social History Social History Comment Patient lives at [place] at home by himself Sees Dr. Mooney for primary care Smokes marijuana daily Denies alcohol, smoking, illicit drug use Smoking: Non-Smoker Alcohol Use: Heavy Drug Use: None Lives with: Spouse Lives In: Home Occupation: retired ROS ROS All other systems reviewed in full and negative except for the pertinent positives mentioned in the HPI Exam Vitals: Vital Signs Date Time Temp Pulse Resp B/P (MAP) Pulse Ox O2 Delivery O2 Flow Rate FiO2 05/27/25 19:08 18 05/27/25 18:30 05/27/25 18:09 98.5 78 99 0 General: General: Alert, awake, oriented, not in acute distress HEENT: PERRLA, no icterus, pallor, lymphadenopathy, carotid bruit Respiratory system: Bilateral vesicular breath sounds heard, no adventitious breath sounds CVS: S1-S2 heard, no murmurs/rubs/gallop GI: Soft, nontender, no organomegaly, no guarding/rigidity, bowel sounds present Neuro: No focal neurological deficits present Extremities: Bilateral BKA Genitourinary: Tunneled ulcers with pus draining and skin discoloration present in the right groin Skin: Warm and dry Diagnostic Data Last Recorded Lab Results: 05/28/25 0502 05/28/25 0502 Advance Care Planning Advanced Care plannin - 30 Minutes (I spent 20 minutes discussing various resuscitative measures and the patient decided to be full code) Additional Plan Assessment: A 74-year-old female with multiple comorbidities presented to the ED in view of pain nonhealing ulcer in the right groin. Patient is admitted for the evaluation management of nonhealing ulcer in the groin with probable cellulitis. Plan: Nonhealing chronic ulcer in the groin Possible cellulitis Probably 2/[address] lower extremity: Right medial thigh region subcutaneous thickening with soft tissue stranding may represent cellulitis. No loculated collection identified. Mildly elevated WBC count, normal procalcitonin, elevated CRP and ESR Started the patient on IV meropenem, patient might not require any antibiotics, consult with ID in a.m. IV fluids at 100 cc/hour IV Dilaudid for pain management Wound care Uncontrolled diabetes mellitus type 2 A1c in April, 5:10.3 20 units Lantus, high-dose sliding scale, lispro 10 units t.i.d. Prerenal TINA probably secondary to renal tubular stasis Elevated creatinine Continue IV fluids at 100 cc/hour Continue to monitor BMP Paroxysmal atrial fibrillation Currently in sinus rhythm Continue home medication Coreg 12.5 mg p.o. b.i.d. and Xarelto 20 mg p.o. daily Hypertension Continue home medication amlodipine 10 mg p.o. daily and lisinopril 40 mg p.o. daily Coronary Artery Disease status post CABG PAD-s/p right common iliac and external iliac stenting Patient is on Xarelto, GDM T with lisinopril Consider further optimization with GDM T HLD Follow up with lipid panel Continue rosuvastatin 40 mg History of DVT Continue Xarelto as per above Code status: Full code Diet: 60 g carb controlled Anticoagulation: Xarelto Disposition: Admit to ortho, ID consult in a.m., wound care Beryl Rolle MD Internal Medicine, PGY 2 Addendum I personally reviewed the chart, labs and imaging and reviewed the patient with the team. I agree with the assessment and plan as documented by the resident. Patient was seen through remote audio-visual assessment through HIPAA compliance setup. Date of Service: May 27, 2025 Billing Provider: LAURA VASQUEZ MD, SIVA, RES May 27, 2025 21:43 LAURA VASQUEZ MD May 29, 2025 04:05
[2025-05-27] MEDS: normal saline 1000ml 1,000 ML IV SCH (21:54)
[2025-05-27] MEDS: HYDROcodone/acetaminophen 10/325mg tab PO PRN (22:55)
[2025-05-27] MEDS ORDERED: DEXTROSE 15 GM of carb/4 tabs (each vial/BOTTLE has 4 tablets) PO PRN ×2 (23:45)
[2025-05-27] MEDS ORDERED: glucagon, human recombinant 1mg kit SUBCUT PRN (23:45)
[2025-05-27] MEDS ORDERED: dextrose 50%-water 50ml dispensing syringe IV PRN ×2 (23:45)
[2025-05-28] MEDS: HYDROmorphone/PF 0.2 MG/ML SYRINGE IV PRN (01:13)
[2025-05-28 02:05] VITALS: BP 134/52; PULSE 63; RESP 18; TEMP 96.7; O2SAT 99
[2025-05-28 05:29] LABS: MEAN PLATELET VOLUME 10.1 FL (7.4-10.4); RED CELL DISTRIBUTION WIDTH 14.9 % (11.5-14.5)
[2025-05-28 05:42] LABS: CREATININE 0.97 MG/DL (0.60-1.10); TOTAL CARBON DIOXIDE 23.0 MMOL/L (24-32); eCRCL 21 ML/MIN; eGFR 75 ML/MIN
[2025-05-28 06:00] VITALS: BP 149/49; PULSE 53; RESP 16; TEMP 98; O2SAT 96
[2025-05-28] MEDS: INSULIN LISPRO 100 UNIT/ML INSULN.PEN MULTI-DOSE SQ SCH ×2 (07:00→08:00)
[2025-05-28] MEDS: docusate sod 100mg capsule PO SCH (07:36)
[2025-05-28] MEDS: heparin, porcine 5000 units/ml vial SQ SCH (07:36)
[2025-05-28] MEDS: meropenem inj 500 MG in normal saline 100ml IV soln 100 ML IV SCH (07:41)
[2025-05-28] MEDS: K and/or MAG REPLACEMENT MC SCH (08:00)
[2025-05-28] MEDS ORDERED: ROSUVASTATIN 40 MG TAB PO SCH (08:00)
--- NOTE | 2025-05-28 08:13 | ELECTROCARDIOGRAPH REPORT ---
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 DERRICK Harris Measurements Intervals [place] Rate: 50 P: 16 WI: 208 QRS: -25 QRSD: 110 T: 13 QT: 491 QTc: 448 Interpretive Statements Sinus bradycardia Borderline left axis deviation Electronically Signed On 05-29-2025 15:34:[address] DERRICK Harris Please click the below link to view image of tracing.
[2025-05-28 10:00] VITALS: BP 129/54; PULSE 53; RESP 18; TEMP 97.3; O2SAT 97
[2025-05-28] MEDS ORDERED: MEROPENEM 500MG/50ML-NS IVPB 50 ML IV SCH (12:05)
--- NOTE | 2025-05-28 12:33 | PROGRESS NOTE ---
Daily Progress Note Providers to CC ~ Antibiotic Timeout Antibiotic Ordered?: Yes Subjective No acute events overnight. Patient examined at bedside. No new complaints, not in acute distress. Patient denies chest pain, sob, palpitations, abdominal pain, n/v/d. Vss, labs unremarkable. CT reveals right medial thigh region cellulitis, no loculated collection identified. Chronic ulcer with uncontrolled diabetes, failed outpatient management, was discharged with linezolid in March. Consulted ID Dr. Galan. Objective Vital Signs Date Time Temp Pulse Resp B/P (MAP) Pulse Ox O2 Delivery O2 Flow Rate FiO2 05/28/25 10:00 97.3 53 18 129/54 (79) 97 Room Air 05/28/25 08:00 0.0 Result Diagram: 05/28/25 0502 05/28/25 0502 Physical Exam General: Generalized weakness, A&Ox 3, NAD HEENT: Normocephalic, PERRLA Neck: Supple, trachea midline, no JVD Chest: Clear to auscultation bilaterally Cardiovascular: RRR, S1&S2 GI: Soft and nontender Extremities: b/l AKA HOP GROWER: CN II-XII intact, no focal deficits Musculoskeletal: No paraspinal muscle tenderness, no muscle spasm Skin: Ulceration of right groin with small drainage Problem\Assessment\Plan 74yo male with uncontrolled diabetes with chronic ulcer in right groin, failed outpatient management, was discharged with linezolid in March. Assessment & Plan Cellulitis, right groin, failed outpatient management Diabetic ulcer NIDDM Prerenal TINA likely 2/[address] lower extremity: Right medial thigh region subcutaneous thickening with soft tissue stranding may represent cellulitis. No loculated collection identified. -05/28: on meropenem, IVF, Lantus/supplemental, consulted ID Dr. Galan, wound care Atrial fibrillation HTN CAD s/p CABG PAD s/p right common iliac and external iliac stent HLD NIDDM Hx DVT b/l AKA -A1c 6.4%, LDL 61, TGL 63; currently in sinus rhythm, continue home carvedilol, amlodipine, lisinopril, Xarelto, statin Code status: Full code DVT/VTE Prophylaxis: Xarelto Date of Service: May 28, 2025 Billing Provider: AMELIA GONZALEZ MACHINE BUFFER Common Visit Codes: [id number] INP/OBS CARE(HIGH) AMELIA GONZALEZ [facility] May 28, 2025 12:33
[2025-05-28] MEDS: ARGININE/GLUTAMINE/CALCIUM BMB (JUVEN 19.3GM PKT) 1 EACH POWD.PACK PO SCH (17:39)
[2025-05-28] MEDS: lactose-reduced food (Ensure High Protein) 237ml bottle PO SCH (17:46)
[2025-05-28 18:00] VITALS: BP 136/54; PULSE 54; RESP 13; TEMP 98.2; O2SAT 96
[2025-05-28] MEDS: DAPTOmycin inj. 500 MG in normal saline 100ml IV soln 100 ML IV SCH (18:55)
--- NOTE | 2025-05-28 19:18 | CONSULTATION ---
DATE OF CONSULTATION: 05/28/2025 DICTATING PHYSICIAN: Himanshu Galan MD REASON FOR CONSULTATION: I am seeing the patient at the request of Michael Chandler for evaluation of a nonhealing wound at the right inner thigh. HISTORY OF PRESENT ILLNESS: The patient is a 74-year-old male with significant peripheral arterial disease who presented to this facility with persistent open wounds and associated pain at the right inner thigh. He states that he has been battling this for several months. He has tried a variety of oral antibiotics including cephalexin and doxycycline. He has been hospitalized at this facility at least 3 other times this year. When he was discharged in mid March, he was given a course of linezolid. Back in february, he received IV antibiotics during his hospitalization. Going back to january, he was apparently given clindamycin. He states that he does see Wound Care every Sunday here at [facility]. He is not having any fever. His white blood cell count is mildly elevated at the 11,000 range. He was placed on meropenem for unclear reasons. He does not really have any wound cultures. He has required bilateral fqxfk-npz-lypy amputations in the past due to ischemia of his distal lower extremities. He states that his left side was amputated first and then his right side was amputated. He started with jgefp-rwo-gkac amputations and eventually progressed to rpddd-kqh-pjqu amputations. He also states that he has undergone percutaneous intervention involving the proximal vessels. He does have a contrast allergy, but it appears that he had a contrast study of the abdomen and pelvis back in March. At that time, there was concern that he had occluded stents on the right side. PAST MEDICAL HISTORY: * Diabetes mellitus type 2 that appears to be controlled. * Peripheral arterial disease. * Atrial fibrillation. * Hypertension. * Dyslipidemia. * Chronic pain. * Coronary artery disease. * Venous thromboembolic disease. PAST SURGICAL HISTORY: * Coronary artery bypass grafting. * Bilateral cfkux-qxm-bdcv amputation that initially started as hpfve-wpp-iuwc amputation. ALLERGIES: IODINATED CONTRAST AND SULFA. MEDICATIONS: * Meropenem. * Baclofen. * Insulin glargine. * Xarelto. * Gabapentin. * Atorvastatin. * Lisinopril. * Amlodipine. * Carvedilol. * Colace. FAMILY HISTORY: Noncontributory. SOCIAL HISTORY: He lives alone in [place]. He states that his son lives next door. He is followed by Dr. Raymond. He does not smoke tobacco, but he does use marijuana. PHYSICAL EXAMINATION: VITAL SIGNS: He is afebrile with stable vital signs. GENERAL: He is a pleasant elderly male, sitting up in bed, looking stable. HEENT: Sclerae anicteric. Mouth is clear. NECK: Supple. LUNGS: Clear to auscultation bilaterally. HEART: Regular rate and rhythm. ABDOMEN: Soft and nontender. EXTREMITIES: He has bilateral dzlmb-uwu-ptjc amputations. He has chronic wounds with shallow ulceration at the right inner thigh. He does have hyperpigmentation at that site. I did visualize pictures on his phone as well as in the chart. LABORATORY DATA: His white blood cell count is 11,300, hemoglobin 10.9, platelets 193,000. Creatinine is 0.97. Blood cultures are pending. MRSA screen is pending. Noncontrast CT scan was not helpful, but there does not appear to be any significant fluid collection. IMPRESSION: * Nonhealing painful wounds at the right inner thigh. Despite being very proximal, I suspect these are arterial ulcers related to poor vascular supply. His CT scan of the abdomen and pelvis a couple of months ago hinted that he does not have good proximal flow at that site. I am not sure that he even has an infectious process. His white blood cell count is mildly elevated. Wound cultures have not been done and he does not have significant surrounding cellulitis. * Diabetes mellitus type 2 that appears to be controlled. * Peripheral arterial disease and history of venous thromboembolic disease. He has required bilateral jogdb-bgu-lrmj amputations in the past. PLAN: Meropenem will be discontinued. I am going to provide him with gram-positive coverage using daptomycin. I do think he may benefit from CT angiography of the distal aorta with runoff to the remaining lower extremities. It is unclear if he would be a candidate for any intervention. I will discuss his contrast allergy with him in the morning and get that study ordered. We will see if he needs any premedication. He will continue with local wound care. I will continue to follow him closely and I thank you for allowing me to participate in his care. Himanshu Galan MD TID: [id number] RECEIPT: [id number] CLIFF/SLIME
[2025-05-28 20:00] VITALS: RESP 18; O2SAT 95
[2025-05-28] MEDS: insulin glargine (Lantus) pen - multi-dose SQ SCH (21:00)
[2025-05-28 22:00] VITALS: BP 137/53; PULSE 58; RESP 16; TEMP 97.4; O2SAT 96
[2025-05-29 05:28] LABS: MEAN PLATELET VOLUME 10.2 FL (7.4-10.4); RED CELL DISTRIBUTION WIDTH 15.6 % (11.5-14.5)
[2025-05-29 05:48] LABS: CREATININE 1.02 MG/DL (0.60-1.10); TOTAL CARBON DIOXIDE 20.9 MMOL/L (24-32); eCRCL 20 ML/MIN; eGFR 71 ML/MIN
[2025-05-29 06:44] VITALS: BP 143/53; PULSE 55; RESP 17; TEMP 97.9; O2SAT 96
--- NOTE | 2025-05-29 07:59 | ELECTROCARDIOGRAPH REPORT ---
[facility] Test Date: 2025-05-27 Test Time: 18:44:53 Pat Name: BRITTON DAIGLE Department: EMERGENCY ROOM Room: ORTHO 4021 A Gender: M Calibration Specialist: : [id number] Requested By: DEPARTMENT EMERGENCY Order Number: [id number] Reading MD: Dr. Iftikhar Yates Measurements Intervals [place] Rate: 65 P: 38 OH: 210 QRS: -28 QRSD: 106 T: 32 QT: 432 QTc: 450 Interpretive Statements Sinus rhythm Borderline left axis deviation Low voltage, precordial leads Abnormal R-wave progression, late transition Baseline wander in lead(s) I,III,aVR,aVL,aVF,V5 Electronically Signed On 05-29-2025 8:03:[address] Iftikhar Yates Please click the below link to view image of tracing.
[2025-05-29 10:00] VITALS: BP 133/71; PULSE 66; RESP 17; TEMP 97.4; O2SAT 96
--- NOTE | 2025-05-29 10:35 | PROGRESS NOTE ---
Progress Note Dictate Providers to CC ~ Subjective Subjective: He states that he may have had a mild reaction to contrast years ago, but he has had a contrast CT scan since that time with no trouble. He is otherwise stable with pain involving his wound. Objective Objective: GENERAL: He is a pleasant elderly male, sitting up in bed, looking stable. LUNGS: Clear to auscultation bilaterally. HEART: Regular rate and rhythm. ABDOMEN: Soft and nontender. EXTREMITIES: He has bilateral sukbc-daa-yeyi amputations. He has chronic wounds with shallow ulceration at the right inner thigh. He does have hyperpigmentation at that site. Lab Results: 05/29/25 0507 05/29/25 0507 Lab comments: MRSA screen positive Problem\Assessment\Plan Additional Plan 1. Nonhealing painful wounds at the right inner thigh. Despite being very proximal, I suspect these are ulcers related to poor arterial supply. CT scan of the abdomen and pelvis a couple of months ago hinted that he does not have good proximal flow at that site. Unclear if infection present, but would focus on Gram positives, including MRSA 2. Diabetes mellitus type 2 that appears to be controlled. 3. Peripheral arterial disease and history of venous thromboembolic disease. He has required bilateral pnwgy-oce-biqu amputations in the past. Continue daptomycin Check CT angiogram of aorta with runoff at proximal lower extremities May need to contact vascular surgery depending on results Wound care STEPHY VALDOVINOS MD May 29, 2025 10:35
--- NOTE | 2025-05-29 12:51 | PROGRESS NOTE ---
Daily Progress Note Providers to CC ~ Antibiotic Timeout Antibiotic Ordered?: Yes Subjective No acute events overnight. Patient examined at bedside. No new complaints, not in acute distress. Patient denies chest pain, sob, palpitations, abdominal pain, n/v/d. Vss, labs unremarkable. CT reveals right medial thigh region cellulitis, no loculated collection identified. Chronic ulcer with uncontrolled diabetes, failed outpatient management, was discharged with linezolid in March. Abx changed to daptomycin, per ID recommendation. Premedicated CTA aorta w/ runoff to be done. 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 Assessment & Plan Cellulitis, right groin, failed outpatient management Diabetic ulcer NIDDM Prerenal TINA likely 2/2 vasomotor nephropathy PAD s/p b/l AKA CT lower extremity: Right medial thigh region subcutaneous thickening with soft tissue stranding may represent cellulitis. No loculated collection identified. -05/28: on meropenem, IVF, Lantus/supplemental, consulted ID Dr. Galan, wound care -05/29: Abx changed to daptomycin, per ID recommendation. Premedicated CTA aorta w/ runoff to be done. Atrial fibrillation, CHADS-VASc 6 HTN CAD s/p CABG PAD s/p b/l AKA PAD s/p right common iliac and external iliac stent HLD NIDDM Hx DVT b/l AKA -A1c 6.4%, LDL 61, TGL 63; currently in sinus rhythm, continue home carvedilol, amlodipine, lisinopril, Xarelto, statin -05/29: hydralazine added Code status: Full code DVT/VTE Prophylaxis: Xarelto Date of Service: May 29, 2025 Billing Provider: AMELIA GONZALEZ Common Visit Codes: [id number] INP/OBS CARE(HIGH) AMELIA GONZALEZ May 29, 2025 12:51
[2025-05-29 18:30] VITALS: BP 140/44; PULSE 59; RESP 18; TEMP 97.5; O2SAT 92
[2025-05-29 22:00] VITALS: BP 146/62; PULSE 71; RESP 17; TEMP 98; O2SAT 96
[2025-05-30] VITALS (8 sets, daily range): BP systolic 109–145; BP diastolic 53–79; PULSE 52–92; RESP 16–18; TEMP 97.2–97.8; O2SAT 95–98
[2025-05-30 05:48] LABS: MEAN PLATELET VOLUME 11.0 FL (7.4-10.4); RED CELL DISTRIBUTION WIDTH 14.9 % (11.5-14.5)
[2025-05-30 06:30] LABS: CREATININE 1.19 MG/DL (0.60-1.10); TOTAL CARBON DIOXIDE 20.6 MMOL/L (24-32); eCRCL 17 ML/MIN; eGFR 60 ML/MIN
[2025-05-30] MEDS: mag hydrox/Alum hydrox/simeth 30ml oral suspension PO PRN (08:05)
[2025-05-30] MEDS ORDERED: iohexol 350 MG/ML 50ML vial IV ONE (09:58)
--- NOTE | 2025-05-30 16:15 | RADIOLOGY REPORT ---
Examination: CT CTA ABDOMEN LOWER EXTR RUNOFF CLINICAL HISTORY: PAD with concern for impaired arterial flow at proximal RLE Comparison: None Technique: Using helical technique, CT data from the chest through the toes was obtained during rapid IV contrast infusion. The examination was timed to the arterial system to generate a CT angiographic study. 3D images were generated at an independent work station. Dose reduction techniques included a utomated exposure control. Radiation Dose Information: CT Dose: CTDI volume is 19.2 mGy. Dose-length product is 1979 mGy*cm Findings: Vascular: Thoracic aorta: Normal caliber, patent Aortic arch: Normal caliber, patent Descending aorta: Normal caliber, patent Supraaortic branches: Conventional branching pattern. Normal caliber, patent Coronary arteries: Positive coronary artery calcifications. Diffuse Vascular atherosclerotic calcifications. Abdominal aorta: Normal caliber, patent Celiac artery: Patent SMA: Patent Renal arteries: Patent SY: Patent Bilateral above the knee amputation. Right lower extremity: Common iliac artery: Occluded External iliac artery: Occluded Internal iliac artery: Patent Common femoral artery: High-grade stenosis. Profunda femoral artery: Patent Superficial femoral artery: Severe multifocal high-grade tandem stenoses and occluded distally. Left lower extremity: Common iliac artery: Patent External iliac artery: Patent Internal iliac artery: Patent Common femoral artery: Patent Profunda femoral artery: Patent Superficial femoral artery: Occluded Portal/mesenteric veins: normal Abdominal systemic veins: normal Chest: Lungs/Pleura: Mild diffuse increased interstitial prominence. Patchy bilateral ground-glass airspace opacities. Axilla/Soft Tissue: No supraclavicular or axillary adenopathy. Regional soft tissues are within [place] l limits. Mediastinum:Visualized thyroid is normal. No pathologic mediastinal or hilar adenopathy. Esophagus i s normal. Trachea and proximal bronchi are normal. Heart: Cardiomegaly. Coronary artery calcifications. Vascular calcifications of the aorta. Median tom rnotomy. Abdomen/Pelvis: Liver: The liver is normal in size and morphology,. No focal hepatic lesion. The portal veins are pat ent. Biliary System: Gallbladder: Normal Bile Ducts: No intrahepatic or extrahepatic biliary ductal dilation. Spleen: No splenomegaly or focal splenic lesion. Pancreas: No masses or ductal dilation. Adrenals: Normal. Urinary System: Kidneys and Ureters: Normal in size and location. No renal masses. No renal or ureteral calculi. No hydronephrosis or hydroureter. Bladder: Normal. GI System: Stomach, small bowel, and large bowel are normal in caliber without wall thickening or dil ation Appendix is normal. Lymph nodes: No lymphadenopathy. Peritoneal cavity and surface: No free fluid. No pneumoperitoneum. Soft Tissues: Normal. Reproductive Organs: Normal. Bones: No acute fracture or aggressive osseous lesion. Impression: Bilateral above the knee amputation. Diffuse vascular atherosclerotic disease. Right common iliac artery, external iliac artery are occluded. High-grade stenosis of the right common femoral artery. Severe multifocal high-grade tandem stenoses of the right superficial femoral artery with distal occl usion. Left superficial femoral artery is occluded. Chest: Diffuse increased interstitial prominence and patchy bilateral ground-glass airspace opacities. Findi ngs may represent a combination of fluid overload and/or multifocal infection. Abdomen/Pelvis: 1. No acute abdominal pelvic process.
--- NOTE | 2025-05-30 18:01 | PROGRESS NOTE ---
Daily Progress Note Providers to CC ~ Antibiotic Timeout Antibiotic Ordered?: Yes Subjective No acute events overnight. Patient examined at bedside. No new complaints, not in acute distress. Patient denies chest pain, sob, palpitations, abdominal pain, n/v/d. Vss, labs unremarkable. CT reveals right medial thigh region cellulitis, no loculated collection identified. Chronic ulcer with uncontrolled diabetes, failed outpatient management, was discharged with linezolid in March. Abx changed to daptomycin, per ID recommendation. CTA aorta w/ runoff negative. 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 Assessment & Plan Cellulitis, right groin, failed outpatient management Diabetic ulcer Hyperglycemia Prerenal TINA likely 2/2 vasomotor nephropathy PAD s/p b/l AKA CT lower extremity: Right medial thigh region subcutaneous thickening with soft tissue stranding may represent cellulitis. No loculated collection identified. -05/28: on meropenem, IVF, Lantus/supplemental, consulted ID Dr. Galan, wound care -05/29: Abx changed to daptomycin, per ID recommendation. Premedicated CTA aorta w/ runoff to be done. -05/30: CTA aorta w/ runoff negative Atrial fibrillation, CHADS-VASc 6 HTN CAD s/p CABG PAD s/p b/l AKA PAD s/p right common iliac and external iliac stent HLD NIDDM Uncontrolled diabetes Hyperglycemia Hx DVT b/l AKA -A1c 6.4%, LDL 61, TGL 63; currently in sinus rhythm, continue home carvedilol, amlodipine, lisinopril, Xarelto, statin, Lantus/supplemental -05/29: hydralazine added Code status: Full code DVT/VTE Prophylaxis: Xarelto Date of Service: May 30, 2025 Billing Provider: AMELIA GONZALEZ Common Visit Codes: [id number] INP/OBS CARE(HIGH) AMELIA GONZALEZ May 30, 2025 18:01
[2025-05-30] MEDS ORDERED: insulin glargine (Lantus) pen - multi-dose SQ SCH (21:00)
[2025-05-30] MEDS: insulin glargine (Lantus) pen - multi-dose SQ SCH (21:40)
[2025-05-31 06:00] VITALS: BP 121/56; PULSE 64; RESP 18; TEMP 98.2; O2SAT 97
[2025-05-31 06:18] LABS: MEAN PLATELET VOLUME 10.8 FL (7.4-10.4); RED CELL DISTRIBUTION WIDTH 15.3 % (11.5-14.5)
[2025-05-31 07:10] LABS: CREATININE 1.04 MG/DL (0.60-1.10); TOTAL CARBON DIOXIDE 20.9 MMOL/L (24-32); eCRCL 19 ML/MIN; eGFR 70 ML/MIN
[2025-05-31 07:55] VITALS: BP 136/62; PULSE 61
--- NOTE | 2025-05-31 10:27 | PROGRESS NOTE ---
Daily Progress Note Providers to CC ~ Antibiotic Timeout Antibiotic Ordered?: Yes Subjective No acute events overnight. Patient examined at bedside. No new complaints, not in acute distress. Patient denies chest pain, sob, palpitations, abdominal pain, n/v/d. Vss, labs notable for uptrended white count. CT reveals right medial thigh region cellulitis, no loculated collection identified. Chronic ulcer with uncontrolled diabetes, failed outpatient management, was discharged with linezolid in March. Abx changed to daptomycin, per ID recommendation. CTA aorta w/runoff positive for occluded right common iliac artery, external iliac artery, high-grade stenosis of the right common femoral artery, severe multifocal high- grade tandem stenoses of the right superficial femoral artery with distal occlusion, occluded left superficial femoral artery. 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 Assessment & Plan Cellulitis, right groin, failed outpatient management Diabetic ulcer Hyperglycemia Prerenal TINA likely 2/2 vasomotor nephropathy PAD s/p b/l AKA CT lower extremity: Right medial thigh region subcutaneous thickening with soft tissue stranding may represent cellulitis. No loculated collection identified. -05/28: on meropenem, IVF, Lantus/supplemental, consulted ID Dr. Galan, wound care -05/29: Abx changed to daptomycin, per ID recommendation. Premedicated CTA aorta w/ runoff to be done. -05/30: CTA aorta w/runoff positive for occluded right common iliac artery, external iliac artery, high-grade stenosis of the right common femoral artery, severe multifocal high-grade tandem stenoses of the right superficial femoral artery with distal occlusion, occluded left superficial femoral artery, will consult vascular surgeon tomorrow as there is no siebel consultant available until tomorrow. Atrial fibrillation, CHADS-VASc 6 HTN CAD s/p CABG PAD s/p b/l AKA PAD s/p right common iliac and external iliac stent HLD NIDDM Uncontrolled diabetes Hyperglycemia Hx DVT b/l AKA -A1c 6.4%, LDL 61, TGL 63; currently in sinus rhythm, continue home carvedilol, amlodipine, lisinopril, Xarelto, statin, Lantus/supplemental -05/29: hydralazine added Code status: Full code DVT/VTE Prophylaxis: Xarelto Date of Service: May 31, 2025 Billing Provider: AMELIA GONZALEZ Common Visit Codes: [id number] INP/OBS CARE(HIGH) AMELIA GONZALEZ May 31, 2025 10:27
[2025-05-31 18:00] VITALS: BP 116/49; PULSE 50; RESP 17; TEMP 97.6; O2SAT 98
[2025-05-31 22:00] VITALS: BP 136/39; PULSE 51; RESP 16; TEMP 97.7; O2SAT 97
[2025-06-01 05:44] LABS: CREATININE 0.90 MG/DL (0.60-1.10); TOTAL CARBON DIOXIDE 22.5 MMOL/L (24-32); eCRCL 22 ML/MIN; eGFR 82 ML/MIN
[2025-06-01 05:49] LABS: MEAN PLATELET VOLUME 11.0 FL (7.4-10.4); RED CELL DISTRIBUTION WIDTH 15.3 % (11.5-14.5)
[2025-06-01 06:00] VITALS: BP 125/45; PULSE 53; RESP 16; TEMP 97.6; O2SAT 97
[2025-06-01] MEDS ORDERED: heparin, porcine 5000 units/ml vial SQ SCH (08:00)
[2025-06-01 09:35] VITALS: BP 143/89; PULSE 69; RESP 18; O2SAT 97
[2025-06-01] MEDS: aspirin 81mg, enteric-coated 1 TAB TABLET.DR PO SCH (09:35)
--- NOTE | 2025-06-01 10:41 | PROGRESS NOTE ---
Progress Note Dictate Providers to CC ~ Subjective Subjective: He states that he is doing okay. He still has pain associated with his wounds. He is tolerating daptomycin. Objective Objective: GENERAL: He is a pleasant elderly male, sitting up in bed, looking stable. LUNGS: Clear to auscultation bilaterally. HEART: Regular rate and rhythm. ABDOMEN: Soft and nontender. EXTREMITIES: He has bilateral pivla-eie-skya amputations. He has chronic wounds with shallow ulceration at the right inner thigh. Lab Results: 06/01/25 0428 06/01/25427 Radiology comments: Right lower extremity: Common iliac artery: Occluded External iliac artery: Occluded Internal iliac artery: Patent Common femoral artery: High-grade stenosis. Profunda femoral artery: Patent Superficial femoral artery: Severe multifocal high-grade tandem stenoses and occluded distally. Problem\Assessment\Plan Additional Plan 1. Nonhealing painful wounds at the right inner thigh. Despite being very proximal, I suspect these ulcers may be related to poor arterial supply. Unclear if infection present, but would focus on Gram positives, including MRSA 2. Diabetes mellitus type 2 that appears to be controlled. 3. Peripheral arterial disease and history of venous thromboembolic disease. He has required bilateral mcyze-gbc-lijb amputations in the past. Continue daptomycin Await opinion from Dr. Rubalcava regarding the possibility of vascular intervention Wound care STEPHY VALDOVINOS MD Jun 01, 2025 10:41
[2025-06-01 10:45] VITALS: BP 129/53; PULSE 65; RESP 16; TEMP 97.7; O2SAT 97
--- NOTE | 2025-06-01 10:46 | PROGRESS NOTE ---
Daily Progress Note Providers to CC ~ Antibiotic Timeout Antibiotic Ordered?: Yes Subjective No acute events overnight. Patient examined at bedside. No new complaints, not in acute distress. Patient denies chest pain, sob, palpitations, abdominal pain, n/v/d. Vss, labs notable for downtrended white count. CT revealed right medial thigh region cellulitis, no loculated collection identified. Chronic ulcer with uncontrolled diabetes, failed outpatient management, was discharged with linezolid in March. On daptomycin. CTA aorta w/runoff positive for occluded right common iliac artery, external iliac artery, high-grade stenosis of the right common femoral artery, severe multifocal high-grade tandem stenoses of the right superficial femoral artery with distal occlusion, occluded left superficial femoral artery. Vascular surgeon Dr. Rubalcava consulted. 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 Assessment & Plan Cellulitis, right groin, failed outpatient management Diabetic ulcer Hyperglycemia Prerenal TINA likely 2/2 vasomotor nephropathy PAD s/p b/l AKA CT lower extremity: Right medial thigh region subcutaneous thickening with soft tissue stranding may represent cellulitis. No loculated collection identified. -05/28: on meropenem, IVF, Lantus/supplemental, consulted ID Dr. Galan, wound care -05/29: Abx changed to daptomycin, per ID recommendation. Premedicated CTA aorta w/ runoff to be done. -05/30: CTA aorta w/runoff positive for occluded right common iliac artery, external iliac artery, high-grade stenosis of the right common femoral artery, severe multifocal high-grade tandem stenoses of the right superficial femoral artery with distal occlusion, occluded left superficial femoral artery, will consult vascular surgeon tomorrow as there is no production support consultant available until tomorrow. -06/01: Vascular surgeon Dr. Rubalcava consulted. Atrial fibrillation, CHADS-VASc 6 HTN CAD s/p CABG PAD s/p b/l AKA PAD s/p right common iliac and external iliac stent HLD NIDDM Uncontrolled diabetes Hyperglycemia Hx DVT b/l AKA -A1c 6.4%, LDL 61, TGL 63; currently in sinus rhythm, continue home carvedilol, amlodipine, lisinopril, Xarelto, statin, Lantus/supplemental -05/29: hydralazine added Code status: Full code DVT/VTE Prophylaxis: Xarelto Date of Service: Jun 01, 2025 Billing Provider: AMELIA GONZALEZ Common Visit Codes: [id number] INP/OBS CARE(HIGH) AMELIA GONZALEZ Jun 01, 2025 10:46
[2025-06-01] MEDS: lactose-reduced food (Ensure High Protein) 237ml bottle PO SCH (17:30)
[2025-06-01] MEDS ORDERED: metoprolol tartrate 1mg/ml inj IV PRN (17:35)
[2025-06-01] MEDS ORDERED: aminophylline 250mg/10ml inj. IV PRN (17:35)
--- NOTE | 2025-06-01 17:35 | PROGRESS NOTE ---
Progress Note ID Providers to CC ~ Progress Note Progress Note: pt seen-cta reviewed-right leg non healing wounds possibly secondary to ischemia-pt needs right candle molder hand endarterectomy-needs preop JAG Lyons MD Jun 01, 2025 17:35
[2025-06-01 18:00] VITALS: BP 131/61; PULSE 73; RESP 18; TEMP 97.6; O2SAT 96
[2025-06-01 22:00] VITALS: BP 131/48; PULSE 61; RESP 16; TEMP 98; O2SAT 98
[2025-06-02] VITALS (11 sets, daily range): BP systolic 114–174; BP diastolic 50–77; PULSE 59–91; RESP 16–18; TEMP 97–97.8; O2SAT 93–98
[2025-06-02] MEDS: regadenoson 0.4mg/5ml syringe IV PRN (09:25)
--- NOTE | 2025-06-02 09:49 | PROGRESS NOTE ---
Daily Progress Note Providers to CC No new complaint today resting comfortably in the bed ~ Central Line/PICC still needed: No Tracey-Non Protocol Tracey Indications Met/Not Met: F/C Indications Not Met Antibiotic Timeout Antibiotic Ordered?: Yes MRSA Education MRSA Education Provided to pt: Yes Subjective As above Objective Vital Signs Date Time Temp Pulse Resp B/P (MAP) Pulse Ox O2 Delivery O2 Flow Rate FiO2 06/02/25 08:07 18 06/02/25 00:00 61 06/01/25 22:00 98.0 131/48 (75) 98 06/01/25 20:00 Room Air 05/31/25 20:00 0.0 Vital signs, stable ,afebrile. Pulse Oximetry reflects adequate oxygenation. General: well developed, well nourished. Awake , alert, and oriented x4, resting comfortably in the bed, in no acute distress . Skin: Warm, dry, no pallor, no rash or petechiae. Dressing clean dry intact HEENT: Atraumatic, normocephalic, EOMI, anicteric sclera B; pink conjunctiva; PERRLA, normal oropharynx, moist oral and nasal mucosa. Tympanic membrane , nose , throat clear. Neck: Trachea midline. Supple, full range of motion, no JVD, bruit , hepatojugular reflex , lymphadenopathy or masses, or other lesions Cardiac: Regular rhythm, regular rate no murmurs, rubs, or gallops. Normal S1 and S2, no S3 noticed. PMI is normal. Respiratory: Equal breath sounds bilaterally, no tachypnea; lungs clear to auscultation bilaterally, no wheezing ,rub or rales, or crackles. Chest wall is symmetric and without deformity. No signs of trauma. Chest wall is nontender. No signs of respiratory distress. Resonance is normal upon percussion bilaterally. Gastrointestinal: Abdomen symmetric, non-distended, soft, non-tender, normal bowel sounds x4 quadrant, normoactive, no hepatosplenomegaly , no masses , no bruit, no flank pain bilaterally. No voluntary guarding, rebound, or rigidity. No tenderness to percussion. No pulsatile masses. Equal femoral pulses. No Kaur's sign or McBurney point tenderness. Back; no CVA tenderness bilaterally, no deformities. Neck and back are without deformity as well. No tenderness noted on palpation of the spinous processes. Spinous processes are midline. Cervical, thoracic, and lumbar paraspinal muscles are not tender and are without spasm. : normal external genitalia, without lesions, swelling, masses or tenderness. Musculoskeletal: Extremities, normal range of motion, non-tender, muscle strength 5/5 x 4. Negative Homans signs bilaterally on lower extremity. Distal pulses full symmetrical, no clubbing, cyanosis , edema. Neurological: Speech is clear, alert, and oriented x 4. No motor or sensory deficit, deep tendon reflexes normal, cerebellar intact. Cranial nerves II-XII intact. Psych: Alert and or appropriate, normal affect. Vascular: Good distal pulses, which are equal x4; capillary refill less than 2 seconds. Lymphatic, no lymphadenopathy. Result Diagram: 06/01/2542706/01/25427 Problem\Assessment\Plan 74yo male with uncontrolled diabetes with chronic ulcer in right groin, failed outpatient management, was discharged with linezolid in March. Assessment & Plan Cellulitis, right groin, failed outpatient management Diabetic ulcer Hyperglycemia Prerenal TINA likely 2/2 vasomotor nephropathy PAD s/p b/l AKA CT lower extremity: Right medial thigh region subcutaneous thickening with soft tissue stranding may represent cellulitis. No loculated collection identified. -05/28: on meropenem, IVF, Lantus/supplemental, consulted ID Dr. Galan, wound care -05/29: Abx changed to daptomycin, per ID recommendation. Premedicated CTA aorta w/ runoff to be done. -05/30: CTA aorta w/runoff positive for occluded right common iliac artery, external iliac artery, high-grade stenosis of the right common femoral artery, severe multifocal high-grade tandem stenoses of the right superficial femoral artery with distal occlusion, occluded left superficial femoral artery, will consult vascular surgeon tomorrow as there is no program evaluation consultant available until tomorrow. -06/01: Vascular surgeon Dr. Rubalcava consulted. Scheduled for endarterectomy in the morning Atrial fibrillation, CHADS-VASc 6 HTN CAD s/p CABG PAD s/p b/l AKA PAD s/p right common iliac and external iliac stent HLD NIDDM Uncontrolled diabetes Hyperglycemia Hx DVT b/l AKA -A1c 6.4%, LDL 61, TGL 63; currently in sinus rhythm, continue home carvedilol, amlodipine, lisinopril, Xarelto, statin, Lantus/supplemental -05/29: hydralazine added Code status: Full code DVT/VTE Prophylaxis: Xarelhuy Sepsis Screening Reassessment Date: Jun 02, 2025 Date of Service: Jun 02, 2025 Billing Provider: OSMANY MENDOZA MD Common Visit Codes: [id number] INP/OBS CARE(HIGH) OSMANY MENDOZA MD Jun 02, 2025 09:49
--- NOTE | 2025-06-02 11:30 | RADIOLOGY REPORT ---
EXAM: NM NM LOU SCAN HISTORY: preop 74-year-old male with history of coronary artery disease status post CABG, hypertensi on, diabetes mellitus, hyperlipidemia, atrial fibrillation. COMPARISON: None TECHNIQUE: REST STUDY: 8.3 mCi of Technetium 99m-Tetrofosmin. STRESS STUDY: 31.9 mCi of Technetium 99m-Tetrofosmin. The patient was stressed with regadenoson 0.4 m g IV. Cardiac-gated tomographic images of the heart were obtained in the short and long axis projections. I mages were obtained at rest and immediately following stress. Stress and rest images were performed o n the same day. FINDINGS: No perfusion defects are identified on the stress or rest images. Wall motion is normal. Left ventric ular ejection fraction is 64%. IMPRESSION: 1. No evidence of old myocardial infarct or stress-induced ischemia. 2. Normal wall motion and LVEF.
--- NOTE | 2025-06-02 13:32 | PROGRESS NOTE ---
Progress Note ID Providers to CC ~ Progress Note Progress Note: brianna neg-right gum dipper endarterectomy in am JAG BENAVIDES MD Jun 02, 2025 13:32
[2025-06-02] MEDS: magnesium hydroxide 30ml (MOM) UD suspension PO PRN (16:47)
[2025-06-03] VITALS (29 sets, daily range): BP systolic 116–164; BP diastolic 47–92; PULSE 58–117; RESP 8–20; TEMP 97.8–98.3; O2SAT 93–98
[2025-06-03] MEDS ORDERED: heparin 10,000 units/1 ML INJ ONE ×2 (09:05→09:30)
[2025-06-03] MEDS ORDERED: iohexol 300 MG/1 ML 50ml polymer ONE (09:06)
--- NOTE | 2025-06-03 09:15 | PROGRESS NOTE ---
Progress Note Dictate Providers to CC ~ Subjective Subjective: He has been evaluated by Dr. Rubalcava, and he will be going to the operating room today for right common femoral endarterectomy. Objective Objective: GENERAL: He is a pleasant elderly male, sitting up in bed, looking stable. LUNGS: Clear to auscultation bilaterally. HEART: Regular rate and rhythm. ABDOMEN: Soft and nontender. EXTREMITIES: He has bilateral [id number]-oci-mmql amputations. He has chronic wounds with shallow ulceration at the right inner thigh. Lab Results: 06/01/2542706/01/25427 Problem\Assessment\Plan Additional Plan 1. Nonhealing painful wounds at the right inner thigh. Despite being very proximal, I suspect these ulcers may be related to poor arterial supply. Unclear if infection present, but would focus on Gram positives, including MRSA 2. Diabetes mellitus type 2 that appears to be controlled. 3. Peripheral arterial disease and history of venous thromboembolic disease. He has required bilateral tlznj-afc-hepq amputations in the past. Continue daptomycin Revascularization today with Dr. Rubalcava Wound care STEPHY VALDOVINOS MD Jun 03, 2025 09:15
--- NOTE | 2025-06-03 11:20 | PROGRESS NOTE ---
Progress Note ID Providers to CC ~ Progress Note Progress Note: discussed procedure including risks/benefits/alternatives JAG BENAVIDES MD Jun 03, 2025 11:20
[2025-06-03] MEDS: HYDROcodone/acetaminophen 10/325mg tab PO ONE (11:25)
[2025-06-03] MEDS ORDERED: LIDOcaine 1% (10mg/ml)w/preservative inj. 20ml MDV ONE (11:49)
[2025-06-03] MEDS ORDERED: midazolam 1 mg/ML 2ml injection ONE (12:01)
[2025-06-03] MEDS ORDERED: fentaNYL /PF 50mcg/ml 5ml ampule ONE ×2 (12:02→12:54)
[2025-06-03] MEDS ORDERED: HYDROmorphone/PF 0.2 MG/ML SYRINGE IV PRN (12:45)
[2025-06-03] MEDS ORDERED: ondansetron/PF 4mg/2ml inj IV PRN (12:45)
[2025-06-03] MEDS ORDERED: hydrALAZINE 20mg/ml inj. IV PRN ×2 (12:45→17:05)
[2025-06-03] MEDS: ringers solution, lacted 1,000 ML IV SCH (12:45)
[2025-06-03] MEDS ORDERED: labetalol 20mg/4ml (5mg/ml) syringe IV PRN (12:45)
[2025-06-03] MEDS ORDERED: ceFOXitin 1000 MG inj ONE ×2 (12:53)
[2025-06-03] MEDS ORDERED: propofol inj 20 ML IV ONE (12:53)
[2025-06-03] MEDS ORDERED: ondansetron/PF 4mg/2ml inj ONE (12:53)
[2025-06-03] MEDS ORDERED: LIDOcaine 2% (20mg/ml) 5ml vial ONE (12:53)
[2025-06-03] MEDS ORDERED: rocuronium 10mg/ml inj IV ONE (12:53)
[2025-06-03] MEDS ORDERED: dexamethasone sod phosphate 4mg/ml inj. ONE (12:53)
[2025-06-03] MEDS ORDERED: 0.9 % SODIUM CHLORIDE 10 ML VIAL ONE (13:12)
[2025-06-03] MEDS ORDERED: heparin 1,000unit/ml 10ml vial 10 ML ONE (13:12)
[2025-06-03] MEDS ORDERED: ePHEDrine 50MG/ML INJ. ONE (13:12)
[2025-06-03] MEDS ORDERED: glycopyrrolate 0.2mg/ml inj ONE (14:18)
[2025-06-03] MEDS: morphine 4 MG/ML inj SYRINge IV PRN (14:33)
[2025-06-03] MEDS: acetaminophen 1,000mg/100ml IV 100 ML IV PRN (14:34)
--- NOTE | 2025-06-03 14:54 | RADIOLOGY REPORT ---
CHEST RADIOGRAPH Indication: POST OP Technique: Single frontal view of the chest was obtained Comparison: DI CHEST,SINGLE VIEW on DOS: 02/08/25, DI CHEST,SINGLE VIEW on DOS: 01/27/25, DI CHEST,SINGL E VIEW on DOS: 07/27/23, CHEST,SINGLE VIEW on DOS: 06/24/19 FINDINGS: Lines and Tubes: right CVC with tip in svc Lungs: No focal consolidation. Pleura: No effusion. No pneumothorax. Cardiomediastinal contours: Cardiomegaly Bones: No acute osseous abnormality. IMPRESSION: Cardiomegaly with CHF.
[2025-06-03] MEDS: HYDROmorphone/PF 0.2 MG/ML SYRINGE IV PRN (14:57)
--- NOTE | 2025-06-03 15:21 | OPERATIVE REPORT ---
Operative Report Providers to CC ~ Date of Procedure: Jun 03, 2025 Pre-Operative Diagnosis: rle ischemia Post-Operative Diagnosis SAME as PRE-Op Procedure Performed r web pressman endarterectomy/sfa endarterectomy Surgeon: rosemary rivera Anesthesiologist: Armin Sexton Type of Anesthesia: General Findings: web pressman/sfa plaque Estimated Blood Loss: 100 ml Specimen Removed: web pressman/sfa plaque JAG BENAVIDES MD Jun 03, 2025 15:21
[2025-06-03] MEDS: HYDROmorph/NS 0.2 mg/ml PCA 100 ML IV SCH (16:41)
--- NOTE | 2025-06-03 19:21 | CONSULTATION ---
DATE OF CONSULTATION: 06/01/2025 DICTATING PHYSICIAN: Carlton Rubalcava MD REASON FOR CONSULTATION: Evaluation of right lower extremity ischemia. HISTORY OF PRESENT ILLNESS: The patient is a 74-year-old male with history of peripheral vascular disease, coronary artery disease, cerebrovascular disease, AFib, and diabetes. He has had bilateral AKAs performed. He has developed nonhealing wounds on the medial aspect of the right thigh. Despite multiple antibiotic regimens, wounds have not healed. He had a CTA, which revealed multilevel disease of iliac artery occlusion, common femoral artery stenosis. Surgical evaluation is now requested for proximal endarterectomy in an attempt to improve wound healing. On further questioning, the patient complains of intermittent pain with numbness in the lower extremities. He has had open wounds in the last few months per his report. PAST MEDICAL HISTORY: Atrial fibrillation, hypertension, diabetes type 2, cerebrovascular disease, coronary artery disease, as well as peripheral vascular disease. HOME MEDICATIONS: Include baclofen, Percocet, Zofran, Januvia, gabapentin, Coreg, lisinopril, amlodipine, Xarelto, and rosuvastatin. ALLERGIES: INCLUDE CONTRAST, SULFA, LACTOSE. SOCIAL HISTORY: Notable for marijuana use. Denies alcohol or tobacco use. REVIEW OF SYSTEMS: See H and P. PHYSICAL EXAMINATION: GENERAL: Well-nourished male, in minimal distress. VITAL SIGNS: Unremarkable. HEART: Regular rate and rhythm. LUNGS: Clear to auscultation. ABDOMEN: Benign. EXTREMITIES: Right lower extremity has multiple nonhealing wounds on the medial aspect of the right thigh. LABORATORY DATA: Include a WBC of 11, hematocrit of 32, and platelet count of 190. Chemistries; BUN and creatinine are 33 and 0.9. IMAGING STUDIES: CTA, with runoff reveals occlusion of right common iliac, external iliac, ____ stenosis of the common femoral. Profunda is patent ____ stenosis. IMPRESSION: * Multilevel disease with nonhealing wounds in the medial aspect of the right thigh, likely ischemic in nature. * History of atrial fibrillation. * Hypertension. * Coronary artery disease. * Cerebrovascular disease. * Peripheral vascular disease, status post multiple stents. * Atrial fibrillation. RECOMMENDATIONS: Right common femoral endarterectomy in an attempt to improve blood flow to obtain wound healing to right lower extremity. Carlton Rubalcava MD TID: [id number] RECEIPT: [id number] AJIT/REYNALDO
--- NOTE | 2025-06-03 19:29 | PROGRESS NOTE ---
Daily Progress Note Providers to CC ~ no new complaint today, awaiting to go to OR for endarterectomy Central Line/PICC still needed: No Tracey-Non Protocol Tracey Indications Met/Not Met: F/C Indications Not Met Antibiotic Timeout Antibiotic Ordered?: Yes MRSA Education MRSA Education Provided to pt: Yes Subjective As above Objective Vital Signs Date Time Temp Pulse Resp B/P (MAP) Pulse Ox O2 Delivery O2 Flow Rate FiO2 06/03/25 18:00 97.9 84 14 149/67 (94) 96 Nasal Cannula 2.0 Vital signs, stable ,afebrile. Pulse Oximetry reflects adequate oxygenation. General: well developed, well nourished. Awake , alert, and oriented x4, resting comfortably in the bed, in no acute distress . Skin: Warm, dry, no pallor, no rash or petechiae. HEENT: Atraumatic, normocephalic, EOMI, anicteric sclera B; pink conjunctiva; PERRLA, normal oropharynx, moist oral and nasal mucosa. Tympanic membrane , nose , throat clear. Neck: Trachea midline. Supple, full range of motion, no JVD, bruit , hepatojugular reflex , lymphadenopathy or masses, or other lesions Cardiac: Regular rhythm, regular rate no murmurs, rubs, or gallops. Normal S1 and S2, no S3 noticed. PMI is normal. Respiratory: Equal breath sounds bilaterally, no tachypnea; lungs clear to auscultation bilaterally, no wheezing ,rub or rales, or crackles. Chest wall is symmetric and without deformity. No signs of trauma. Chest wall is nontender. No signs of respiratory distress. Resonance is normal upon percussion bilaterally. Gastrointestinal: Abdomen symmetric, non-distended, soft, non-tender, normal bowel sounds x4 quadrant, normoactive, no hepatosplenomegaly , no masses , no bruit, no flank pain bilaterally. No voluntary guarding, rebound, or rigidity. No tenderness to percussion. No pulsatile masses. Equal femoral pulses. No Kaur's sign or McBurney point tenderness. Back; no CVA tenderness bilaterally, no deformities. Neck and back are without deformity as well. No tenderness noted on palpation of the spinous processes. Spinous processes are midline. Cervical, thoracic, and lumbar paraspinal muscles are not tender and are without spasm. : normal external genitalia, without lesions, swelling, masses or tenderness. Musculoskeletal: Extremities, normal range of motion, non-tender, muscle strength 5/5 x 4. Negative Homans signs bilaterally on lower extremity. Bilateral AKA, dressing clean dry intact Neurological: Speech is clear, alert, and oriented x 4. No motor or sensory deficit, deep tendon reflexes normal, cerebellar intact. Cranial nerves II-XII intact. Psych: Alert and or appropriate, normal affect. Vascular: Good distal pulses, which are equal x4; capillary refill less than 2 seconds. Lymphatic, no lymphadenopathy. Result Diagram: 06/01/2542706/01/25427 Problem\Assessment\Plan 74yo male with uncontrolled diabetes with chronic ulcer in right groin, failed outpatient management, was discharged with linezolid in March. Assessment & Plan Cellulitis, right groin, failed outpatient management Diabetic ulcer Hyperglycemia Prerenal TINA likely 2/2 vasomotor nephropathy PAD s/p b/l AKA CT lower extremity: Right medial thigh region subcutaneous thickening with soft tissue stranding may represent cellulitis. No loculated collection identified. -05/28: on meropenem, IVF, Lantus/supplemental, consulted ID Dr. Galan, wound care -05/29: Abx changed to daptomycin, per ID recommendation. Premedicated CTA aorta w/ runoff to be done. -05/30: CTA aorta w/runoff positive for occluded right common iliac artery, external iliac artery, high-grade stenosis of the right common femoral artery, severe multifocal high-grade tandem stenoses of the right superficial femoral artery with distal occlusion, occluded left superficial femoral artery, will consult vascular surgeon tomorrow as there is no sr solutions consultant available until tomorrow. -06/01: Vascular surgeon Dr. Rubalcava consulted. Scheduled for endarterectomy today Atrial fibrillation, CHADS-VASc 6 HTN CAD s/p CABG PAD s/p b/l AKA PAD s/p right common iliac and external iliac stent HLD NIDDM Uncontrolled diabetes Hyperglycemia Hx DVT b/l AKA -A1c 6.4%, LDL 61, TGL 63; currently in sinus rhythm, continue home carvedilol, amlodipine, lisinopril, Xarelto, statin, Lantus/supplemental -05/29: hydralazine added Code status: Full code DVT/VTE Prophylaxis: Xarelto Sepsis Screening Reassessment Date: Jun 03, 2025 Date of Service: Jun 03, 2025 Billing Provider: OSMANY MENDOZA MD Common Visit Codes: [id number] INP/OBS CARE(HIGH) OSMANY MENDOZA MD Jun 03, 2025 19:29
[2025-06-04] VITALS (20 sets, daily range): BP systolic 111–155; BP diastolic 32–72; PULSE 54–108; RESP 8–15; TEMP 97.5–98; O2SAT 94–98
[2025-06-04 03:09] LABS: MEAN PLATELET VOLUME 10.1 FL (7.4-10.4); RED CELL DISTRIBUTION WIDTH 15.5 % (11.5-14.5)
[2025-06-04 03:23] LABS: INR 1.2 INR
[2025-06-04 04:28] LABS: CREATININE 0.97 MG/DL (0.60-1.10); TOTAL CARBON DIOXIDE 19.7 MMOL/L (24-32); eCRCL 21 ML/MIN; eGFR 75 ML/MIN
[2025-06-04] MEDS ORDERED: FURO20TA4 PO (07:24)
--- NOTE | 2025-06-04 09:12 | OPERATIVE REPORT ---
DATE OF SURGERY: 06/03/2025 DICTATING PHYSICIAN: Carlton Rubalcava MD PREOPERATIVE DIAGNOSIS: with nonhealing wounds. POSTOPERATIVE DIAGNOSIS: with nonhealing wounds. PROCEDURES PERFORMED: * Right common femoral endarterectomy. * Right SFA endarterectomy. SURGEON: Carlton Rubalcava MD MIRROR FRAMER: Paige. ANESTHESIA: General/Dr. Sexton. DRAINS: None. INDICATIONS FOR OPERATION: The patient is a 74-year-old male with history of vascular disease and previous amputations who developed nonhealing wounds over the medial aspect of his right thigh. The patient was found to have occlusion of the iliac as well as right common femoral artery and profunda stenosis. The patient was taken to surgery for endarterectomy of the common femoral to improve blood flow and obtain wound healing. INTRAOPERATIVE FINDINGS: The patient had extensive plaque of the common femoral, SFA and profunda with some inflow post endarterectomy despite iliac artery occlusion. DESCRIPTION OF PROCEDURE: The patient was placed supine on the operating table. After induction of general anesthesia and placement of endotracheal tube, abdomen and legs were prepped and draped. Incision was made in the left and right and was extended down through subcutaneous fat and fascia. was identified and incised. Common femoral, SFA and profunda subsequently isolated. The patient was heparinized with 6,000 units of heparin. After 3 minutes, common, profunda and SFA were occluded. Arteriotomy was made and extended proximally and distally. Endarterectomy was then performed in the common femoral, profunda and SFA. Bovine pericardial patch was brought to the field and secured in place with running suture of 6-0 Prolene. Flow was then reestablished to the right lower extremity. The patient had a good flow by Doppler. Wound was irrigated with antibiotic-containing solution. Wound was closed in layers. Skin closed with clips. Prevena place. Dressing applied. The patient was transferred to recovery in stable condition. Carlton Rubalcava MD TID: [id number] RECEIPT: [id number] AJIT/SLIME/ANDREW
--- NOTE | 2025-06-04 11:36 | PROGRESS NOTE ---
Daily Progress Note Providers to CC ~ Antibiotic Timeout Antibiotic Ordered?: Yes Objective Vital Signs Date Time Temp Pulse Resp B/P (MAP) Pulse Ox O2 Delivery O2 Flow Rate FiO2 06/04/25 11:00 14 06/04/25 11:00 98.6 70 133/36 (68) 96 Room Air 06/04/25 05:00 2.0 Result Diagram: 06/04/25 0250 06/04/25 0250 Coagulation Studies Laboratory Tests Test 06/04/25 02:50 Prothrombin Time 11.8 SECONDS (9.0-12.0) INR International Normalized Ratio 1.2 INR Coagulation Comments Problem\Assessment\Plan 74yo male with uncontrolled diabetes with chronic ulcer in right groin, failed outpatient management, was discharged with linezolid in March. Assessment & Plan Cellulitis, right groin, failed outpatient management Diabetic ulcer Hyperglycemia Prerenal TINA likely 2/2 vasomotor nephropathy PAD s/p b/l AKA CT lower extremity: Right medial thigh region subcutaneous thickening with soft tissue stranding may represent cellulitis. No loculated collection identified. -05/28: on meropenem, IVF, Lantus/supplemental, consulted ID Dr. Galan, wound care -05/29: Abx changed to daptomycin, per ID recommendation. Premedicated CTA aorta w/ runoff to be done. -05/30: CTA aorta w/runoff positive for occluded right common iliac artery, external iliac artery, high-grade stenosis of the right common femoral artery, severe multifocal high-grade tandem stenoses of the right superficial femoral artery with distal occlusion, occluded left superficial femoral artery, will consult vascular surgeon tomorrow as there is no home energy consultant available until tomorrow. -06/01: Vascular surgeon Dr. Rubalcava consulted. Scheduled for endarterectomy today Atrial fibrillation, CHADS-VASc 6 HTN CAD s/p CABG PAD s/p b/l AKA PAD s/p right common iliac and external iliac stent HLD NIDDM Uncontrolled diabetes Hyperglycemia Hx DVT b/l AKA -A1c 6.4%, LDL 61, TGL 63; currently in sinus rhythm, continue home carvedilol, amlodipine, lisinopril, Xarelto, statin, Lantus/supplemental -05/29: hydralazine added Code status: Full code DVT/VTE Prophylaxis: Xarelto Date of Service: Jun 04, 2025 Billing Provider: OSMANY MENDOZA MD Common Visit Codes: [id number] INP/OBS CARE(HIGH) OSMANY MENDOZA MD Jun 04, 2025 11:36
[2025-06-04] MEDS ORDERED: iohexol 350 MG/ML 50ML vial IV ONE ×2 (14:14)
[2025-06-04] MEDS: ondansetron/PF 4mg/2ml inj IV PRN (17:18)
--- NOTE | 2025-06-04 17:51 | PROGRESS NOTE ---
Progress Note ID Providers to CC ~ Progress Note Progress Note: pain improving/vss/dressing intact/labs noted/cta ordered to assess RLE flow a/p 1. s/p enrolled nurse endarterectomy-doing well/resume JAG Thomas MD Jun 04, 2025 17:51
--- NOTE | 2025-06-04 18:13 | PROGRESS NOTE ---
Daily Progress Note Providers to CC ~ feels better today, pain well controlled tolerates treatment okay Central Line/PICC still needed: No Tracey-Non Protocol Tracey Indications Met/Not Met: F/C Indications Not Met Antibiotic Timeout Antibiotic Ordered?: Yes MRSA Education MRSA Education Provided to pt: Yes Subjective As above Objective Vital Signs Date Time Temp Pulse Resp B/P (MAP) Pulse Ox O2 Delivery O2 Flow Rate FiO2 06/04/25 17:00 12 06/04/25 17:00 98.2 67 128/53 (78) 96 Room Air 06/04/25 05:00 2.0 Vital signs, stable ,afebrile. Pulse Oximetry reflects adequate oxygenation. General: well developed, well nourished. Awake , alert, and oriented x4, resting comfortably in the bed, in no acute distress . Skin: Warm, dry, no pallor, no rash or petechiae. HEENT: Atraumatic, normocephalic, EOMI, anicteric sclera B; pink conjunctiva; PERRLA, normal oropharynx, moist oral and nasal mucosa. Tympanic membrane , nose , throat clear. Neck: Trachea midline. Supple, full range of motion, no JVD, bruit , hepatojugular reflex , lymphadenopathy or masses, or other lesions Cardiac: Regular rhythm, regular rate no murmurs, rubs, or gallops. Normal S1 and S2, no S3 noticed. PMI is normal. Respiratory: Equal breath sounds bilaterally, no tachypnea; lungs clear to auscultation bilaterally, no wheezing ,rub or rales, or crackles. Chest wall is symmetric and without deformity. No signs of trauma. Chest wall is nontender. No signs of respiratory distress. Resonance is normal upon percussion bilaterally. Gastrointestinal: Abdomen symmetric, non-distended, soft, non-tender, normal bowel sounds x4 quadrant, normoactive, no hepatosplenomegaly , no masses , no bruit, no flank pain bilaterally. No voluntary guarding, rebound, or rigidity. No tenderness to percussion. No pulsatile masses. Equal femoral pulses. No Kaur's sign or McBurney point tenderness. Back; no CVA tenderness bilaterally, no deformities. Neck and back are without deformity as well. No tenderness noted on palpation of the spinous processes. Spinous processes are midline. Cervical, thoracic, and lumbar paraspinal muscles are not tender and are without spasm. : normal external genitalia, without lesions, swelling, masses or tenderness. Musculoskeletal: Extremities, normal range of motion, non-tender, muscle strength 5/5 x 4. Negative Homans signs bilaterally on lower extremity. Distal pulses full symmetrical, no clubbing, cyanosis , edema. Neurological: Speech is clear, alert, and oriented x 4. No motor or sensory deficit, deep tendon reflexes normal, cerebellar intact. Cranial nerves II-XII intact. Psych: Alert and or appropriate, normal affect. Vascular: Good distal pulses, which are equal x4; capillary refill less than 2 seconds. Lymphatic, no lymphadenopathy. Result Diagram: 06/04/25 0250 06/04/25 0250 Coagulation Studies Laboratory Tests Test 06/04/25 02:50 Prothrombin Time 11.8 SECONDS (9.0-12.0) INR International Normalized Ratio 1.2 INR Coagulation Comments Problem\Assessment\Plan 74yo male with uncontrolled diabetes with chronic ulcer in right groin, failed outpatient management, was discharged with linezolid in March. Assessment & Plan Cellulitis, right groin, failed outpatient management Diabetic ulcer Hyperglycemia Prerenal TINA likely 2/2 vasomotor nephropathy PAD s/p b/l AKA CT lower extremity: Right medial thigh region subcutaneous thickening with soft tissue stranding may represent cellulitis. No loculated collection identified. -05/28: on meropenem, IVF, Lantus/supplemental, consulted ID Dr. Galan, wound care -05/29: Abx changed to daptomycin, per ID recommendation. Premedicated CTA aorta w/ runoff to be done. -05/30: CTA aorta w/runoff positive for occluded right common iliac artery, external iliac artery, high-grade stenosis of the right common femoral artery, severe multifocal high-grade tandem stenoses of the right superficial femoral artery with distal occlusion, occluded left superficial femoral artery, will consult vascular surgeon tomorrow as there is no renewable energy consultant available until tomorrow. -06/01: Vascular surgeon Dr. Ruablcava managing patient, status post iliac endarterectomy, postoperative day one, good recovery Atrial fibrillation, CHADS-VASc 6 HTN CAD s/p CABG PAD s/p b/l AKA PAD s/p right common iliac and external iliac stent HLD NIDDM Uncontrolled diabetes Hyperglycemia Hx DVT b/l AKA -A1c 6.4%, LDL 61, TGL 63; currently in sinus rhythm, continue home carvedilol, amlodipine, lisinopril, Xarelto, statin, Lantus/supplemental -05/29: hydralazine added Code status: Full code DVT/VTE Prophylaxis: Xarelto Sepsis Screening Reassessment Date: Jun 04, 2025 Date of Service: Jun 04, 2025 Billing Provider: OSMANY MENDOZA MD Common Visit Codes: [id number] INP/OBS CARE(HIGH) OSMANY MENDOZA MD Jun 04, 2025 18:13
[2025-06-04] MEDS: lactose-reduced food (Ensure High Protein) 237ml bottle PO SCH (18:24)
[2025-06-05] VITALS (8 sets, daily range): BP systolic 123–142; BP diastolic 48–59; PULSE 55–88; RESP 14–16; TEMP 97.2–97.8; O2SAT 95–98
[2025-06-05] MEDS: lactobacillus rhamnosus 10,000 MMU CELLS/CAPSULE PO SCH (09:36)
[2025-06-05 09:39] LABS: MEAN PLATELET VOLUME 10.2 FL (7.4-10.4); RED CELL DISTRIBUTION WIDTH 15.2 % (11.5-14.5)
--- NOTE | 2025-06-05 12:37 | RADIOLOGY REPORT ---
Examination: CT CTA ABDOMEN LOWER EXTR RUNOFF CLINICAL HISTORY: vasculat surg post op Comparison: 05/30/2025 Technique: Using helical technique, CT data from the lung bases through the toes was obtained during rapid IV contrast infusion. The examination was timed to the arterial system to generate a CT angiogr aphic study. 3D images were generated at an independent work station. Dose reduction techniques inclu ded automated exposure control. Radiation Dose Information: CT Dose: CTDI volume is 18.7 mGy. Dose-length product is 2604.2 mGy*cm Findings: Vascular: Abdominal aorta: Normal caliber, patent Celiac artery: Moderate stenosis. SMA: Patent Renal arteries: Patent, moderate bilateral atherosclerotic disease. SY: Patent Right lower extremity: Common iliac artery: Occluded. External iliac artery: Occluded Internal iliac artery: Occluded Common femoral artery: Occluded Profunda femoral artery: Faint flow. Superficial femoral artery: Occluded. Faint flow distally. Above the knee amputation. Left lower extremity: Common iliac artery: Patent External iliac artery: Patent Internal iliac artery: Patent Common femoral artery: Patent Profunda femoral artery: Patent Superficial femoral artery: Occluded. Above the knee amputation. Portal/mesenteric veins: normal Abdominal systemic veins: normal Chest: Lungs/Pleura: Diffuse increased interstitial prominence may represent atelectasis, fluid overload or changes of pulmonary fibrosis. Cardiomegaly. Coronary artery calcifications. Vascular calcifications of the aorta. Abdomen/Pelvis: Liver: The liver is normal in size and morphology,. No focal hepatic lesion. The portal veins are pat ent. Biliary System: Gallbladder: Normal Bile Ducts: No intrahepatic or extrahepatic biliary ductal dilation. Spleen: No splenomegaly or focal splenic lesion. Pancreas: No masses or ductal dilation. Adrenals: Normal. Urinary System: Kidneys and Ureters: Normal in size and location. No renal masses. No renal or ureteral calculi. No hydronephrosis or hydroureter. Bladder: Tracey catheter in the urinary bladder. GI System: Stomach, small bowel, and large bowel are normal in caliber without wall thickening or dil ation Lymph nodes: No lymphadenopathy. Peritoneal cavity and surface: No free fluid. No pneumoperitoneum. Soft Tissues: Normal. Reproductive Organs: Prostatic brachytherapy seeds are present. Bones: No acute fracture or aggressive osseous lesion. Impression: Diffuse vascular atherosclerotic disease. Occlusion of the right common iliac artery, external iliac artery, internal iliac artery, common femo ral artery and superficial femoral artery. There is faint flow in the right deep femoral artery and faint flow in the distal right superficial f emoral artery. Left superficial femoral artery is occluded.
[2025-06-05] MEDS ORDERED: HYDROmorph/NS 0.2 mg/ml PCA 100 ML IV SCH (13:00)
--- NOTE | 2025-06-05 17:18 | PROGRESS NOTE ---
Daily Progress Note Providers to CC Feels better today, pain well controlled ~ Central Line/PICC still needed: No Tracey-Non Protocol Tracey Indications Met/Not Met: F/C Indications Not Met Antibiotic Timeout Antibiotic Ordered?: Yes MRSA Education MRSA Education Provided to pt: Yes Subjective As above Objective Vital Signs Date Time Temp Pulse Resp B/P (MAP) Pulse Ox O2 Delivery O2 Flow Rate FiO2 06/05/25 15:00 97.4 88 14 123/57 (79) 97 Room Air 06/04/25 05:00 2.0 Vital signs, stable ,afebrile. Pulse Oximetry reflects adequate oxygenation on 2 L oxygen nasal cannula General: well developed, well nourished. Awake , alert, and oriented x4, resting comfortably in the bed, in no acute distress . Skin: Warm, dry, no pallor, no rash or petechiae. HEENT: Atraumatic, normocephalic, EOMI, anicteric sclera B; pink conjunctiva; PERRLA, normal oropharynx, moist oral and nasal mucosa. Tympanic membrane , nose , throat clear. Neck: Trachea midline. Supple, full range of motion, no JVD, bruit , hepatojugular reflex , lymphadenopathy or masses, or other lesions Cardiac: Regular rhythm, regular rate no murmurs, rubs, or gallops. Normal S1 and S2, no S3 noticed. PMI is normal. Respiratory: Equal breath sounds bilaterally, no tachypnea; lungs clear to auscultation bilaterally, no wheezing ,rub or rales, or crackles. Chest wall is symmetric and without deformity. No signs of trauma. Chest wall is nontender. No signs of respiratory distress. Resonance is normal upon percussion bilaterally. Gastrointestinal: Abdomen symmetric, non-distended, soft, non-tender, normal bowel sounds x4 quadrant, normoactive, no hepatosplenomegaly , no masses , no bruit, no flank pain bilaterally. No voluntary guarding, rebound, or rigidity. No tenderness to percussion. No pulsatile masses. Equal femoral pulses. No Kaur's sign or McBurney point tenderness. Back; no CVA tenderness bilaterally, no deformities. Neck and back are without deformity as well. No tenderness noted on palpation of the spinous processes. Spinous processes are midline. Cervical, thoracic, and lumbar paraspinal muscles are not tender and are without spasm. : normal external genitalia, without lesions, swelling, masses or tenderness. Musculoskeletal: Extremities, normal range of motion, non-tender, muscle strength 5/5 x 4. Negative Homans signs bilaterally on lower extremity. Distal pulses full symmetrical, no clubbing, cyanosis , edema. Dressing clean dry intact Neurological: Speech is clear, alert, and oriented x 4. No motor or sensory deficit, deep tendon reflexes normal, cerebellar intact. Cranial nerves II-XII intact. Psych: Alert and or appropriate, normal affect. Vascular: Good distal pulses, which are equal x4; capillary refill less than 2 seconds. Lymphatic, no lymphadenopathy. Result Diagram: 06/05/25 0922 06/04/25 0250 Coagulation Studies Laboratory Tests Test 06/04/25 02:50 Prothrombin Time 11.8 SECONDS (9.0-12.0) INR International Normalized Ratio 1.2 INR Coagulation Comments Problem\Assessment\Plan 74yo male with uncontrolled diabetes with chronic ulcer in right groin, failed outpatient management, was discharged with linezolid in March. Assessment & Plan Cellulitis, right groin, secondary to PVD and diabetes mellitus type 2 Diabetic ulcer Hyperglycemia Prerenal TINA likely 2/2 vasomotor nephropathy PAD s/p b/l AKA CT lower extremity: Right medial thigh region subcutaneous thickening with soft tissue stranding may represent cellulitis. No loculated collection identified. -05/28: on meropenem, IVF, Lantus/supplemental, consulted ID Dr. Galan, wound care -05/29: Abx changed to daptomycin, per ID recommendation. Premedicated CTA aorta w/ runoff to be done. -05/30: CTA aorta w/runoff positive for occluded right common iliac artery, external iliac artery, high-grade stenosis of the right common femoral artery, severe multifocal high-grade tandem stenoses of the right superficial femoral artery with distal occlusion, occluded left superficial femoral artery, will consult vascular surgeon tomorrow as there is no net developer consultant available until tomorrow. Vascular surgeon Dr. Rubalcava managing patient, status post iliac endarterectomy, good recovery, CTA completed Atrial fibrillation, CHADS-VASc 6 HTN CAD s/p CABG PAD s/p b/l AKA PAD s/p right common iliac and external iliac stent HLD NIDDM Uncontrolled diabetes Hyperglycemia Hx DVT b/l AKA -A1c 6.4%, LDL 61, TGL 63; currently in sinus rhythm, continue home carvedilol, amlodipine, lisinopril, Xarelto, statin, Lantus/supplemental -05/29: hydralazine added Code status: Full code DVT/VTE Prophylaxis: Xarelto Date of Service: Jun 05, 2025 Billing Provider: OSMANY MENDOZA MD Common Visit Codes: [id number] INP/OBS CARE(HIGH) OSMANY MENDOZA MD Jun 05, 2025 17:18
[2025-06-05 17:49] LABS: OSMOLALITY 302 MOSM/K (280-300)
[2025-06-05 17:54] LABS: CREATININE 1.04 MG/DL (0.60-1.10); TOTAL CARBON DIOXIDE 22.0 MMOL/L (24-32); eCRCL 19 ML/MIN; eGFR 70 ML/MIN
[2025-06-05] MEDS: PCA WASTE DOCUMENTATION 1 MG ML MC SCH (18:01)
[2025-06-05 18:02] LABS: PRO BRAIN NATRIURETIC PEPTIDE 1993 PG/ML (0-450)
[2025-06-05 18:35] LABS: LEUKOCYTE ESTERASE ,URINE NEGATIVE (Neg); NITRITES, URINE NEGATIVE (Neg); OCCULT BLOOD,URINE TRACE-INTACT (Neg)
[2025-06-05 18:37] LABS: UA COLLECTION TYPE NON-SPECIFIED
[2025-06-05 18:46] LABS: MUCUS STRANDS NONE SEEN /LPF (Neg); SQUAMOUS EPITHELIAL CELL,UR NONE SEEN /LPF (FEW)
--- NOTE | 2025-06-05 19:57 | PROGRESS NOTE ---
Progress Note ID Providers to CC ~ Progress Note Progress Note: pain improving/vss/dressing intact/ct noted a/p 1. s/p activities counselor endarterectomy-slow progress/cont supportive care JAG BENAVIDES MD Jun 05, 2025 19:57
[2025-06-06 02:00] VITALS: BP 141/50; PULSE 62; RESP 16; TEMP 97.3; O2SAT 97
[2025-06-06 07:00] VITALS: BP 147/54; PULSE 48; RESP 16; TEMP 97.5; O2SAT 96
[2025-06-06 11:00] VITALS: BP 130/50; PULSE 56; RESP 14; TEMP 97.6; O2SAT 97
[2025-06-06 11:08] VITALS: RESP 16
[2025-06-06 11:20] LABS: MEAN PLATELET VOLUME 10.3 FL (7.4-10.4); RED CELL DISTRIBUTION WIDTH 15.5 % (11.5-14.5)
[2025-06-06] MEDS ORDERED: CLIN-232 PO (12:31)
--- NOTE | 2025-06-06 14:56 | DISCHARGE SUMMARY ---
Discharge Summary Providers to CC No new complaint today, cleared by surgeon to be discharged home ~ Discharge Summary Assessment right groin Open infected wound Right groin cellulitis Diabetes mellitus type 2 poor control Severe peripheral vascular disease Status post bilateral above-knee amputation Status post right femoral artery endarterectomy Atrial fibrillation controlled ventricular rate Chronic pain syndrome on home opioids Coronary artery disease History Of DVT Admission Diagnosis: rle ischemia Admission Diagnosis Comment: right groin Open infected wound Right groin cellulitis Diabetes mellitus type 2 poor control Severe peripheral vascular disease Status post bilateral above-knee amputation Status post right femoral artery endarterectomy Atrial fibrillation controlled ventricular rate Chronic pain syndrome on home opioids Coronary artery disease History Of DVT Hospital Course DATE OF ADMISSION: May 27, 2024 DATE OF DISCHARGE: June 06, 2024 Discharge Diagnosis\Comment: right groin Open infected wound Right groin cellulitis Diabetes mellitus type 2 poor control Severe peripheral vascular disease Status post bilateral above-knee amputation Status post right femoral artery endarterectomy Atrial fibrillation controlled ventricular rate Chronic pain syndrome on home opioids Coronary artery disease History Of DVT Operations\Procedures: Right femoral artery endarterectomy Consultants: Vascular surgeon Dr. Bolanos, infectious disease doctor Complications: Non Condition on DC: Stable Discharge Summary: A 74-year-old male with past medical history AFib, HTN, diabetes mellitus type 2 of presented to the ED in view of infection and wound in the right groin since the end january. Patient was treated at home by a home nurse and wound care once a week, the wound did not get better per the patient. Patient uses oxycodone five for pain that did not help him this afternoon. Patient had worsened pain with a severity of 10/10, sharp, nonradiating with no aggravating or relieving factors. Patient says the wound has been about the same since the end of January despite multiple antibiotic regimen and wound care. Patient denies fever, chills, burning micturition.Patient was recently admitted in Mar, 2025 in view of scrotum cellulitis. Patient also had multiple admissions with regards to scrotum cellulitis. Patient was discharged on the 20 of March with IV linezolid 600 mg p.o. q.12h for 10 days. Patient has been on multiple antibiotics for the same in the past 3-4 months. After admission patient was extensively evaluated including by vascular surgeon and infectious disease doctor treated feels better today of pain endarterectomy, cleared for discharge by surgeon, he will be discharged in stable condition, medication reconciled, follow-up PCP and surgeon in three days, return to emergency department if condition worsens, today on physical exam Vital signs, stable ,afebrile. Pulse Oximetry reflects adequate oxygenation. General: well developed, well nourished. Awake , alert, and oriented x4, resting comfortably in the bed, in no acute distress . Skin: Warm, dry, no pallor, no rash or petechiae. HEENT: Atraumatic, normocephalic, EOMI, anicteric sclera B; pink conjunctiva; PERRLA, normal oropharynx, moist oral and nasal mucosa. Tympanic membrane , nose , throat clear. Neck: Trachea midline. Supple, full range of motion, no JVD, bruit , hepatojugular reflex , lymphadenopathy or masses, or other lesions Cardiac: Regular rhythm, regular rate no murmurs, rubs, or gallops. Normal S1 and S2, no S3 noticed. PMI is normal. Respiratory: Equal breath sounds bilaterally, no tachypnea; lungs clear to auscultation bilaterally, no wheezing ,rub or rales, or crackles. Chest wall is symmetric and without deformity. No signs of trauma. Chest wall is nontender. No signs of respiratory distress. Resonance is normal upon percussion bilaterally. Gastrointestinal: Abdomen symmetric, non-distended, soft, non-tender, normal bowel sounds x4 quadrant, normoactive, no hepatosplenomegaly , no masses , no bruit, no flank pain bilaterally. No voluntary guarding, rebound, or rigidity. No tenderness to percussion. No pulsatile masses. Equal femoral pulses. No Kaur's sign or McBurney point tenderness. Back; no CVA tenderness bilaterally, no deformities. Neck and back are without deformity as well. No tenderness noted on palpation of the spinous processes. Spinous processes are midline. Cervical, thoracic, and lumbar paraspinal muscles are not tender and are without spasm. : normal external genitalia, without lesions, swelling, masses or tenderness. Musculoskeletal: Extremities, normal range of motion, non-tender, muscle strength 5/5 x 4. Negative Homans signs bilaterally on lower extremity. Distal pulses full symmetrical, no clubbing, cyanosis , locally, bilateral above-knee amputation noticed, dressing clean dry intact Neurological: Speech is clear, alert, and oriented x 4. No motor or sensory deficit, deep tendon reflexes normal, cerebellar intact. Cranial nerves II-XII intact. Psych: Alert and or appropriate, normal affect. Vascular: Good distal pulses, which are equal x4; capillary refill less than 2 seconds. Lymphatic, no lymphadenopathy. *Problems/Diagnosis: (1) Coronary artery disease Status: Acute (2) Severe peripheral arterial disease Status: Acute Total Time Spent on D/C: > 30 Minutes Date of Service: Jun 06, 2025 Billing Provider: OSMANY MENDOZA MD Common Visit Codes: 95012-PIC/OBS DISCH DAY >30min OSMANY MENDOZA MD Jun 06, 2025 14:56
== END 2025-06-06 15:23 | disposition home health service (06) | DRG 252 ==
LOC: ER 16:51 → ED HOLD 20:05 → ORTHO 4S 20:18 → ED HOLD 20:20 → EDBEDREQ 22:23 → SUR 3N 05-28 00:50 → ORTHO 4S 05-28 02:00 → CICU 2S 06-03 17:21 → PCU 3S 06-04 18:07
PROVIDERS: ADMIT Internal Medicine Sleep Medicine; ATTEND Nurse Practitioner Family
PROC: B4201ZZ Computerized Tomography (CT Scan) of Abdominal Aorta using Low Osmolar Contrast (ICD-10-PCS; 2025-05-30)
PROC: B4241ZZ Computerized Tomography (CT Scan) of Superior Mesenteric Artery using Low Osmolar Contrast (ICD-10-PCS; 2025-05-30)
PROC: B42C1ZZ Computerized Tomography (CT Scan) of Pelvic Arteries using Low Osmolar Contrast (ICD-10-PCS; 2025-05-30)
PROC: B42H1ZZ Computerized Tomography (CT Scan) of Bilateral Lower Extremity Arteries using Low Osmolar Contrast (ICD-10-PCS; 2025-05-30)
PROC: B4211ZZ Computerized Tomography (CT Scan) of Celiac Artery using Low Osmolar Contrast (ICD-10-PCS; 2025-05-30)
PROC: B4281ZZ Computerized Tomography (CT Scan) of Bilateral Renal Arteries using Low Osmolar Contrast (ICD-10-PCS; 2025-05-30)
PROC: B42H1ZZ Computerized Tomography (CT Scan) of Bilateral Lower Extremity Arteries using Low Osmolar Contrast (ICD-10-PCS; 2025-05-30)
PROC: 4A02XM4 Measurement of Cardiac Total Activity, External Approach (ICD-10-PCS; 2025-06-02)
PROC: 3E033HZ Introduction of Radioactive Substance into Peripheral Vein, Percutaneous Approach (ICD-10-PCS; 2025-06-02)
PROC: 04UK0KZ Supplement Right Femoral Artery with Nonautologous Tissue Substitute, Open Approach (ICD-10-PCS; 2025-06-03)
PROC: 04CK0ZZ Extirpation of Matter from Right Femoral Artery, Open Approach (ICD-10-PCS; principal; 2025-06-03 11:57)
PROC: B4201ZZ Computerized Tomography (CT Scan) of Abdominal Aorta using Low Osmolar Contrast (ICD-10-PCS; 2025-06-05)
PROC: B4241ZZ Computerized Tomography (CT Scan) of Superior Mesenteric Artery using Low Osmolar Contrast (ICD-10-PCS; 2025-06-05)
PROC: B42C1ZZ Computerized Tomography (CT Scan) of Pelvic Arteries using Low Osmolar Contrast (ICD-10-PCS; 2025-06-05)
PROC: B42H1ZZ Computerized Tomography (CT Scan) of Bilateral Lower Extremity Arteries using Low Osmolar Contrast (ICD-10-PCS; 2025-06-05)
PROC: B4211ZZ Computerized Tomography (CT Scan) of Celiac Artery using Low Osmolar Contrast (ICD-10-PCS; 2025-06-05)
PROC: B42H1ZZ Computerized Tomography (CT Scan) of Bilateral Lower Extremity Arteries using Low Osmolar Contrast (ICD-10-PCS; 2025-06-05)
PROC: B4281ZZ Computerized Tomography (CT Scan) of Bilateral Renal Arteries using Low Osmolar Contrast (ICD-10-PCS; 2025-06-05)
DX: E11.51 Type 2 diabetes mellitus with diabetic peripheral angiopathy without gangrene (principal); N17.0 Acute kidney failure with tubular necrosis; L03.314 Cellulitis of groin; L97.118 Non-pressure chronic ulcer of right thigh with other specified severity; I48.0 Paroxysmal atrial fibrillation; I10 Essential (primary) hypertension; E78.00 Pure hypercholesterolemia, unspecified; G89.4 Chronic pain syndrome; I25.10 Atherosclerotic heart disease of native coronary artery without angina pectoris; J44.9 Chronic obstructive pulmonary disease, unspecified; S71.101A Unspecified open wound, right thigh, initial encounter; X58.XXXA Exposure to other specified factors, initial encounter; E11.65 Type 2 diabetes mellitus with hyperglycemia; Z91.041 Radiographic dye allergy status; Z88.8 Allergy status to other drugs, medicaments and biological substances; Z91.09 Other allergy status, other than to drugs and biological substances; Z79.84 Long term (current) use of oral hypoglycemic drugs; Z79.899 Other long term (current) drug therapy; Z88.1 Allergy status to other antibiotic agents; Z88.2 Allergy status to sulfonamides; Y93.89 Activity, other specified; Y92.89 Other specified places as the place of occurrence of the external cause; Y99.8 Other external cause status; Z95.1 Presence of aortocoronary bypass graft; Z89.611 Acquired absence of right leg above knee; Z89.612 Acquired absence of left leg above knee
CPT/HCPCS: 36415; 71045; 73700; 75635; 78452; 80048; 80053; 81001; 81003; 82550; 82948; 83036; 83605; 83735; 83880; 83930; 84145; 85025; 85610; 85651; 86140; 86885; 86900; 86901; 87040; 87081; 88300; 93005; 93017; 96361; 96365; 96375; 97161; 97530; 99285; A4215; A4615; A4618; A4649; A6212; A6213; A6258; A6402; A6449; A6455; A7000; A9500; C1751; C1758; G0378; J0131; J0694; J0878; J1100; J1171; J1200; J1644; J1815; J2003; J2185; J2250; J2270; J2405; J2704; J2710; J2785; J3010; J3373; J3490; J7030; J7040; J7120; J7512; Q0163; Q9967